=== PATIENT | female | born 1995 | race Caucasian/White ===

== ENCOUNTER 2018-08-30 23:08 | Inpatient (IN) ==
[2018-08-30] MEDS ORDERED: OXYTOCIN 30 UNITS/500 ML BAG IV PRN (23:38)
[2018-08-31 00:01] LABS: Hematocrit (blood only) 35.1 % (37-47); Hemoglobin 12.1 g/dL (12.0-16.0); Mean Corpuscular Volume 85.2 fL (80-100); Mean Platelet Volume 11.4 fL (7.4-10.4); Platelet Count 181 K/uL (130-400); RDW Coefficient of Variation 14.3 % (11.5-14.5); RDW Standard Deviation 44.5 fL (36.4-46.3); Red Blood Count 4.12 M/uL (4.2-5.4); White Blood Count 11.51 K/uL (4.8-10.8)
[2018-08-31 00:02] LABS: Mean Corpuscular Hgb Conc 34.5 g/dL (32-36)
[2018-08-31] MEDS ORDERED: fentaNYL 2MCG/ML ROPIV 1.25MG/ML 100 ML BAG EPI ONE (00:12)
[2018-08-31] MEDS ORDERED: BUPIVACAINE 0.25% 30 ML VIAL ONE (00:12)
[2018-08-31] MEDS ORDERED: fentaNYL citrate 100 MCG/2 ML VIAL ONE (00:12)
[2018-08-31] MEDS ORDERED: ePHEDrine sulfate 50 MG/ML AMP ONE (00:12)
[2018-08-31 00:17] LABS: Alanine Aminotransferase 18 U/L (12-78); Albumin Level 2.8 gm/dl (3.4-5.0); Aspartate Aminotransferase 16 U/L (15-37); BUN Creatinine Ratio 10.9 (10-20); Blood Urea Nitrogen 6 mg/dl (7-18); Calcium 9.7 mg/dl (8.5-10.1); Carbon Dioxide 23 mmol/L (21-32); Chloride 107 mmol/L (98-107); Est GFR (African American) > 150.0; Est GFR (Non-African American) 132.1; Glucose 90 mg/dl (70-99); Potassium 3.7 mmol/L (3.5-5.1); Sodium 138 mmol/L (136-145)
[2018-08-31 00:20] LABS: Albumin Globulin Ratio 0.7 (0.9-2); Alkaline Phosphatase 99 U/L (45-117); Bilirubin,Total 0.2 mg/dl (0.2-1); Globulin 4.2 gm/dl (2.5-4.0)
--- NOTE | 2018-08-31 00:32 | History & Physical Report ---
Date of Service August 31, 2018 Assessment & Plan (1) Uterine contractions at greater than 20 weeks of gestation: Patient is a 22 yo at 40.5 wks presenting in labor with regular ctxs and cervical change FHR reassuring, GBS negative Desires epidural for pain Plan admit, monitor, labs, epidural for acevedo, anticipate All questions were answered History of Present Illness Chief Complaint: Contractions Primary Care Provider: Erica Perez Patient is a 22 yo at 40.5 wks who started to feel ctxs yesterday got closer and stronger after 4 pm No LOF/VB +FM No DISLA/ Change in vision/ N&V/ Epigastric nor RUQ pain/ CP/ SOB/ fever/ chills Her has been uncomplicated GBS negative h/o FT in 2013 Allergies Allergy/AdvReac Type Severity Reaction Status Date / Time No Known Allergies Allergy Unverified 11/06/13 15:33 Home Medications Home Medications Medication Instructions Recorded Confirmed Type FERROUS SULFATE (IRON) #0 11/03/13 History Multivit/Min/Iron/Fol Ac/Pren 1 tab PO DAILY #0 tab 11/03/13 History ( Vitamin) Ferrous Sulfate 325 mg PO DAILY #30 tab 11/07/13 Rx Ibuprofen 600 mg PO Q4H PRN #30 tab 11/07/13 Rx Patient History Medical History No known health problems Surgical History No history of previous surgery Social History Preferred Language: Wallisian Communication Ability: Effective Associate 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: No Beliefs That Will Affect Care: None marital status: Current Living Situation: Family Other Information That Helps Us Care for You: No Feels Safe at Home: Yes Safety Concerns: Feels Safe At This Time Smoking Status: Never smoker Hx Alcohol Use: No Hx Substance Use: No OB History FT in 2013, 8 lb 6 oz [employer] History Denies any h/o STD's, no GC/ Chlamydia/ HSV Review of Systems All systems reviewed & are unremarkable except as noted in HPI & below Physical Exam Constitutional: WD/WN, vitals as above well developed and well nourished Uncomfortable with ctxs Genitourinary: Checked by her nurse / %/ -2, vertex Was 2 cm in office yesterday Results & Data Vital Signs (Past 12 Hours) Vital Signs Pulse BP 08/30/18 23:34 96 H 141/84 H Monitoring External Monitor Category I Tocodynamometer Ctxs q 2-3 min
[2018-08-31] MEDS ORDERED: fentaNYL 2MCG/ML ROPIV 1.25MG/ML 100 ML BAG EPI PRN (01:10)
[2018-08-31] MEDS ORDERED: PROMETHAZINE HCL 6.25 MG in SODIUM CHLORIDE 0.9% 50 ML IV PRN (01:10)
[2018-08-31] MEDS ORDERED: ePHEDrine sulfate 50 MG/ML AMP IV PRN (01:10)
[2018-08-31] MEDS ORDERED: DiphenhydrAMINE HCL 50 MG/ML VIAL IV PRN (01:10)
[2018-08-31] MEDS ORDERED: NALBUPHINE HCL INJ 10 MG/ML AMP IV PRN (01:10)
[2018-08-31] MEDS ORDERED: ONDANSETRON INJ 2 MG/ML 2 ML VIAL IV PRN (01:10)
[2018-08-31] MEDS ORDERED: NALOXONE HCL 0.4 MG/1 ML VIAL/CARP IV PRN (01:10)
[2018-08-31] MEDS ORDERED: NALOXONE HCL 1 MG in SODIUM CHLORIDE 0.9% 1000ML 1,000 ML IV PRN (01:10)
--- NOTE | 2018-08-31 01:10 | Anesthesiology Consultation ---
Date of Service August 31, 2018 Assessment & Plan (1) Encounter for pre-operative examination: Chart Review Chart Review: Patient NOT seen in Pre Admission Testing and Acceptable Risk for Labor Epidural Consults Requested none ASA ASA2 Proposed Anesthesia Anesthesia Type: Labor Epidural Risk / Benefits Reviewed With: PT / POA / Parent / Guardian, Accepts Plan and Informed Consent Obtained History Height/Weight Height: 5 ft 4 in Weight: 87.2 kg Allergies Allergy/AdvReac Type Severity Reaction Status Date / Time No Known Allergies Allergy Unverified 11/06/13 15:33 Medications Home Medications Medication Instructions Recorded Confirmed Last Taken FERROUS SULFATE (IRON) #0 11/03/13 Unknown Multivit/Min/Iron/Fol Ac/Pren 1 tab PO DAILY #0 tab 11/03/13 Unknown ( Vitamin) Ferrous Sulfate 325 mg PO DAILY #30 tab 11/07/13 Unknown Ibuprofen 600 mg PO Q4H PRN #30 tab 11/07/13 Unknown Active Medications Generic Name Dose Route Start Last Admin Trade Name Freq PRN Reason Stop Dose Admin Lactated Ringer's 1,000 mls @ 150 mls/hr 08/30/18 23:38 08/31/18 00:00 Lr IV 09/01/18 23:37 999 mls/hr .[id number] PRN Administration L&D Protocol Protocol NPO Date Last Intake of Fluids: 08/30/18 Time Last Intake of Fluids: 22:00 Date Last Intake of Solids: 08/30/18 Time Last Intake of Solids: 18:00 Past Medical History Medical History No known health problems Exercise / Class Metabolic Activity II 4-5 Yardwork/Stairs/Walk up hill Past Surgical History Surgical History No history of previous surgery Past Anesthesia History No Hx of Anesthesia Complications and No Family Hx of Anesthesia Complications History of PONV No Hx of PONV and No Hx of Motion Sickness Social History Smoking Status: Never smoker Hx Alcohol Use: No Hx Substance Use: No Physical Exam Vital Signs Last Vital Signs Temp 36.9 C 08/30/18 23:34 Pulse 96 H 08/31/18 01:06 Resp 18 08/31/18 00:16 BP 132/63 08/31/18 01:05 Pulse Ox 99 08/31/18 01:06 ENMT Mouth: no dentition abnormality Thyromental Distance: > or= 3.5 Finger Breadths Mallampati Class: II Neck normal visual inspection Respiratory normal respiratory effort Auscultation: lungs clear to auscultation bilaterally Cardiovascular Rate/Rhythm: regular rate and regular rhythm Psychiatric Orientation: alert
[2018-08-31] MEDS: LACTATED RINGER'S 1,000 ML IV PRN ×2 (01:13)
--- NOTE | 2018-08-31 05:53 | Obstetrical Progress Note ---
Date of Service August 31, 2018 Subjective Patient is reevaluated She received epidural for pain, had been comfortable, started to feel pressure with ctxs VE; 10/ 100%/ 0, OP, anterior fontanelle at 11 o'clock Leaking clear fluid FHR categ I Trial of push , no descent Plan peanut ball to help for internal roation and continue to monitor Results & Data Vital Signs (Past 12 Hours) Vital Signs Temp Pulse Resp BP Pulse Ox 08/31/18 05:47 112 H 132/56 L 08/31/18 05:46 104 H 96 08/31/18 05:45 98 H 93 08/31/18 05:41 109 H 95 08/31/18 05:37 93 H 94 08/31/18 05:36 106 H 95 08/31/18 05:32 105 H 93 08/31/18 05:31 99 H 95 08/31/18 05:30 98 H 131/73 08/31/18 05:26 102 H 95 08/31/18 05:25 106 H 94 08/31/18 05:21 98 H 95 08/31/18 05:20 108 H 94 08/31/18 05:16 104 H 95 08/31/18 05:11 100 H 95 08/31/18 05:06 98 H 95 08/31/18 05:01 106 H 128/73 96 08/31/18 04:56 97 H 96 08/31/18 04:51 102 H 96 08/31/18 04:46 104 H 95 08/31/18 04:45 103 H 171/75 H 08/31/18 04:41 102 H 96 08/31/18 04:36 105 H 95 08/31/18 04:31 105 H 96 08/31/18 04:26 103 H 96 08/31/18 04:21 101 H 96 08/31/18 04:16 103 H 96 08/31/18 04:15 104 H 146/71 H 08/31/18 04:11 102 H 96 08/31/18 04:06 99 H 95 08/31/18 04:05 37.2 C 08/31/18 04:01 104 H 96 08/31/18 04:00 105 H 126/71 08/31/18 03:56 101 H 96 08/31/18 03:51 93 H 95 08/31/18 03:46 91 H 95 08/31/18 03:44 90 125/59 L 08/31/18 03:41 92 H 96 08/31/18 03:36 102 H 96 08/31/18 03:31 92 H 95 08/31/18 03:30 86 128/59 L 08/31/18 03:26 92 H 95 08/31/18 03:21 93 H 95 08/31/18 03:16 90 96 08/31/18 03:14 90 131/69 08/31/18 03:11 92 H 95 08/31/18 03:06 94 H 96 08/31/18 03:01 90 130/67 96 08/31/18 02:56 92 H 96 08/31/18 02:51 98 H 96 08/31/18 02:46 93 H 130/64 95 08/31/18 02:41 93 H 96 08/31/18 02:36 100 H 96 08/31/18 02:31 98 H 96 08/31/18 02:29 97 H 136/76 08/31/18 02:26 97 H 96 08/31/18 02:21 94 H 97 08/31/18 02:16 94 H 129/75 96 08/31/18 02:11 93 H 97 08/31/18 02:06 100 H 96 08/31/18 02:01 97 H 96 08/31/18 02:00 36.9 C 08/31/18 01:59 105 H 140/70 08/31/18 01:56 98 H 96 08/31/18 01:51 96 H 96 08/31/18 01:46 94 H 96 08/31/18 01:45 91 H 131/71 08/31/18 01:41 96 H 96 08/31/18 01:36 89 97 08/31/18 01:31 90 97 08/31/18 01:29 87 127/70 08/31/18 01:26 90 98 08/31/18 01:21 95 H 98 08/31/18 01:16 95 H 98 08/31/18 01:14 90 129/70 08/31/18 01:11 94 H 133/67 99 08/31/18 01:08 92 H 133/65 08/31/18 01:06 96 H 99 08/31/18 01:05 93 H 132/63 05/19 01:02 93 H 133/65 08/31/18 01:01 99 H 100 08/31/18 00:57 102 H 134/60 08/31/18 00:56 108 H 100 08/31/18 00:51 101 H 100 08/31/18 00:16 18 08/30/18 23:34 36.9 C 96 H 141/84 H
[2018-08-31] MEDS ORDERED: DIPHTHERIA/TETANUS/PERTUSSIS 0.5 ML SYR/VIAL IM ONE (07:17)
[2018-08-31] MEDS ORDERED: ACETAMINOPHEN 325 MG TAB PO PRN (07:17)
[2018-08-31] MEDS ORDERED: OXYTOCIN 30 UNITS/500 ML BAG IV PRN (07:17)
[2018-08-31] MEDS ORDERED: SUPERCREAM 0.870% 15 GM JAR EXT PRN (07:17)
[2018-08-31] MEDS ORDERED: BENZOCAINE 20% AER SPR 82.5 GM CAN EXT PRN (07:17)
[2018-08-31] MEDS ORDERED: OXYCODONE/ACETAMINOPHEN 5mg/325mg TAB PO PRN (07:17)
[2018-08-31] MEDS ORDERED: HYDROCORTISONE ACETATE 25 MG SUPP PR PRN (07:17)
[2018-08-31] MEDS ORDERED: CEFAZOLIN 2000MG 2,000 MG/15 ML SYR IV ONE (07:45)
--- NOTE | 2018-08-31 07:53 | Delivery Summary ---
DATE OF OPERATION: 08/31/2018 TIME OF DELIVERY OF BABY: 06:53 a.m. TIME OF DELIVERY OF PLACENTA: 07:02 a.m. DETAILS OF DELIVERY: The patient was found to be fully dilated and desired to push. She pushed for about 35 minutes and delivered the head and turtle sign was noted and then anterior which was left shoulder was found to be stuck behind the pubic bone. Nursing team was noted of shoulder dystocia. They lowered the bed down and applied the suprapubic pressure and Akbar maneuver. I was unable to deliver the anterior shoulder. I then reached the posterior shoulder and delivered with minimal traction and the posterior arm and then anterior shoulder without difficulty within less than a minute. Baby was handed off to the mother where mouth and nose were suctioned. Cord was clamped x2 and cut and it was handed to the waiting pediatric team and Dr. Hearn. Cord blood was obtained. Perineum and vagina were checked for lacerations. There was a second-degree vaginal laceration in the lower third of vagina close to the hymen. It was repaired with 2-0 Vicryl in a running fashion. Excellent hemostasis was achieved. There was a first-degree periclitoral laceration which was repaired with 3-0 Vicryl and SH needle with [id number] stitches x2. Excellent hemostasis was achieved. Rest of the vagina and perineum were intact. The placenta was found to be in the vagina, delivered spontaneous as intact and complete. Uterus was explored, found to be empty. Lower segment was cleared of all clots and debris. EBL was 300ml. Fundus was firm. Mom and baby tolerated the procedure well. Sponge, lap, needle, instrument count was correct x2. Baby was a viable female infant, Apgars 8/9, weight is 4472 gr. No complications happened and I was present during whole procedure. I attest to the content of the Intraoperative Record and any orders documented therein. Any exceptions are noted below. MTDD
--- NOTE | 2018-08-31 08:55 | Anesthesia Procedure Note ---
Date of Service August 31, 2018 Anesthesia Post Epidural Note Vital Signs Vital Signs: Temp Pulse Resp BP Pulse Ox 08/31/18 08:29 108 H 113/66 08/31/18 08:15 103 H 107/82 08/31/18 08:00 97 H 107/54 L 08/31/18 07:44 104 H 126/63 08/31/18 07:29 102 H 123/71 08/31/18 07:15 85 120/63 08/31/18 07:13 115 H 125/55 L 08/31/18 07:01 117 H 93 08/31/18 07:00 120 H 134/61 08/31/18 06:56 124 H 96 08/31/18 06:51 153 H 97 08/31/18 06:46 162 H 96 08/31/18 06:41 149 H 96 08/31/18 06:36 145 H 97 08/31/18 06:31 119 H 95 08/31/18 06:30 104 H 123/69 08/31/18 06:26 102 H 98 08/31/18 06:24 102 H 94 08/31/18 06:21 98 H 95 08/31/18 06:19 102 H 94 08/31/18 06:16 99 H 92 08/31/18 06:15 96 H 132/71 08/31/18 06:13 100 H 94 08/31/18 06:11 36.9 C 105 H 96 08/31/18 06:06 113 H 96 08/31/18 06:04 90 93 08/31/18 06:01 100 H 96 08/31/18 06:00 95 H 131/73 08/31/18 05:57 94 H 94 08/31/18 05:56 91 H 95 08/31/18 05:52 93 H 94 08/31/18 05:51 101 H 96 08/31/18 05:47 112 H 132/56 L 08/31/18 05:46 104 H 96 08/31/18 05:45 98 H 93 08/31/18 05:41 109 H 95 08/31/18 05:37 93 H 94 08/31/18 05:36 106 H 95 08/31/18 05:32 105 H 93 08/31/18 05:31 99 H 95 08/31/18 05:30 98 H 131/73 08/31/18 05:26 102 H 95 08/31/18 05:25 106 H 94 08/31/18 05:21 98 H 95 08/31/18 05:20 108 H 94 08/31/18 05:16 104 H 95 08/31/18 05:11 100 H 95 08/31/18 05:06 98 H 95 08/31/18 05:01 106 H 128/73 96 08/31/18 04:56 97 H 96 08/31/18 04:51 102 H 96 08/31/18 04:46 104 H 95 08/31/18 04:45 103 H 171/75 H 08/31/18 04:41 102 H 96 08/31/18 04:36 105 H 95 08/31/18 04:31 105 H 96 08/31/18 04:26 103 H 96 08/31/18 04:21 101 H 96 08/31/18 04:16 103 H 96 08/31/18 04:15 104 H 146/71 H 08/31/18 04:11 102 H 96 08/31/18 04:06 99 H 95 08/31/18 04:05 37.2 C 08/31/18 04:01 104 H 96 08/31/18 04:00 105 H 126/71 08/31/18 03:56 101 H 96 08/31/18 03:51 93 H 95 08/31/18 03:46 91 H 95 08/31/18 03:44 90 125/59 L 08/31/18 03:41 92 H 96 08/31/18 03:36 102 H 96 08/31/18 03:31 92 H 95 08/31/18 03:30 86 128/59 L 08/31/18 03:26 92 H 95 08/31/18 03:21 93 H 95 08/31/18 03:16 90 96 08/31/18 03:14 90 131/69 08/31/18 03:11 92 H 95 08/31/18 03:06 94 H 96 08/31/18 03:01 90 130/67 96 08/31/18 02:56 92 H 96 08/31/18 02:51 98 H 96 08/31/18 02:46 93 H 130/64 95 08/31/18 02:41 93 H 96 08/31/18 02:36 100 H 96 08/31/18 02:31 98 H 96 08/31/18 02:29 97 H 136/76 08/31/18 02:26 97 H 96 08/31/18 02:21 94 H 97 08/31/18 02:16 94 H 129/75 96 08/31/18 02:11 93 H 97 08/31/18 02:06 100 H 96 08/31/18 02:01 97 H 96 08/31/18 02:00 36.9 C 08/31/18 01:59 105 H 140/70 08/31/18 01:56 98 H 96 08/31/18 01:51 96 H 96 08/31/18 01:46 94 H 96 08/31/18 01:45 91 H 131/71 08/31/18 01:41 96 H 96 08/31/18 01:36 89 97 08/31/18 01:31 90 97 08/31/18 01:29 87 127/70 08/31/18 01:26 90 98 08/31/18 01:21 95 H 98 08/31/18 01:16 95 H 98 08/31/18 01:14 90 129/70 08/31/18 01:11 94 H 133/67 99 08/31/18 01:08 92 H 133/65 08/31/18 01:06 96 H 99 08/31/18 01:05 93 H 132/63 08/31/18 01:02 93 H 133/65 08/31/18 01:01 99 H 100 08/31/18 00:57 102 H 134/60 08/31/18 00:56 108 H 100 08/31/18 00:51 101 H 100 08/31/18 00:16 18 08/30/18 23:34 36.9 C 96 H 141/84 H Pain Intensity Abdomen: Pain Intensity: 1 Notes Mental Status: alert / awake / arousable and participated in evaluation Nausea / Vomiting: adequately controlled Pain: adequately controlled Airway Patency, RR, SpO2: stable & adequate BP & HR: stable & adequate Hydration State: stable & adequate Neuraxial Anesthesia: was administered and sensory block is resolving Anesthetic Complications: no major complications apparent and Pt Satisfied with anesthetic care Epidural: Removed without complications and With tip intact
[2018-08-31] MEDS: DOCUSATE SODIUM 100 MG CAP PO SCH ×2 (11:16→20:28)
[2018-08-31] MEDS: IBUPROFEN 600 MG TAB PO PRN ×3 (11:16→20:28)
[2018-08-31] MEDS: PRENATAL VITAMIN 1 TAB PO SCH (11:16)
[2018-08-31] MEDS: FERROUS SULFATE 325 MG TAB PO SCH (11:16)
[2018-09-01 07:15] LABS: Hematocrit (blood only) 29.4 % (37-47); Hemoglobin 10.3 g/dL (12.0-16.0); Mean Corpuscular Volume 85.5 fL (80-100); Mean Platelet Volume 11.1 fL (7.4-10.4); Platelet Count 144 K/uL (130-400); RDW Coefficient of Variation 14.6 % (11.5-14.5); RDW Standard Deviation 45.8 fL (36.4-46.3); Red Blood Count 3.44 M/uL (4.2-5.4); White Blood Count 10.65 K/uL (4.8-10.8)
[2018-09-01] MEDS: PRENATAL VITAMIN 1 TAB PO SCH (07:53)
[2018-09-01] MEDS: IBUPROFEN 600 MG TAB PO PRN (07:53)
[2018-09-01] MEDS: FERROUS SULFATE 325 MG TAB PO SCH (07:53)
[2018-09-01] MEDS: DOCUSATE SODIUM 100 MG CAP PO SCH (07:53)
--- NOTE | 2018-09-01 09:23 | Obstetrical Progress Note ---
Date of Service September 01, 2018 Assessment & Plan (1) normal course: PPD #1 pt doing well pt wishes to go home today Subjective Ambulation: ambulating normally Voiding: no voiding problems Passing Gas:: Yes Diet Tolerance:: regular diet Lochia:: Small Feeding Type:: breast feeding Review of Systems All systems reviewed & are unremarkable except as noted in HPI & below Physical Exam Vital Signs (Past 24 Hours) Last Vital Signs Temp 37.0 C 09/01/18 07:38 Pulse 85 09/01/18 07:38 Resp 16 09/01/18 07:38 BP 116/61 09/01/18 07:38 Pulse Ox 99 08/31/18 23:40 Constitutional WD/WN, vitals as above well developed and well nourished Eyes PERRL, conjunctivae normal, anicteric sclerae Neck trachea midline, no thyromegaly Respiratory normal respiratory effort, lungs clear to auscultation Auscultation: no crackles, no rales and no wheezes Cardiovascular RRR, no murmur, no edema Gastrointestinal (Abdomen) normal bowel sounds, soft, nontender, no hepatosplenomegaly Uterus is below umbilicus Musculoskeletal no cyanosis or clubbing, extremities motor strength 5/5 Skin no rashes, warm and dry Neurologic patellar DTR's 2+ bilat, sensation intact Psychiatric A+Ox3, euthymic affect Genitourinary normal external appearance
[2018-09-01] MEDS ORDERED: BISACODYL 5 MG TABEC PO SCH (20:00)
[2018-09-02] MEDS ORDERED: BISACODYL 10 MG SUPP PR PRN (07:00)
== END 2018-09-01 12:40 | disposition home or self-care (01) | DRG 807 ==
LOC: OPB 23:08 → 4S1 23:09 → 4S2 08-31 08:45

== ENCOUNTER 2020-04-21 05:35 | Inpatient (IN) ==
[2020-04-21] MEDS ORDERED: ceFAZolin 2000MG 2,000 MG/15 ML SYR IV SCH (06:00)
[2020-04-21] MEDS ORDERED: LACTATED RINGER'S 1,000 ML IV SCH ×3 (06:00→09:41)
[2020-04-21] MEDS ORDERED: CITRIC ACID/SODIUM CITRATE 15 ML UDC PO SCH (06:00)
[2020-04-21 06:10] LABS: Basophils # (auto) 0.01 K/uL (0-0.2); Basophils % (auto) 0.1 %; Eosinophils # (auto) 0.07 K/uL (0-0.5); Eosinophils % (auto) 0.5 %; Hematocrit (blood only) 33.8 % (37-47); Hemoglobin 11.1 g/dL (12.0-16.0); Immature Granulocytes # (auto) 0.18 K/uL (0.00-0.02); Immature Granulocytes % (auto) 1.4 %; Lymphocytes # (auto) 2.31 K/uL (1.2-3.4); Lymphocytes % (auto) 17.5 %; Mean Corpuscular Hemoglobin 28.5 pg (25-34); Mean Corpuscular Hgb Conc 32.8 g/dL (32-36); Mean Corpuscular Volume 86.9 fL (80-100); Mean Platelet Volume 11.2 fL (7.4-10.4); Monocytes # (auto) 0.92 K/uL (0.11-0.59); Neutrophils # (auto) 9.72 K/uL (1.4-6.5); Neutrophils % (auto) 73.5 %; Platelet Count 203 K/uL (130-400); RDW Coefficient of Variation 14.2 % (11.5-14.5); RDW Standard Deviation 44.5 fL (36.4-46.3); Red Blood Count 3.89 M/uL (4.2-5.4); White Blood Count 13.21 K/uL (4.8-10.8)
[2020-04-21] MEDS ORDERED: fentaNYL citrate 100 MCG/2 ML VIAL ONE (07:11)
[2020-04-21] MEDS ORDERED: MoRPHine SULFATE PF 1 MG/ML 10 ML AMP/VIAL ONE (07:11)
--- NOTE | 2020-04-21 07:12 | Anesthesiology Consultation ---
Date of Service April 21, 2020 Assessment & Plan (1) Encounter for pre-operative examination: Chart Review Chart Review: Acceptable Risk for Surgery Consults Requested none ASA ASA2 Proposed Anesthesia Anesthesia Type: Spinal Risk / Benefits Reviewed With: PT / POA / Parent / Guardian, Accepts Plan and Informed Consent Obtained History Surgery Operation Date: 04/21/20 07:30 Proposed Procedures p Section in - Martha Burton MD Height/Weight Height: 5 ft 4 in Weight: 90.718 kg Allergies Allergy/AdvReac Type Severity Reaction Status Date / Time No Known Allergies Allergy Verified 04/17/20 11:29 Medications Home Medications Medication Instructions Recorded Confirmed Last Taken insulin NPH isoph U-100 human 38 - 60 unit SUBCUT BID 04/17/20 04/17/20 Unknown [Humulin N Pen] prenat.vits,lauri,[id number]-[id number] 1 tab PO QAM 04/17/20 04/17/20 Unknown [ #2] Past Medical History Medical History Gestational diabetes No known health problems Exercise / Class Metabolic Activity II 4-5 Yardwork/Stairs/Walk up hill Past Surgical History Surgical History No history of previous surgery Past Anesthesia History No Hx of Anesthesia Complications and No Family Hx of Anesthesia Complications History of PONV No Hx of PONV and No Hx of Motion Sickness Social History Smoking Status: Never smoker Do You Dip or Chew Tobacco: No Hx Alcohol Use: Yes Alcohol type: beer alcohol intake frequency: a few times a month Alcohol Intake Frequency Comment: WHEN NOT Hx Substance Use: No Physical Exam Vital Signs Last Vital Signs Temp 98.8 F 04/21/20 05:52 Pulse 109 H 04/21/20 05:52 Resp 18 04/21/20 07:00 BP 131/69 04/21/20 05:52 ENMT Mouth: no dentition abnormality Thyromental Distance: > or= 3.5 Finger Breadths Mallampati Class: II Neck normal visual inspection Respiratory normal respiratory effort Auscultation: lungs clear to auscultation bilaterally Cardiovascular Rate/Rhythm: regular rate and regular rhythm Testing Laboratory Results 04/21/20 05:59 Blood Type A Positive 01/12/21 05:59 Antibody Screen NEGATIVE 04/21/20 05:59
--- NOTE | 2020-04-21 07:22 | History & Physical Bridge Note ---
Date of Service April 21, 2020 History & Physical Bridge Note I have examined the patient, reviewed the History & Physical and in the interval since the performance of the History & Physical I have noted the following changes of clinical significance: no changes noted She understands the risks and benefits and she signed an informed consent for primary Low transverse Section.
[2020-04-21] MEDS ORDERED: ONDANSETRON INJ 2 MG/ML 2 ML VIAL IV PRN ×2 (07:39→09:21)
[2020-04-21] MEDS ORDERED: NALOXONE HCL 0.4 MG/1 ML VIAL/CARP IV PRN (07:39)
[2020-04-21] MEDS ORDERED: KETOROLAC 30 MG/ML VIAL IV PRN ×2 (07:39→09:21)
[2020-04-21] MEDS ORDERED: MEPERIDINE HCL 25 MG/ML CARP/VIAL IV PRN (07:39)
[2020-04-21] MEDS ORDERED: diphenhydrAMINE 50 MG/ML VIAL IV PRN ×2 (07:39→09:21)
[2020-04-21] MEDS ORDERED: LACTATED RINGER'S 500 ML IV PRN (07:39)
[2020-04-21] MEDS ORDERED: NALOXONE HCL 0.08 MG in SYRINGE 1.8 ML IV PRN (07:39)
[2020-04-21] MEDS ORDERED: ePHEDrine sulfate 50 MG/ML AMP IV PRN (07:39)
[2020-04-21] MEDS ORDERED: NALOXONE HCL 1 MG in SODIUM CHLORIDE 0.9% 1000ML 1,000 ML IV PRN (07:39)
[2020-04-21] MEDS ORDERED: MoRPHine SULFATE PF 1 MG/ML 10 ML AMP/VIAL INT SPINAL ONE (07:39)
[2020-04-21] MEDS ORDERED: SODIUM CHLORIDE 0.9% 1000ML 1,000 ML IV SCH (07:45)
[2020-04-21] MEDS ORDERED: NO NARCOTICS OR SEDATIVES SCH (07:45)
[2020-04-21] MEDS ORDERED: ONDANSETRON INJ 2 MG/ML 2 ML VIAL ONE (08:03)
[2020-04-21] MEDS ORDERED: OXYTOCIN 10 UNITS/ML VIAL ONE (08:03)
--- NOTE | 2020-04-21 08:57 | Post Operative Brief Note ---
Immediate Post Op Note v1 Date of Surgery April 21, 2020 Pre & Post Diagnosis Operation Date: 04/21/20 07:30 Pre-Op Diagnosis: Primary Section; Gestational Diabetic Type Ii; History of Previous Shoulder Dystocia Post-Op Diagnosis: Same as Preop I identified the patient and participated in the time-out.: Yes Procedure Operation Date: 04/21/20 07:30 Actual Procedures p Section in LD; Live Male Infant at 0755(Bilateral) - Martha Mcduffie MD Surgeon Martha Burton MD Superintendent [employer] JONATHAN Alvarado, JONATHAN Beck Estimated Blood Loss 600 Findings Consistent with Post-Op Diagnosis Drains Soto Catheter Anesthesia Type General/Epidural Complications none Disposition Accompanied Patient To Recovery: Yes Disposition: L&D
[2020-04-21] MEDS ORDERED: MEPERIDINE HCL 50 MG/ML CARP IV PRN (09:21)
[2020-04-21] MEDS ORDERED: HYDROCORTISONE ACETATE 25 MG SUPP PR PRN (09:21)
[2020-04-21] MEDS ORDERED: SENNA 8.6 MG TAB PO PRN (09:21)
[2020-04-21] MEDS ORDERED: diphenhydrAMINE Capsule 25 MG CAP PO PRN (09:21)
[2020-04-21] MEDS ORDERED: MAGNESIUM HYDROXIDE SUSP 30 ML UDC PO PRN (09:21)
[2020-04-21] MEDS ORDERED: PROMETHAZINE HCL 25 MG in SODIUM CHLORIDE 0.9% 50 ML IV PRN (09:21)
[2020-04-21] MEDS ORDERED: SUPERCREAM 0.870% 15 GM JAR EXT PRN (09:21)
[2020-04-21] MEDS ORDERED: DIPHTHERIA/TETANUS/PERTUSSIS 0.5 ML SYR/VIAL IM ONE (09:21)
[2020-04-21] MEDS ORDERED: BENZOCAINE 20% AER SPR 82.5 GM CAN EXT PRN (09:21)
--- NOTE | 2020-04-21 09:24 | Operative Report (OR) ---
DATE OF OPERATION: 04/21/2020 PREOPERATIVE DIAGNOSES: The patient is a 24-year-old G3, P2-0-0-2 at 39 weeks and 2 days of gestation with GDMA2 ( insulin controlled gestational diabetes), history of shoulder dystocia and desires delivery. POSTOPERATIVE DIAGNOSES: The patient is a 24-year-old G3, P2-0-0-2 at 39 weeks and 2 days of gestation with GDMA2 ( insulin controlled gestational diabetes), history of shoulder dystocia and desires delivery. PROCEDURE: Primary low transverse with Pfannenstiel skin incision. SURGEON: Martha Burton MD. SALES REPRESENTATIVE BUSINESS COURSES: JONATHAN Alvarado and JONATHAN Martinez. ESTIMATED BLOOD LOSS: 600 mL. FLUIDS: 1800 mL of lactated Ringer. DRAINS: Soto catheter drained 100 mL of clear urine. ANESTHESIA: Spinal, Dr. Plascencia. COMPLICATIONS: None. FINDINGS: Baby was a viable male infant delivered at 7:55 a.m. Apgars were 8/9. He was in cephalic presentation and weight was 3915 grams. MATERNAL FINDINGS: Normal uterus, fallopian tubes and ovaries. DESCRIPTION OF PROCEDURE: The patient was taken to the operating room where spinal anesthesia was given without difficulty. She was placed in dorsal supine position with a leftward tilt. She was prepared and draped in usual sterile fashion. Pfannenstiel skin incision was made and carried through to the underlying layer of fascia with the Bovie. Fascia was incised in the midline and incision was extended laterally with the help of Williamson scissors. Upper aspect of the fascial incision was then grasped with 2 Helen clamps, elevated, underlying rectus muscles were dissected off sharply with Williamson scissors. Lower aspect of the fascial incision was grasped with 2 Helen clamps, elevated, underlying rectus muscles were dissected off sharply with Williamson scissors. Rectus muscles were in the midline. Peritoneum was identified, entered bluntly with fingers. Peritoneal incision was extended superiorly and inferiorly with good visualization of the bladder. An abdominal wall retractor ( Arnol) was used to retract the abdominal wall Bladder blade was inserted. Vesicouterine peritoneum was identified, grasped with smooth pickups, entered sharply with Metzenbaum scissors. Bladder flap was created digitally and bladder blade was reinserted. Then lower uterine segment was incised in transverse fashion, incision was extended laterally with the bandage scissors and membranes were ruptured. Clear fluid was obtained. Head was brought to the incision. The patient's abdominal wall was tense with strong muscles, unable to deliver the head and decision was made to open up the edge of the fascia as well as the right side of the rectus muscles. After that the head was delivered without difficulty. Shoulders were delivered with minimal traction. Mouth and nose were suctioned. Cord was clamped x2 and cut and baby was handed to the waiting pediatric team with Dr. Hearn. The placenta was delivered manually. Uterus was exteriorized, cleared of all clots and debris. Uterine incision was repaired with 0 Vicryl in a running locked fashion, second imbricating layer was placed with 0 Vicryl in a running locked fashion. Excellent hemostasis was achieved. Posterior cul-de-sac was irrigated with warm normal saline and suctioned. Uterus was returned to the abdomen. The pelvis was irrigated with warm normal saline and suctioned. Uterine incision was checked to be hemostatic. Parietal peritoneum was reapproximated with 3-0 Vicryl in a running fashion and then the incised rectus muscle was repaired on the right side first with U-type sutures. Muscle edges were brought together and then the rest of the rectus muscles were reapproximated with 2-0 Vicryl in a running fashion. The surface of the the muscles and under the fascial area was hemostatic. Then the rectus fascia was reapproximated with #1 Vicryl in a running fashion. Subcuticular fat tissue was brought together with 3-0 Vicryl in a running fashion. Skin was closed with 4-0 Monocryl in a subcuticular fashion. The patient tolerated the procedure well. Sponge, lap, needle count was correct x3. Mom and baby stable. No complications happened. I was and my PA's were present during whole procedure. She was given 2 grams of cefazolin before surgery. She was taken to recovery room in stable condition. I attest to the content of the Intraoperative Record and any orders documented therein. Any exceptions are noted below. KIRSTIE
--- NOTE | 2020-04-21 10:28 | Anesthesiology Progress Note ---
Date of Service April 21, 2020 Anesthesia Post Procedure Vital Signs Vital Signs: Temp Pulse Resp BP Pulse Ox 04/21/20 10:22 84 100 04/21/20 10:18 81 128/64 04/21/20 10:17 80 100 04/21/20 10:12 87 100 04/21/20 10:08 84 127/71 04/21/20 10:07 83 100 04/21/20 10:02 91 H 100 04/21/20 10:00 18 04/21/20 09:58 83 123/69 04/21/20 09:57 84 100 04/21/20 09:52 83 100 04/21/20 09:50 18 04/21/20 09:49 90 122/68 04/21/20 09:47 84 100 04/21/20 09:42 92 H 100 04/21/20 09:40 18 04/21/20 09:38 91 H 120/68 04/21/20 09:37 91 H 100 04/21/20 09:32 95 H 100 04/21/20 09:30 18 04/21/20 09:28 88 120/68 04/21/20 09:27 91 H 99 04/21/20 09:22 94 H 98 04/21/20 09:20 18 04/21/20 09:18 96 H 115/77 04/21/20 09:17 88 99 04/21/20 09:12 91 H 99 04/21/20 09:10 97 H 18 90 04/21/20 09:07 91 H 99 04/21/20 09:02 87 100 04/21/20 09:01 82 120/58 L 04/21/20 09:00 97.3 F L 18 04/21/20 07:00 18 04/21/20 06:30 18 04/21/20 05:52 98.8 F 109 H 18 131/69 04/21/20 05:44 98.8 F 18 Transfer of Care Handoff Completed per policy Notes Mental Status: alert / awake / arousable and participated in evaluation Nausea / Vomiting: adequately controlled Pain: adequately controlled Airway Patency, RR, SpO2: stable & adequate BP & HR: stable & adequate Hydration State: stable & adequate Neuraxial Anesthesia: was administered and sensory block is resolving Anesthetic Complications: no major complications apparent and Pt Satisfied with anesthetic care
[2020-04-21] MEDS: OXYTOCIN 20 UNITS in LACTATED RINGER'S 1,000 ML IV SCH ×2 (11:00→18:29)
[2020-04-21] MEDS: SIMETHICONE 80 MG CHEW PO SCH ×3 (13:03→23:00)
[2020-04-21] MEDS: DOCUSATE SODIUM 100 MG CAP PO SCH (23:00)
[2020-04-22] MEDS ORDERED: DC INTRASPINAL MORPHINE SCH (01:39)
[2020-04-22 06:19] LABS: Basophils # (auto) 0.02 K/uL (0-0.2); Basophils % (auto) 0.2 %; Eosinophils # (auto) 0.11 K/uL (0-0.5); Eosinophils % (auto) 0.9 %; Hematocrit (blood only) 28.8 % (37-47); Hemoglobin 9.4 g/dL (12.0-16.0); Immature Granulocytes # (auto) 0.06 K/uL (0.00-0.02); Immature Granulocytes % (auto) 0.5 %; Lymphocytes # (auto) 1.64 K/uL (1.2-3.4); Mean Corpuscular Hemoglobin 28.5 pg (25-34); Mean Corpuscular Hgb Conc 32.6 g/dL (32-36); Mean Corpuscular Volume 87.3 fL (80-100); Mean Platelet Volume 11.6 fL (7.4-10.4); Monocytes # (auto) 0.72 K/uL (0.11-0.59); Monocytes % (auto) 6.1 %; Neutrophils # (auto) 9.18 K/uL (1.4-6.5); Neutrophils % (auto) 78.3 %; Platelet Count 170 K/uL (130-400); RDW Coefficient of Variation 14.2 % (11.5-14.5); RDW Standard Deviation 44.6 fL (36.4-46.3); White Blood Count 11.73 K/uL (4.8-10.8)
[2020-04-22] MEDS ORDERED: FERROUS SULFATE 325 MG TAB PO SCH (08:00)
[2020-04-22] MEDS: PRENATAL VITAMIN 1 TAB PO SCH (08:34)
[2020-04-22] MEDS: FERROUS SULFATE 325 MG TAB PO SCH ×2 (08:35→20:24)
[2020-04-22] MEDS: DOCUSATE SODIUM 100 MG CAP PO SCH ×2 (08:35→20:23)
[2020-04-22] MEDS: IBUPROFEN 600 MG TAB PO PRN ×3 (08:35→20:23)
[2020-04-22] MEDS: SIMETHICONE 80 MG CHEW PO SCH ×4 (08:43→20:22)
--- NOTE | 2020-04-22 09:52 | Surgery Progress Note ---
Date of Service April 22, 2020 Assessment & Plan Admission and Anticipated Discharge Date Admission Date: April 21, 2020 Subjective POD#1 doing well passing gas tolerating diet out of bed Physical Exam Constitutional: WD/WN, vitals as above comfortable incision c/d/i abdomen soft and non-tender no edema neg Fede's Results & Data ([facility]) Vital Signs (Past 12 Hours) Vital Signs Temp Pulse Resp BP Pulse Ox 04/22/20 04:00 36.8 C 114 H 18 107/64 97 04/22/20 02:00 18 98 04/22/20 01:03 18 98 04/22/20 00:00 18 98 04/21/20 23:30 36.5 C 100 H 18 138/83 98 04/21/20 23:00 18 98 04/21/20 22:00 18 99 Laboratory Results all 04/21/20 04/21/20 04/22/20 05:59 05:59 05:55 WBC 13.21 H 11.73 H RBC 3.89 L 3.30 L Hgb 11.1 L 9.4 L Hct 33.8 L 28.8 L MCV 86.9 87.3 MCH 28.5 28.5 MCHC 32.8 32.6 RDW Std Deviation 44.5 44.6 RDW Coeff of Annette 14.2 14.2 Plt Count 203 170 MPV 11.2 H 11.6 H Immature Gran % (Auto) 1.4 0.5 Neut % (Auto) 73.5 78.3 Lymph % (Auto) 17.5 14.0 [place] % (Auto) 7.0 6.1 Eos % (Auto) 0.5 0.9 Baso % (Auto) 0.1 0.2 Neut # (Auto) 9.72 H 9.18 H Lymph # (Auto) 2.31 1.64 [place] # (Auto) 0.92 H 0.72 H Eos # (Auto) 0.07 0.11 Baso # (Auto) 0.01 0.02 Immature Gran # (Auto) 0.18 H 0.06 H Blood Type A Positive Antibody Screen NEGATIVE
[2020-04-22] MEDS: oxyCODONE/ACETAMINOPHEN 5mg/325mg TAB PO PRN ×3 (10:44→20:23)
[2020-04-22] MEDS ORDERED: bisacodyL 5 MG TABEC PO SCH (20:00)
[2020-04-23 06:35] LABS: Hematocrit (blood only) 25.1 % (37-47); Hemoglobin 8.3 g/dL (12.0-16.0)
[2020-04-23] MEDS: IBUPROFEN 600 MG TAB PO PRN ×2 (06:51→10:35)
[2020-04-23] MEDS: oxyCODONE/ACETAMINOPHEN 5mg/325mg TAB PO PRN ×2 (06:52→10:35)
--- NOTE | 2020-04-23 07:52 | Obstetrical Progress Note ---
Date of Service April 23, 2020 Assessment & Plan Admission and Anticipated Discharge Date Admission Date: April 21, 2020 Subjective Patient is seen and examined. She feels well, no complaints. Pain is under control with oral meds. Ambulating without dizziness Voiding without difficulty Tolerating regular diet with out N&V Flatus BM none Bleeding is minimal No fever/ chills/ CP/ SOB/ N&V/ Leg pain Breast feeding without problems Lab Results 04/21/20 04/21/20 04/22/20 Range/Units 05:59 05:59 05:55 WBC 13.21 H 11.73 H (4.8-10.8) K/uL RBC 3.89 L 3.30 L (4.2-5.4) M/uL Hgb 11.1 L 9.4 L (12.0-16.0) g/dL Hct 33.8 L 28.8 L (37-47) % MCV 86.9 87.3 (80-100) fL MCH 28.5 28.5 (25-34) pg MCHC 32.8 32.6 (32-36) g/dL RDW Std Deviation 44.5 44.6 (36.4-46.3) fL RDW Coeff of Annette 14.2 14.2 (11.5-14.5) % Plt Count 203 170 (130-400) K/uL MPV 11.2 H 11.6 H (7.4-10.4) fL Immature Gran % (Auto) 1.4 0.5 % Neut % (Auto) 73.5 78.3 % Lymph % (Auto) 17.5 14.0 % [place] % (Auto) 7.0 6.1 % Eos % (Auto) 0.5 0.9 % Baso % (Auto) 0.1 0.2 % Neut # (Auto) 9.72 H 9.18 H (1.4-6.5) K/uL Lymph # (Auto) 2.31 1.64 (1.2-3.4) K/uL [place] # (Auto) 0.92 H 0.72 H (0.11-0.59) K/uL Eos # (Auto) 0.07 0.11 (0-0.5) K/uL Baso # (Auto) 0.01 0.02 (0-0.2) K/uL Immature Gran # (Auto) 0.18 H 0.06 H (0.00-0.02) K/uL Blood Type A Positive Antibody Screen NEGATIVE 04/23/20 Range/Units 05:54 WBC (4.8-10.8) K/uL RBC (4.2-5.4) M/uL Hgb 8.3 L (12.0-16.0) g/dL Hct 25.1 L (37-47) % MCV (80-100) fL MCH (25-34) pg MCHC (32-36) g/dL RDW Std Deviation (36.4-46.3) fL RDW Coeff of Annette (11.5-14.5) % Plt Count (130-400) K/uL MPV (7.4-10.4) fL Immature Gran % (Auto) % Neut % (Auto) % Lymph % (Auto) % [place] % (Auto) % Eos % (Auto) % Baso % (Auto) % Neut # (Auto) (1.4-6.5) K/uL Lymph # (Auto) (1.2-3.4) K/uL [place] # (Auto) (0.11-0.59) K/uL Eos # (Auto) (0-0.5) K/uL Baso # (Auto) (0-0.2) K/uL Immature Gran # (Auto) (0.00-0.02) K/uL Blood Type Antibody Screen Vital Signs Temp Pulse Resp BP Pulse Ox 04/22/20 23:00 36.8 C 112 H 16 126/74 97 04/22/20 19:25 36.6 C 110 H 16 129/77 98 04/22/20 15:50 36.6 C 105 H 18 119/74 98 04/22/20 08:45 37 C 109 H 18 119/75 98 PE: General: Alert, orientedx3, NAD CVS: S1S2 RRR Lungs; CTAB Abd: soft, NT, ND, BS+, fundus firm, below Umbilicus Incision: Clean, dry, intact Perineum intact, Lochia rubra minimal Ext; NT, no edema AP: 24 yo s/p C Section, pod# 2 VSS Afebrile doing well Anemic: asymptomatic, on federico Continue routine postop care Desires d/c today Encourage ambulation, PO intake All questions were answered Discussed how to take iron, and iron rich food D/C home , f/u in office Results & Data ([facility]) Vital Signs (Past 12 Hours) Vital Signs Temp Pulse Resp BP Pulse Ox 04/22/20 23:00 36.8 C 112 H 16 126/74 97
[2020-04-23] MEDS: DOCUSATE SODIUM 100 MG CAP PO SCH (08:19)
[2020-04-23] MEDS: FERROUS SULFATE 325 MG TAB PO SCH (08:19)
[2020-04-23] MEDS: SIMETHICONE 80 MG CHEW PO SCH (08:19)
[2020-04-23] MEDS: PRENATAL VITAMIN 1 TAB PO SCH (08:19)
[2020-04-23] MEDS ORDERED: bisacodyL 10 MG SUPP PR PRN (09:09)
--- NOTE | 2020-04-29 08:44 | Discharge Summary (DS) ---
DETAILS OF ADMISSION: The patient is a 24-year-old G3, P2-0-0-2 at 39 weeks and 2 days of gestation with gestational diabetes controlled with insulin and history of shoulder dystocia with prior and she desired and scheduled primary elective to avoid shoulder dystocia. She was admitted on 04/21/2020 and she delivered a viable male infant at 7:55 a.m. Apgars were 8/9, and the baby weighed 3915 grams. Her surgery was uncomplicated. See dictated op note for details. On postop period, the patient was doing well. Vital signs stable, afebrile. Urine output was adequate. On postop day #1, the patient was doing well. Vital signs stable, afebrile. H and H was 9.4/28.8. Physical exam was unremarkable. Homans sign negative. Incision was clean, dry and intact. She was tolerating regular diet, passing gas. She was advanced to ambulation and regular diet. Postop day #2, the patient was doing well. Vital signs stable, afebrile. She was ambulating without dizziness, tolerating regular diet, passing gas. She was without any problems. She desired to be discharged on postop day #2. Her repeat H and H was stable at 8.4/25.1. Discharge instructions were given when to call, prescriptions were written for pain. She is to be seen in office in a week. All questions were answered.
== END 2020-04-23 10:58 | disposition home or self-care (01) | DRG 788 ==
LOC: 4S1 05:35 → EDSTATUS 07:30 → 4S2 11:15

== ENCOUNTER 2023-09-13 05:39 | Inpatient (IN) ==
--- NOTE | 2023-08-28 09:13 | Anesthesiology Consultation ---
Date of Service August 28, 2023 Assessment & Plan (1) Encounter for pre-operative examination: Infectious disease screening: Per assessment on 08/28/23: No known infectious disease contacts or current infectious disease symptoms. No noted recent Covid positive test result. 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 Surgery Operation Date: 09/13/23 07:30 Proposed Procedures p Repeat Section, - Martha Burton MD s With Bilateral Salpingectomy - Martha Burton MD Height/Weight Height: 5 ft 5 in Weight: 90.718 kg Allergies Allergy/AdvReac Type Severity Reaction Status Date / Time No Known Allergies Allergy Verified 08/28/23 08:18 Medications Home Medications Medication Instructions Recorded Confirmed Last Taken prenat.vits,lauri,[id number] 1 tab PO QAM 04/17/20 08/28/23 Unknown ferrous sulfate 325 mg (65 mg 325 mg PO BIDM #60 tabs 04/23/20 08/28/23 Unknown iron) tablet,delayed release Past Medical History Medical History Anemia Taking iron Gestational diabetes diet controlled Past Surgical History Surgical History History of postoperative nausea and vomiting with last , resolved with med Hx of section (04/21/20) Social History Smoking Status: Never smoker Do You Dip or Chew Tobacco: No Hx Alcohol Use: No Alcohol type: beer alcohol intake frequency: a few times a month Hx Substance Use: No substance use type: does not use
[2023-09-13] MEDS: LACTATED RINGER'S 1,000 ML IV SCH (06:00)
[2023-09-13 06:11] LABS: Basophils # (auto) 0.05 K/uL (0.00-0.20); Basophils % (auto) 0.4 %; Eosinophils # (auto) 0.07 K/uL (0.00-0.50); Eosinophils % (auto) 0.6 %; Hematocrit (blood only) 35.3 % (37.0-47.0); Hemoglobin 11.9 g/dl (12.0-16.0); Immature Granulocytes # (auto) 0.16 K/uL (0.01-0.20); Immature Granulocytes % (auto) 1.4 %; Lymphocytes # (auto) 2.08 K/uL (1.20-3.40); Lymphocytes % (auto) 18.6 %; Mean Corpuscular Hemoglobin 29.2 pg (25.0-34.0); Mean Corpuscular Hgb Conc 33.7 g/dL (32.0-36.0); Mean Corpuscular Volume 86.5 fL (80.0-100.0); Mean Platelet Volume 11.3 fL (9.4-12.4); Monocytes # (auto) 0.73 K/uL (0.11-0.59); Monocytes % (auto) 6.5 %; Neutrophils # (auto) 8.07 K/uL (1.40-6.50); Neutrophils % (auto) 72.5 %; Platelet Count 185 K/uL (130-400); RDW Coefficient of Variation 13.9 % (11.5-14.5); Red Blood Count 4.08 M/uL (4.20-5.40); White Blood Count 11.16 K/ul (4.8-10.8)
[2023-09-13] MEDS ORDERED: fentaNYL citrate PF 100 MCG/2 ML VIAL ONE (06:52)
[2023-09-13] MEDS ORDERED: PHENYLEPHRINE HCL 25 MG/250 ML NSS IV ONE (06:52)
[2023-09-13] MEDS ORDERED: OXYTOCIN 10 UNITS/ML VIAL ONE (06:52)
[2023-09-13] MEDS ORDERED: MoRPHine SULFATE PF 1 MG/ML 10 ML AMP/VIAL ONE (06:52)
[2023-09-13] MEDS ORDERED: NALOXONE HCL 1 MG in SODIUM CHLORIDE 0.9% 1,000 ML IV PRN (07:16)
[2023-09-13] MEDS ORDERED: MoRPHine SULFATE 2 MG/ML CARP IV PRN (07:16)
[2023-09-13] MEDS ORDERED: diphenhydrAMINE 50 MG/ML VIAL IV PRN (07:16)
[2023-09-13] MEDS ORDERED: NALOXONE HCL 0.08 MG in SYRINGE 1.8 ML IV PRN (07:16)
[2023-09-13] MEDS ORDERED: NALOXONE HCL 0.4 MG/1 ML VIAL/CARP IV PRN (07:16)
[2023-09-13] MEDS ORDERED: ePHEDrine sulfate 50 MG/ML AMP IV PRN (07:16)
[2023-09-13] MEDS ORDERED: NALBUPHINE HCL 5 MG in SYRINGE 0 ML IV PRN (07:16)
[2023-09-13] MEDS ORDERED: LACTATED RINGER'S 500 ML IV PRN (07:16)
[2023-09-13] MEDS ORDERED: HYDROmorphone INJ 0.5 MG/0.5 ML SYR IV PRN (07:16)
[2023-09-13] MEDS ORDERED: NO NARCOTICS OR SEDATIVES SCH (07:30)
[2023-09-13] MEDS ORDERED: DC INTRASPINAL MORPHINE SCH (07:30)
--- NOTE | 2023-09-13 07:42 | History & Physical Report ---
Date of Service September 13, 2023 Assessment & Plan (1) History of section complicating : Plan: 27 yo at 39.3 wks, here for scheduled R CS and tubal sterilization VSS Afebrile FHR reassuring She understands the risks and benefits and signed and informed consent All questions were answered. Admission and Anticipated Discharge Date Admission Date: September 13, 2023 History of Present Illness Primary Care Provider: Unknown Unknown Patient is a 27 yo at 39.3 wks who was scheduled for RCS+BTL No complaints No ctxs/ LOF/VB +FM's Her has been complicated by 1) GDMA1, Diet controlled 2) h/o prior shoulder dystocia 3) h/o Csection Understands tubal sterilization is permanent, surgical We discussed non surgical reversible contraceptive options but she declined she still wants tubal sterilization, agrees with salpingectomy if able or coagulation per findings Allergies Allergy/AdvReac Type Severity Reaction Status Date / Time No Known Allergies Allergy Verified 09/13/23 05:50 Home Medications Medication Instructions Recorded Confirmed Type prenat.vits,lauri,[id number] 1 tab PO QAM 04/17/20 09/13/23 History ferrous sulfate 325 mg (65 mg 325 mg PO BIDM #60 tabs 04/23/20 09/13/23 Rx iron) tablet,delayed release Patient History Medical History Anemia Taking iron Gestational diabetes diet controlled Surgical History History of postoperative nausea and vomiting with last , resolved with med Hx of section (04/21/20) Social History Smoking Status: Never smoker Second Hand Exposure: No; Do You Dip or Chew Tobacco: No; Tobacco Cessation Education Requested by Patient: No Hx Alcohol Use: No Hx Substance Use: No Preferred Language: Guyanese Communication Ability: Effective 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 Required: No Beliefs That Will Affect Care: None marital status: Current Living Situation: Spouse and Family Other Information That Helps Us Care for You: No Feels Safe at Home: Yes Safety Concerns: Feels Safe At This Time Assistive Devices: None Review of Systems as per Subjective / HPI Physical Exam Constitutional: WD/WN, vitals as above well developed, well nourished and comfortable Genitourinary: OB Exam Monitor Tracing: + external uterine monitor used and + category I Results & Data Vital Signs (Past 12 Hours) Vital Signs Temp Pulse Resp BP 09/13/23 06:00 37.3 C 91 H 18 124/71 09/13/23 05:52 37.3 C 91 H 18 124/71 Laboratory Results Lab Results 09/13/23 09/13/23 Range/Units 05:49 06:23 WBC 11.16 H (4.8-10.8) K/ul RBC 4.08 L (4.20-5.40) M/uL Hgb 11.9 L (12.0-16.0) g/dl Hct 35.3 L (37.0-47.0) % MCV 86.5 (80.0-100.0) fL MCH 29.2 (25.0-34.0) pg MCHC 33.7 (32.0-36.0) g/dL RDW Std Deviation 43.0 (36.4-46.3) fL RDW Coeff of Annette 13.9 (11.5-14.5) % Plt Count 185 (130-400) K/uL MPV 11.3 (9.4-12.4) fL Immature Gran % (Auto) 1.4 % Neut % (Auto) 72.5 % Lymph % (Auto) 18.6 % [place] % (Auto) 6.5 % Eos % (Auto) 0.6 % Baso % (Auto) 0.4 % Neut # (Auto) 8.07 H (1.40-6.50) K/uL Lymph # (Auto) 2.08 (1.20-3.40) K/uL [place] # (Auto) 0.73 H (0.11-0.59) K/uL Eos # (Auto) 0.07 (0.00-0.50) K/uL Baso # (Auto) 0.05 (0.00-0.20) K/uL Immature Gran # (Auto) 0.16 (0.01-0.20) K/uL POC Glucose 93 (70-99) mg/dl Blood Type A Positive Antibody Screen NEGATIVE
[2023-09-13] MEDS: CITRIC ACID/SODIUM CITRATE 15 ML UDC PO SCH (07:44)
[2023-09-13] MEDS: ceFAZolin 2000MG 2,000 MG/15 ML SYR IV SCH (07:44)
[2023-09-13] MEDS: ARISTA ABSORBABLE HEMOSTAT 3GM TOP ONE (08:51)
[2023-09-13] MEDS ORDERED: ePHEDrine sulfate 50 MG/5 ML SYR ONE (09:14)
[2023-09-13] MEDS ORDERED: HYDROCORTISONE ACETATE 25 MG SUPP PR PRN (09:18)
[2023-09-13] MEDS ORDERED: BENZOCAINE 20% SPRY 85 APPLN/85 GM CAN EXT PRN (09:18)
[2023-09-13] MEDS ORDERED: MAGNESIUM HYDROXIDE SUSP 30 ML UDC PO PRN (09:18)
[2023-09-13] MEDS ORDERED: ONDANSETRON INJ 2 MG/ML 2 ML VIAL IV PRN (09:18)
[2023-09-13] MEDS ORDERED: SENNA 8.6 MG TAB PO PRN (09:18)
[2023-09-13] MEDS ORDERED: ACETAMINOPHEN 325 MG TAB PO PRN (09:23)
--- NOTE | 2023-09-13 09:25 | Operative Report ---
Post Operative Report Pre & Post Diagnosis Operation Date: 09/13/23 07:30 Pre-Op Diagnosis: Repeat section with Bilateral tubal sterilization Post-Op Diagnosis: same I identified the patient and participated in the time-out.: Yes Procedure Operation Date: 09/13/23 07:30 Actual Procedures p Repeat Section for living female child at 0819(Bilateral) - Martha Burton MD s with Bilateral Salpingectomy - Martha Burton MD Surgeon Martha Burton MD Dialer JONATHAN Palomares Estimated Blood Loss 1,137 (QBL) Findings Consistent with Post-Op Diagnosis Baby was a viable female delivered in cephalic presentation Apgars 8, 9, weight is 3810 g Maternal findings: normal uterus fallopian tubes and ovaries. Specimens Placenta Drains Soto catheter: 100 ml of clear urine Anesthesia Type Spinal Complications none Indications Patient is a 27-year-old -0-0-3 at 39 weeks and 3 days of gestation with history of prior and desires permanent sterilization. Description of Procedure Patient was taken to operating room where a spinal anesthesia was given without difficulty. She was placed in dorsal supine position with a leftward tilt. She was prepared and draped in usual sterile fashion. A financial skin incision was made and carried through to the underlying layer of fascia with the Bovie. Fascia was incised in the midline and incision was extended laterally with the help of Williamson scissors. Then the upper aspect of the fascial incision was grasped with 2 Helen clamps elevated the underlying rectus muscles were dissected off sharply with Williamson scissors. Same thing was done on the lower incision. Then the muscles were in the midline, peritoneum was identified grasped with 2 pickups and entered sharply with Metzenbaum scissors. Peritoneal incision was extended superior and inferiorly with good visualization of the bladder. The bladder blade was inserted. Vesicouterine peritoneum was identified, grasped with pickups and entered sharply with Metzenbaum scissors, bladder flap was created digitally and bladder blade was reinserted. Uterus was incised in transverse fashion, incision was extended laterally with finger, membranes were ruptured and clear fluid was obtained. Baby's head was delivered, followed by shoulders with minimal traction. There was a nuchal cord around the neck x1, it was reduced. Mouth and nose were suctioned there was dried on the field. The cord was clamped timesx2 and cut. She was handed off to the pediatric team. Then the placenta was delivered manually as intact and complete. Uterus was externalized and cleared of all clots and debris's. Uterine incision was repaired with 0 Vicryl in a running locked fashion, second umbricating layer was placed with the same suture in running locked fashion. Excellent hemostasis achieved. Cul-de-sac and the pelvis was irrigated with warm normal saline and suctioned. Incision was checked of anesthetic again. Both fallopian tubes were identified held with [place] clamps. Both were Coagulated with hand held ligature for about 3-4 cm on avascular sites. They were hemostatic. Uterus was returned to the abdomen, parietal peritoneum was reapproximated with 3-0 Vicryl in a running fashion and the muscles were reapproximated with 2-0 Vicryl in a running fashion. All of the fascia and rectus muscles were hemostatic. Rectus fascia was reapproximated with 0 Vicryl starting from both columns meeting in the midline. Subcuticular fat tissue was brought together with 2-0 Vicryl in a running fashion, skin was closed with 4-0 Monocryl in a subcuticular cuticular fashion. The mom and baby tolerated procedure well. Sponge needle instrument count was correct x3. No complications happened, I was present during whole procedure. My assistant corporation counsel was needed for retraction, hemostasis and aid during delivery of I attest to the content of the Intraoperative Record and any orders documented therein. Any exceptions are noted below.
[2023-09-13] MEDS ORDERED: LACTATED RINGER'S 1,000 ML IV SCH (09:30)
--- NOTE | 2023-09-13 10:44 | Anesthesiology Progress Note ---
Date of Service September 13, 2023 Anesthesia Post Procedure Vital Signs Vital Signs: Temp Pulse Pulse Resp BP Pulse Ox 09/13/23 10:42 97 H 101/54 L 09/13/23 10:38 92 H 100 09/13/23 10:33 94 H 100 09/13/23 10:32 98 H 105/56 L 09/13/23 10:28 98 H 99 09/13/23 10:23 93 H 100 09/13/23 10:22 90 102/55 L 09/13/23 10:20 16 09/13/23 10:18 95 H 100 09/13/23 10:13 93 H 100 09/13/23 10:12 90 101/59 L 09/13/23 10:10 16 09/13/23 10:08 92 H 100 09/13/23 10:05 16 09/13/23 10:03 95 H 100 09/13/23 10:02 96 H 104/60 09/13/23 09:58 94 H 99 09/13/23 09:55 16 09/13/23 09:53 105 H 99 09/13/23 09:52 93 H 112/58 L 09/13/23 09:48 89 100 09/13/23 09:45 16 09/13/23 09:43 100 09/13/23 09:43 100 H 09/13/23 09:43 99 H 106/58 L 09/13/23 09:40 102 H 85 L 09/13/23 09:38 103 H 100 09/13/23 09:33 90 99 09/13/23 09:30 16 09/13/23 09:28 107 H 100 09/13/23 09:23 98 H 100 09/13/23 09:20 36.7 C 99 H 16 09/13/23 09:18 100 09/13/23 09:18 101 H 09/13/23 09:18 99 H 102/59 L 09/13/23 06:00 37.3 C 91 H 18 124/71 09/13/23 05:52 37.3 C 91 H 18 124/71 Transfer of Care Handoff Completed per policy Notes Mental Status: alert / awake / arousable and participated in evaluation Patient Amnestic to Procedure: Yes Nausea / Vomiting: adequately controlled Pain: adequately controlled Airway Patency, RR, SpO2: stable & adequate BP & HR: stable & adequate Hydration State: stable & adequate Neuraxial Anesthesia: was administered and sensory block is resolving Anesthetic Complications: no major complications apparent and Pt Satisfied with anesthetic care
[2023-09-13] MEDS: OXYTOCIN 20 UNITS/LR 1,002 ML IV SCH (11:12)
[2023-09-13] MEDS: KETOROLAC 30 MG/ML VIAL IV PRN (11:12)
[2023-09-13] MEDS: ACETAMINOPHEN 1,000 MG/100 ML VIAL IV STA (13:05)
--- OUTSIDE RECORDS SUMMARY | 2023-09-13 13:57 | External Medical Summary | Summary of Care ---
Author Name Unknown Organization [facility] Address [address] [place] [address] Phone [phone] Care Team Providers Care Certified Welding Inspector Name Role Phone Maury Boss DO Primary Care Provider Reason for Visit * Reason Comments and diabetes ADAPT follow-up Encounter Details Date Type Department Care Team ([facility] st Contact Info) Description 08/23/2023 8:30 AM EDT Telemedicine Vegetable Farming Supervisor Obstetric MFM [facility] [address] [place] [address] Jennifer Aviles, SANITATION SUPERINTENDENT [address] [place] [address] Diet controlled gestational diabetes mellitus (GDM) in third trimester*; Supervision of high-risk , third trimester Allergies No known active allergiesdocumented as of this encounter (statuses as of 08/23/2023) Medications Medication Sig Dispensed Refills Start Date End Date Status Vit-Fe Fumarate-FA ( FORMULA) 28-0.8 MG TABS Take by mouth. 0 Active Breast PumpIndications:B reast feeding status of mother KIM 09/16/23, Z39.1, double electric pump 1 Each 0 4 Active Additional Information Patient not taking.Reported on 07/05/2023 Kapture Verio Flex System w/Device Kit Use to test blood sugars 4 times daily (fasting, 1 hour after breakfast, lunch, and dinner) 3.21 Each 0 4 Active OneTouch Verio In Vitro Strip (Glucose Blood) Use to test blood sugars 4 times daily (fasting, 1 hour after breakfast, lunch, and dinner) 425 Each 6 4 Active Fingerstix Lancets Check blood sugar four times per day as instructed 642.86 Each 6 4 Active Iron-Vitamin C 65-125 MG Oral Tablet (Vitron C) Take 1 Tablet by mouth in the morning. 90 Tablet 2 4 Active Docusate Sodium 100 MG Oral Capsule (Colace) Take 1 Capsule by mouth 3 times a day as needed for Constipation. 60 Capsule 5 4 Active Additional Information Patient not taking.Reported on 07/05/2023 HumuLIN N KwikPen 100 UNIT/ML Subcutaneous Suspension Pen-injector (Insulin NPH (Human) (Isophane)) Inject under the skin 15 units with breakfast and 10 units at bedtime 15 mL 2 4 08/23/19 24 Discontinued BD Pen Needle Mini U/F 31G X 5 MM (Insulin Pen Needle) Use with insulin twice daily 100 Each 3 4 08/23/19 24 Discontinued documented as of this encounter (statuses as of 08/23/2023) Active Problems Problem Noted Date Diagnosed Date Diet controlled gestational diabetes mellitus (GDM) in third trimester 06/29/2023 Overview: Diagnosed at 28 weeks Patient deferred Nutrition referral at this time. OneTouch Verio meter Of note: history of GDMA2 (insulin) in previous Lab Results Component Value Date/Time 50-G GESTATIONAL GLUCOSE, 1 HOUR - [facility] 149 (H) 03/09/2023 10:11 AM 100-G GESTATIONAL GLUCOSE, 1 HOUR - [facility] 212 (H) 06/29/2023 08:14 AM 100-G GESTATIONAL GLUCOSE, 2 HOUR - [facility] 194 (H) 06/29/2023 09:19 AM 100-G GESTATIONAL GLUCOSE, 3 HOUR - [facility] 102 06/29/2023 10:14 AM 100-G GESTATIONAL GLUCOSE, FASTING - [facility] 93 06/29/2023 07:12 AM 07/05/23: MFM ADAPT consult complete. Enrolled in Current Health. Instructions provided to report blood sugars each week for MFM review 07/11/23: RPM elevated fasting; recommended dietary changes and not fasting longer than 8-10 hours at night; will recommend FU ADAPT if fasting blood sugars don't improve 07/18/23: RPM reviewed; fastings improved; missing several values; Stable; diet controlled 07/26/23: RPM reviewed; missing several values; Stable; diet controlled 08/01/23: RPM reviewed; missing values and elevated FBS; recommend F/U ADAPT visit (MFM PARS notified to assist patient with scheduling) 08/08/23: RPM reviewed; missing values and elevated after-breakfast values; will again recommend F/U ADAPT visit and will provide patient with phone # to schedule as well 08/15/23: RPM reviewed; elevated dinner values; FU ADAPT scheduled on 08/18/23 08/18/2023 Follow up ADAPT compete; elevated fasting and PP values; ordered Humulin N 15 units with breakfast and 10 units at bedtime; needs [facility] growth scan in 1-2 weeks. Message sent to [facility] scheduling. 08/21/23: RPM message received; patient declines starting insulin at this time; will recommend follow-up ADAPT visit this week to discuss further 08/23/23: ADAPT follow-up complete. Blood sugars have improved since last week; virtually all fasting and postprandial values WNL with dietary changes. Continue diet control for now. Last Assessment & Plan: She presents for an assessment of growth and anatomy secondary to a recent diagnosis of GDM. She has a history of macrosomia and a shoulder dystocia in her 2nd and delivered via in her 3rd . Per review of SANITATION SUPERINTENDENT documentation, her blood glucose values have overall been stable with diet control. She states that she is planning a repeat . We reviewed the results of today's ultrasound. The estimated weight is appropriate for gestational age in the 79th percentile. The visualized anatomy is unremarkable in appearance. Some structures are suboptimally imaged secondary to position/gestational age. The amniotic fluid amount appears normal. We discussed that ultrasound is not able to identify all anomalies, but it is reassuring that no anomalies were seen today. History of shoulder dystocia in prior , currently 03/09/2023 Overview: 2nd baby H/O section 02/09/2023 Overview: Desires repeat History of gestational diabe rickey in prior , currently 02/09/2023 Overview: Early glucola- failed. Passed 3hr GTT at 13w Supervision of high-risk , third trimes ter 12/11/2019 Overview: A+, rubella immune Planning to breast feed Boy Supervision of normal 01/08/2018 Chronic tension-type headache, not intractable 1 ADVANCE DIRECTIVE INFORMATION 04/22/2013 Overview: No, Advance Directive brochure offered, patient declined. Estimated Date of Delivery Comme nts Yes 09/16/2023 Based on last me nstrual period of 2022 (Exact Date) documented as of this encounter (statuses as of 08/23/2023) Resolved Problems Problem Noted Date Diagnosed Date Resolved Date presentation, breech 03/30/2020 0 04/15/2020 Overview: For C/S 04/21 Vertex on 04/15/20 Insulin controlled gestation al diabetes mellitus (GDM) in third trimester 01/28/20202020 Overview: As of 03/30/20: NPH 51 units with breakfast meal and 28 units at bedtime with snack. Managed by MFM Growth q4 weeks NSTs 2x/week Deliver by KIM/after 39wks Last Assessment & Plan: DISCUSSION: 1. Reviewed etiology and risks associated with Gestational Diabetes Mellitus, including risks to , fetus, and maternal progression to Type 2 DM. RECOMMENDATIONS: 1. Recommend monitoring blood sugars with daily fasting blood sugar (maintained at ? 95) and 1 hour post prandial measurements (maintained at ? 140). Medications should be adjusted to maintain these target values. Report levels to MFM weekly. 2. Has been provided with glucometer and supplies and instructed on proper use. 3. Recommend ergonomics engineer consult. Lifestyle changes are also indicated including weight management and increased physical activity if not otherwise contraindicated in . 4. Advised patient that insulin is the preferred medication that is prescribed for the control of blood sugar levels. Metformin may also be used in some circumstances. Reviewed the risks and benefits of each. 5. Recommend Maternal- Medicine ultrasound for growth in next 2 weeks. If medication is required to control blood sugars, then should have Maternal Medicine ultrasounds for growth every 4 weeks. 6. Recommend surveillance and delivery as follows: - If blood sugars are well-controlled by diet alone, delivery should be accomplished by 41w 0d with twice weekly surveillance after 40w 0d. - If patient requires medications to control blood sugars or if signs of macrosomia/IUGR exist, then recommend twice weekly surveillance starting at 32 weeks and delivery after 39w 0d and accomplished by EDC. - If poor blood sugar control, please refer to [facility] for consideration of earlier delivery. 7. Recommend intrapartum monitoring of blood sugars every 1-2 hours and treatment with insulin (either SC or IV) as indicated. 8. Recommend 2 hour glucose tolerance testing with 75-gram glucose load 6-8 weeks to ensure that her diabetes resolves after delivery. 9. Patient was advised that life-long screening for diabetes and pre-diabetes is recommended every 3 years in women with a history of GDM. COVID-19 affecting , antepartum 12/11/2019 06/17/2020 Overview: + early November, asymptomatic History of delivery of macrosomal 12/11/2019 06/17/2020 Overview: 2nd baby 9#13, shoulder dystocia [facility] guidelines: early GDM screen, growth u/s at 36-37 weeks History of shoulder dystocia in prior 12/11/2019 06/17/2020 Overview: Pt WANTS c/sec Short interval between pregn ancies complicating , antepartum 12/11/201906/17 Overview: Last baby delivered 08/2018 Chronic tension-type headach e, not intractable 05/18/2016 12/11/2019 GBS (group B Streptococcus c adriel), +RV culture, currently 10/28/2013 11/12/2013 Overview: No medication allergies. , normal first 03/21/2013 08/0 08/2013 Overview: FTS done. Offer MSAFP after 15 weeks-negative documented as of this encounter (statuses as of 08/23/2023) Immunizations Name Administration Dates Next Due Seasonal Influenza, PF, 6 M & above, IM , (FluLaval or Fluzone) 03/09/2023,01/08/2018 Seasonal Influenza, Quadriva lent, No Preserve, IM 01/10/2020 TDAP (age 10 and older)(Boostrix) 06/29/2023,,06/07/2018 documented as of this encounter Social History Tobacco Use Types Packs/Day Years Used Date Smoking Tobacco: Never Smokeless Tobacco: Never Alcohol Use Standard Drinks/Week Comments No 0 (1 standard drink = 0.6 oz pur e alcohol) PHQ-2 Answer Date Recorded PHQ-2 Score 0 10/17/2018 Hunger Vital Sign Answer Date Recorded Within the past 12 months, y ou worried that your food would run out before you got the money to buy more. Never true 02/10/20 23 Within the past 12 months, t he food you bought just didn't last and you didn't have money to get more. Never true 02/09/2023 [place] Depression Scale Answer Date Recorded [place] Depression Scale Total 6 06/29/2023 The thought of harming myself has occurred to me . Never 06/29/2023 Estimated Date of Delivery Comme nts Yes 09/16/2023 Based on last me nstrual period of 2022 (Exact Date) Sex and Gender Information Value Date Recorded Sex Assigned at Female 02/09/2023 9:21 AM EDT Gender Identity Female 02/09/2023 9:21 AM EDT Sexual Orientation Straight 02/09/2023 9: 21 AM EDT Job Start Date Occupation Industry Not on file Not on file Not on file documented as of this encounter Progress Notes * Jennifer Aviles CRNP - 08/23/2023 8:29 AM EDT MATERNAL MEDICINE VISIT Patient location: HOME. I was in a hospital or clinic location. After connecting through [employer],patient was verified with two unique identifiers. Patient (or authorized legal phone representative) was then informed that this was a Telemedicine visit and being conducted confidentially over secure lines. Methods to assure confidentiality were taken. Patient acknowledged consent and understanding of pr ivacy and security of the Telemedicine visit. The patient agreed to participate. William Lopez is a 27 year old year old with intrauterine at 36w4d who presents to [facility] for management of diabetes in . CC/HPI: Here for f/u visit. Current issues include: previously elevated fasting Current management: Has not started insulin as ordered (Humulin 15 units with breakfast and 10 units at bedtime). Reports making changes to her diet instead; has seen dramatic improvement in blood sugars. 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 Hypoglycemia episodes:N/A Recent growth scan: [facility] US: 07/23 at 32w2d URMILA: 8.8 cm EFW: 2228 g (79 % Hadlock) Glucose review: She reports her home blood glucose as following: REVIEW OF SYSTEMS: headaches: no nausea/vomiting: denies reports movement: yes abdominal pain/tenderness/cramping/contractions: no vaginal bleeding: no vaginal leaking of fluid: no all other systems negative PHYSICAL EXAM: LMP 2022 (Exact Date) Constitutional: pleasant, well-developed, well nourished General: pleasant, alert and oriented Neuro: mood and affect normal, alert and oriented, no acute distress DISCUSSION: We discussed continuing to test blood sugars 4 times a day (fasting, one hour after breakfast, lunch, and dinner) 2. Briefly reviewed GDM diet recommendations including, avoiding processed suagars, sweetened drinks, white flour. Recommend Counting carbohydrates - Breakfast: 45 grams carbohydrate, Snack: 15-20 grams carbohydrate, Lunch: 45 grams carbohydrate, Afternoon Snack: 15-20 grams carbohydrate, Dinner: 45 grams carbohydrate, bedtime snack 20-30 grams carbohydrate. Advised to have protein with every meal and snack, 70 grams total daily. Advised compliance with Roll Cutting Operator consult. 3. We discussed the sign and symptoms of hypoglycemia (low blood sugar which is <70) and how to respond. If this should happen, we recommend the Rule of 15: 1) Test blood sugar. 2) Eat 15 grams of carbohydrate (choose one) --3 glucose tablets --4-6 oz of juice --8 oz of skim or low-fat milk --6 saltines 3) Wait 15 minutes. 4) Retest blood glucose. 5) If blood glucose less than 80 mg/dl, repeat above steps. 4. We discussed eating a snack to help with sugar control in the fasting timeframe. 5. Encouraged 20-30 minutes a day of exercise (walking, light upper body strength training, yoga, stationary cycling, or swimming) 6. We discussed the predisposing factors for gestational diabetes including ethnic background, family history, maternal body mass index, and use of some medications. We discussed that placental hormones often cause a woman who is not diabetic but has predisposing factors before to exhibitinsulin resistance and gestational diabetes during 7. We discussed the goal of euglycemia in order to create a stable environment for the fetus. She is aware that with diabetes are at increased risk for multiple complications to both mother and fetus 8. I encouraged the patient to reach out to [facility] in the event that she has any questions regarding diabetes management. RECOMMENDATIONS: Management: Continue diet control. Scheduled on 08/[address] Chau for growth scan. Okay to complete growth US with radiology in [place] if preferred as patient would be considered GDMA1 at this time. Follow up for glucose management in 1 week via [facility]. Follow up as needed via telemedicine for ADAPT (Advanced Diabetes And Team). Thank you for allowing us to participate in the care of this patient. Please call with any questions. NEGRITA Early 08/23/2023 8:49 AM documented in this encounter Plan of Treatment Upcoming Encounters Date Type Department Care Team (Late st Contact Info) Description 08/25/2023 8:15 AM EDT Office Visit Gynecology/Obstetrics Kwadwo Mondragon [address] [address] Trinh Abernathy CRNP [address] [id number] Kimberley Mondragon Stress Tests Keisha [address] [address] 08/29/2023 11:15 AM EDT Office Visit Gynecology/Obstetrics [facility] Mondragon [address] [place] [address] Mondragon, Non Stress Tests Keisha [address] [place] [address] 08/29/2023 11:45 AM EDT Office Visit Gynecology/Obstetrics Kwadwo Tollivers [address] [place] [address] Bethel Moeller MD [address] [place] [address] 08/29/2023 3:00 PM EDT Office Visit Vegetable Farming Supervisor OB Maternal Medicine [facility] Stefanie Olson [address] [place] [address] Dr [address] [place] [address] Jairo Chau MD [address] [place] [id number] 08/29/2023 3:00 PM EDT Imaging Maternal Medicine [facility] Stefanie Olson [address] [place] [address] Dr [address] [place] [address] 09/01/2023 10:30 AM EDT Office Visit Gynecology/Obstetrics Kwadwo Mondragon [address] [place] [address] Cheryl Sampson MD [address] [place] [address] [place] [address] Mondragon, Non Stress Tests Keisha [address] [place] [address] 09/05/2023 9:15 AM EDT Office Visit Gynecology/Obstetrics Kwadwo Mondragon [address] [place] [address] Trinh Abernathy CRNP [address] [place] [address] Mondragon, Non Stress Tests Keisha [address] [place] [address] 09/08/2023 10:30 AM EDT Office Visit Gynecology/Obstetrics Kwadwo Mondragon [address] [place] [address] Marielle Mae PA-C [address] [place] [address] Giancarlo, Non Stress Tests Keisha [address] [place] [address] 09/20/2023 1:30 PM EDT Office Visit Gynecology/Obstetrics Kwadwo Mondragon [address] [place] [address] Marielle Mae PA-C [address] [place] [address] Health Maintenance Due Date Last Done Comments Hepatitis B (3 of 3 - 3-dose series) 08/30/1994 07/05/1994, 02/11/1994 Depression Screening 10/18/2019 10/17/2018 COVID-19 Vaccine ( season) 2022 Pap Smear 06/18/2023 06/17/2020, 05/12, 03/23/2016, Additional history exists DTaP,Tdap,and Td Vaccines (4 - Td or Tdap) 06/28/2033 06/29/2023, 02/07/2020, 06/07/2018 GARDASIL-HPV IMMUNIZATION SERIES Completed 08/24/2007, 04/20/2007, 02/28/2007 MENINGOCOCCAL (MENACTRA/MENVEO) Aged Out 05/27/2015 No longer eligible based on patient's age to complete this topic Influenza Vaccine (FLU shot) Completed , 01/10/2020, 01/28/2019, Additional history exists Pneumococcal Vaccine: Pediatrics (0 to 5 Years) and At-Risk Patients (6 to 64 Years) Aged Out No longer eligible based on patient's age to complete this topic documented as of this encounter Medical Devices Not on filedocumented as of this encounter Visit Diagnoses Diagnosis Diet controlled gestational diabetes mellitus (GDM) in third trimester- Primary Supervision of high-risk , third trimester documented in this encounter Care Teams Certified Welding Inspector Relationship Specialty Start Date End Date Maury Boss DO [address] [address] PCP - General Family Medicine 03/21/13 documented as of this encounter
--- OUTSIDE RECORDS SUMMARY | 2023-09-13 13:57 | External Medical Summary | Summary of Care ---
Author Name Unknown Organization [facility] Address [address] [facility] [place] [address] Phone [phone] Care Team Providers Care Refining Still Operator Name Role Phone Maury Boss Primary Care Provider Encounter Details Date Type Department Care Team (Late st Contact Info) Description 08/21/2023 Telephone Gynecology/Obstetrics, [place] [address] [place] [id number] Sidra lCeary CRNP [address] [place] [address] Allergies No known active allergiesdocumented as of this encounter (statuses as of 08/21/2023) Medications Medication Sig Dispensed Refills Start Date End Date Status Vit-Fe Fumarate-FA ( FORMULA) 28-0.8 MG TABS Take by mouth. 0 Active Breast PumpIndications:Carla ast feeding status of mother KIM 09/16/23, Z39.1, double electric pump 1 Each 0 06/29/2023 Active Additional Information Patient not taking.Reported on 07/05/2023 OneTouch Verio Flex System w/Device Kit Use to test blood sugars 4 times daily (fasting, 1 hour after breakfast, lunch, and dinner) 3.21 Each 0 06/29/2023 Active AtritechTouch Verio In Vitro Strip (Glucose Blood) Use to test blood sugars 4 times daily (fasting, 1 hour after breakfast, lunch, and dinner) 425 Each 6 06/29/2023 Active Fingerstix Lancets Check blood sugar four times per day as instructed 642.86 Each 06/29/2023 Active Iron-Vitamin C 65-125 MG Oral Tablet (Vitron C) Take 1 Tablet by mouth in the morning. 90 Tablet 2 07/03/2023 Active Docusate Sodium 100 MG Oral Capsule (Colace) Take 1 Capsule by mouth 3 times a day as needed for Constipation. 60 Capsule 5 07/03/2023 Active Additional Information Patient not taking.Reported on 07/05/2023 HumuLIN N KwikPen 100 UNIT/ML Subcutaneous Suspension Pen-injector (Insulin NPH (Human) (Isophane)) Inject under the skin 15 units with breakfast and 10 units at bedtime 15 mL 2 08/18/2023 Active BD Pen Needle Mini U/F 31G X 5 MM (Insulin Pen Needle) Use with insulin twice daily 100 Each 3 08/18/2023 Active documented as of this encounter (statuses as of 08/21/2023) Active Problems Problem Noted Date Diagnosed Date Insulin controlled gestation al diabetes mellitus (GDM) in third trimester 06/29/2023 [...] and elevated FBS; recommend F/U ADAPT visit ([facility] PARS notified to assist patient with scheduling) [...] breakfast and 10 units at bedtime; needs [facility] growth scan in 1-2 weeks. Message sent to [facility] scheduling. Last Assessment & Plan: She presents for an assessment of growth and anatomy secondary to a recent diagnosis of GDM. She has a history of macrosomia and a shoulder dystocia in her 2nd and delivered via in her 3rd . Per review of [employer] documentation, her blood glucose values have overall [...] Passed 3hr GTT at 13w Supervision of normal 01/08/2018 Chronic tension-type headache, not intractable 1 ADVANCE DIRECTIVE INFORMATION 04/22/2013 Overview: No, Advance Directive brochure offered, patient declined. Estimated Date of Delivery Comme nts Yes 09/16/2023 Based on last me nstrual period of 2022 (Exact Date) documented as of this encounter (statuses as of 08/21/2023) Resolved Problems Problem Noted Date Diagnosed Date [...] and instructed on proper use. 3. Recommend outbound telemarketer consult. Lifestyle changes are also indicated including [...] poor blood sugar control, please refer to [facility] for consideration of earlier delivery. 7. Recommend [...] in women with a history of GDM. High-risk 12/11/2019 06/18/19 21 Overview: A+, rubella immune Planning to breast feed Boy COVID-19 affecting , antepartum 12/11/2019 06/17/2020 Overview: + early November, asymptomatic History of delivery of macrosomal 12/11/2019 06/17/2020 Overview: 2nd baby 9#13, shoulder dystocia [facility] guidelines: early GDM screen, growth u/s at 36-37 weeks History of shoulder dystocia in prior 12/11/2019 06/17/2020 Overview: Pt WANTS c/sec Short interval between pregn ancies complicating , antepartum 12/11/201906/17 Overview: Last baby delivered 08/2018 Chronic tension-type headach e, not intractable 05/18/2016 12/11/2019 GBS (group B Streptococcus c adriel), +RV culture, currently 10/28/2013 11/12/2013 Overview: No medication allergies. , normal first 03/21/2013 08/08/2013 Overview: FTS done. Offer MSAFP after 15 weeks-negative documented as of this encounter (statuses as of 08/21/2023) Immunizations Name Administration Dates Next Due Seasonal [...] money to get more. Never true 02/09/2023 [place] Depression Scale Answer Date Recorded [place] Depression Scale Total 6 06/29/2023 The thought [...] on file documented as of this encounter Miscellaneous Notes * Telephone Encounter - Codi Cadena RN - 08/21/2023 9:59 AM EDT Called patient. Made her aware that she needs to call MFM and discuss her concerns with her insulinsince they manage this , so she can get their advice and recommendations. Advised I would follow upwith our office tomorrow with Madeline as scheduled to discuss if any additional growths need orderedor if she should just do the growths with MFM. Patient states she prefers to stay local and do growth US with us. Advised she needs to ask MFM if that is okay. She will call them and discuss. Just sending as FYI, advise further if needed. * Telephone Encounter - Denise Simpson LPN - 08/21/2023 8:12 AM EDT Pt is calling in stating she had a visit on this past Monday with MFM and was prescribed insulin. States she has not gotten the insulin yet and was really watching what she was eating over the weekend and monitoring her levels and states they were all under 140. Pt is stating she would like to continue to do what she is doing and manage the levels with diet changes as she states she only has 4 weeks to go and would like to hold off on starting insulin as long as she is able too. Pt is also wanting to know if she is too keep the appointment on this coming Monday on 08/23/2023 for a growth but states MFM has her scheduled for 08/29/2023 for a growth US. She would like to keep the appointment locally rather than traveling to [place] if able. Please review and advise. Pt call back [phone] Denise Simpson LPN documented in this encounter Plan of Treatment Upcoming Encounters Date Type Department Care Team (Late st Contact Info) Description 08/22/2023 2:45 PM EDT Office Visit Gynecology/Obstetrics [facility]ad[facility] Mondr[facility] [address] [place] [address] Madeline Nielson PA-C [address] [place] [address] [place] [address] Kimberley Mondragon Stress Tests Kiesha [address] [place] [address] 08/25/2023 8:15 AM EDT Office Visit Gynecology/Obstetrics Kwadwo Mondr[facility] [address] [place] [address] Trinh Abernathy CRNP [address] [place] [address] [place], Non Stress Tests Keisha [address] [place] [address] 08/29/2023 11:15 AM EDT Office Visit Gynecology/Obstetrics [facility] [address] [place] [address] Mondragon, Non Stress Tests Keisha [address] [place] [address] 08/29/2023 11:45 AM EDT Office Visit Gynecology/Obstetrics Kwad[facility] Mondragon [address] [place] [address] Bethel Moeller MD [address] [place] [address] 08/29/2023 3:00 PM EDT Office Visit Job Forwarder OB Maternal Medicine [facility] Stefanie Olson [address] [place] [address] Dr [address] [place] [address] [facility] [address] [place] [address] 08/29/2023 3:00 PM EDT Imaging Maternal Medicine [facility] Stefanie Olson [address] [place] [address] [address] [place] [address] 09/01/2023 10:30 AM EDT Office Visit Gynecology/Obstetrics Kwadwo Mondragon [address] [place] [address] Cheryl Sampson MD [address] [place] [address] [place] [address] Mondragon, Non Stress Tests Keisha [address] [place] [address] 09/05/2023 9:15 AM EDT Office Visit Gynecology/Obstetrics Kwad[facility] Mondragon [address] [place] [address] Trinh Abernathy CRNP [address] [place] [address] Kimberley Mondragon Stress Tests Keisha [address] [place] [address] 09/08/2023 10:30 AM EDT Office Visit Gynecology/Obstetrics [facility] Tollivers [address] [place] [address] Marielle Mae PA-C [address] [place] [address] Kimberley Mondragon Stress Tests Keisha [address] [place] [address] 09/20/2023 1:30 PM EDT Office Visit Gynecology/Obstetrics [facility] Mondragon [address] [place] [address] Marielle Mae PA-C [address] [place] [address] Health Maintenance Due Date Last Done Comments [...] Not on filedocumented as of this encounter Care Teams Refining Still Operator Relationship Specialty Start Date End Date Maury Boss DO [address] [facility] [place] [address] PCP - General Family Medicine 03/21/13 documented as of this encounter
--- OUTSIDE RECORDS SUMMARY | 2023-09-13 13:57 | External Medical Summary | Summary of Care ---
Author Name Unknown Organization [facility] Address [address] [facility] [place] [address] Phone [phone] Care Team Providers Care Survey Superintendent Name Role Phone Maury Boss Primary Care Provider Reason for Visit * Reason Onset Date Comments Appointment 08/18/2023 Encounter Details Date Type Department Care Team (Late st Contact Info) Description 08/18/2023 Telephone Gynecology/Obstetrics [facility] [address] [place] [address] BackerTrinh CRNP [address] [place] [address] Appointment Allergies No known active allergiesdocumented as of this encounter (statuses as of 08/22/2023) Medications Medication Sig Dispensed Refills Start Date [...] and dinner) 3.21 Each 0 06/29/2023 Active OneTouch Verio In Vitro Strip (Glucose [...] as of this encounter (statuses as of 08/22/2023) Active Problems Problem Noted Date Diagnosed Date [...] and elevated FBS; recommend F/U ADAPT visit ([facility] PARS notified to assist patient with scheduling) [...] breakfast and 10 units at bedtime; needs [facility] growth scan in 1-2 weeks. Message sent to [facility] scheduling. 08/21/23: RPM message received; patient declines starting insulin at this time; will recommend follow-up ADAPT visit this week to discuss further Last Assessment & Plan: She presents for an assessment of growth and anatomy secondary to a recent diagnosis of GDM. She has a history of macrosomia and a shoulder dystocia in her 2nd and delivered via in her 3rd . Per review of [employer] documentation, her blood glucose values have overall [...] as of this encounter (statuses as of 08/22/2023) Resolved Problems Problem Noted Date Diagnosed Date Resolved Date presentation, breech 03/30/2020 0 04/15/2020 Overview: For C/S 04/21 Vertex on 04/15/20 Insulin controlled gestation al diabetes mellitus (GDM) in third trimester 01/28/20202020 Overview: As of 03/30/20: NPH 51 units with breakfast meal and 28 units at bedtime with snack. Managed by [facility] Growth q4 weeks NSTs 2x/week Deliver by [...] maintain these target values. Report levels to [facility] weekly. 2. Has been provided with glucometer and supplies and instructed on proper use. 3. Recommend cattle tester consult. Lifestyle changes are also indicated including [...] poor blood sugar control, please refer to M for consideration of earlier delivery. 7. Recommend [...] 06/17/2020 Overview: 2nd baby 9#13, shoulder dystocia [facility] guidelines: early GDM screen, growth u/s [...] as of this encounter (statuses as of 08/22/2023) Immunizations Name Administration Dates Next Due Seasonal [...] money to get more. Never true 02/09/2023 [place] Depression Scale Answer Date Recorded [place] Depression Scale Total 6 06/29/2023 The thought [...] encounter Miscellaneous Notes * Telephone Encounter - Evelyne Guardado OSA - 08/18/2023 3:34 PM EDT Made appts for patient and she called. She will review and call back about which ones work for her. * Telephone Encounter - JonelerTrinh CRNP - 08/18/2023 1:34 PM EDT Pt recently started on insulin for GDM - needs to start twice weekly NSTs starting the week of 08/20. Please assist in scheduling these, thanks! NEGRITA Quintero documented in this encounter Plan of Treatment Upcoming Encounters Date Type Department Care Team ([facility] st Contact Info) Description 08/22/2023 2:45 PM EDT Office Visit Gynecology/Obstetrics Kwadwo Tollivers [address] [place] [address] Madeline Nielson PA-C [address] [facility] [place] [id number] Mondragon, Non Stress Tests Keisha [address] [place] [address] 08/23/2023 8:30 AM EDT Telemedicine Director Perioperative Obstetric [facility] [address] [place] [address] Jennifer Aviles CRNP [address] [place] [address] 08/25/2023 8:15 AM EDT Office Visit Gynecology/Obstetrics Kwadwo Tollivers [address] [place] [address] Trinh Abernathy CRNP [address] [place] [address] Mondragon, Non Stress Tests Keisha [address] [place] [address] 08/29/2023 11:15 AM EDT Office Visit Gynecology/Obstetrics [facility] [address] [place] [address] Mondragon, Non Stress Tests Keisha [address] [place] [address] 08/29/2023 11:45 AM EDT Office Visit Gynecology/Obstetrics [facility] [address] [place] [address] Bethel Moeller MD [address] [place] [address] 08/29/2023 3:00 PM EDT Office Visit Director Perioperative OB Maternal Medicine [facility] Stefanie Olson [address] [place] [address] Dr [address] [place] [address] Jairo Chau MD [facility] [place] [address] 08/29/2023 3:00 PM EDT Imaging Maternal Medicine [facility] Stefanie Olson [address] [place] [address] Dr [address] [place] [address] 09/01/2023 10:30 AM EDT Office Visit Gynecology/Obstetrics Kwadwo Mondragon [address] [place] [address] Cheryl Sampson MD [address] [place] [address] [place] [address] Kimberley Mondragon Stress Tests Keisha [address] [place] [address] 09/05/2023 9:15 AM EDT Office Visit Gynecology/Obstetrics [facility] Tollivers [address] [place] [address] Trinh Abernathy CRNP [address] [place] [address] Giancarlo Non Stress Tests Keisha [address] [place] [address] 09/08/2023 10:30 AM EDT Office Visit Gynecology/Obstetrics Kwadwo Tollivers [address] [place] [address] Marielle Mae PA-C [address] [place] [address] Giancarlo Kimberley Stress Tests Keisha [address] [place] [address] 09/20/2023 1:30 PM EDT Office Visit Gynecology/Obstetrics Kwadwo Mondragon [address] [place] [address] Marielle Mae PA-C [address] [place] [address] Health Maintenance Due Date Last Done Comments [...] filedocumented as of this encounter Care Teams Survey Superintendent Relationship Specialty Start Date End Date Maury Boss DO [address] [facility] [place] [address] PCP - General Family Medicine 03/21/13 documented as of this encounter
--- OUTSIDE RECORDS SUMMARY | 2023-09-13 13:57 | External Medical Summary | Summary of Care ---
Author Name Unknown Organization [facility] Address [address] [facility] [place] [address] Phone [phone] Care Team Providers Care Removable Prosthodontist Name Role Phone Maury Boss Primary Care Provider Reason for Visit * Reason Comments Return Visit 37w4d Encounter Details Date Type Department Care Team (Late st Contact Info) Description 08/30/2023 3:00 PM EDT Office Visit Gynecology/Obstetric s Kwadwo Mondragon [address] [place] [address] Sidra Cleary CRNP [address] [place] [address] Encounter for supervision of other normal in third trimester*; H/O section; History of gestational diabetes in prior , currently ; History of shoulder dystocia in prior , currently ; Diet controlled gestational diabetes mellitus (GDM) in third trimester Allergies No known active allergiesdocumented as of this encounter (statuses as of 08/30/2023) Medications Medication Sig Dispensed Refills Start Date End Date Status Vit-Fe Fumarate-FA ( FORMULA) 28-0.8 MG TABS Take by mouth. Active Breast PumpIndications:Br east feeding status of mother KIM 09/16/23, Z39.1, double electric pump 1 Each 06/29/2023 Active Additional Information Patient not taking.Reported on 07/05/2023 OneTouch Verio Flex System w/Device Kit Use to test blood sugars 4 times daily (fasting, 1 hour after breakfast, lunch, and dinner) 3.21 Each 06/29/2023 Active OneTouch Verio In Vitro Strip (Glucose Blood) Use to test blood sugars 4 times daily (fasting, 1 hour after breakfast, lunch, and dinner) 425 Each 06/29/2023 Active Fingerstix Lancets Check blood sugar [...] Additional Information Patient not taking.Reported on 07/05/2023 documented as of this encounter (statuses as of 08/30/2023) Active Problems Problem Noted Date Diagnosed Date [...] and elevated FBS; recommend F/U ADAPT visit ([facility] PARS notified to assist patient with scheduling) [...] breakfast and 10 units at bedtime; needs [facility] growth scan in 1-2 weeks. Message sent to [facility] scheduling. 08/21/23: RPM message received; patient declines starting insulin at this time; will recommend follow-up ADAPT visit this week to discuss further 08/23/23: ADAPT follow-up complete. Blood sugars have improved since last week; virtually all fasting and postprandial values WNL with dietary changes. Continue diet control for now. 08/30/20234710-[id number] 3 days in the past week (values within normal limits). Messaged to test four times daily and report. Last Assessment & Plan: She presents for an assessment of growth and anatomy secondary to a recent diagnosis of GDM. She has a history of macrosomia and a shoulder dystocia in her 2nd and delivered via in her 3rd . Per review of [employer] documentation, her blood glucose values have overall [...] as of this encounter (statuses as of 08/30/2023) Resolved Problems Problem Noted Date Diagnosed Date [...] and instructed on proper use. 3. Recommend desizing machine offbearer consult. Lifestyle changes are also indicated including [...] poor blood sugar control, please refer to [facility] for consideration of earlier delivery. 7. Recommend [...] 06/17/2020 Overview: 2nd baby 9#13, shoulder dystocia [facility] guidelines: early GDM screen, growth u/s at 36-37 weeks History of shoulder dystocia in prior 12/11/2019 06/17/2020 Overview: Pt WANTS c/sec Short interval between pregn ancies complicating , antepartum 12/11/201906/17 Overview: Last baby delivered 08/2018 Chronic tension-type headach e, not intractable 05/18/2016 12/11/2019 GBS (group B Streptococcus c adriel), +RV culture, currently 10/28/2013 11/12/2013 Overview: No medication allergies. , normal first 03/21/201308/2013 Overview: FTS done. Offer MSAFP after 15 weeks-negative documented as of this encounter (statuses as of 08/30/2023) Immunizations Name Administration Dates Next Due Seasonal Influenza, PF, 6 M & above, IM , (FluLaval or Fluzone) 03/09/2023,01/08/2018 Seasonal Influenza, Quadriva lent, No Preserve, IM 01/10/2020 TDAP (age 10 and older)(Boostrix) 06/29/2023,,06/07/2018 documented as of this encounter Social History Tobacco Use Types Packs/Day Years Used Date Smoking Tobacco: Never Smokeless Tobacco: Never Tobacco Cessation:Counseling Given: Not Answered Alcohol Use Standard Drinks/Week Comments No 0 [...] money to get more. Never true 02/09/2023 [place] Depression Scale Answer Date Recorded [place] Depression Scale Total 6 06/29/2023 The thought [...] on file documented as of this encounter Last Filed Vital Signs Vital Sign Reading Time Taken Comments Blood Pressure 120/78 08/30/2023 2:29 PM EDT Pulse - - Temperature - - Respiratory Rate - - Oxygen Saturation - - Inhaled Oxygen Concentration - - Weight 91.8 kg (202 lb 6.4 oz) 08/30/2023 2:29 P M EDT Height 165.1 cm (5' 5") 08/30/2023 2:29 PM EDT Body Mass Index 33.68 08/30/2023 2:29 PM EDT documented in this encounter Progress Notes * Sidra Cleary CRNP - 08/30/2023 2:36 PM EDT 37w4d No concerns. Baby is active. No contractions, bleeding, LOF. GDM, not on insulin. She states that her blood sugar readings are good and is sending them to ADAPTteam as directed. Growth u/s today, 60th percentile, URMILA 18.4cm. NEGRITA Parson documented in this encounter Nursing Notes * Denise Simpson LPN - 08/30/2023 2:31 PM EDT Chief Complaint Patient presents with Return Visit 37w4d Pt is with no concerns. US done today. Denise Simpson LPN documented in this encounter Plan of Treatment Upcoming Encounters Date Type Department Care Team (Late st Contact Info) Description 09/06/2023 7:45 AM EDT [facility] [address] [place] [address] Marielle Mae PA-C [address] [place] [address] 09/20/2023 1:30 PM EDT Office [facility] [address] [place] [address] Marielle Mae PA-C [address] [place] [address] Health Maintenance Due Date Last Done Comments Hepatitis B (3 of 3 - 3-dose series) 08/30/1994 07/05/1994, 02/11/1994 Depression Screening 10/18/2019 10/17/2018 COVID-19 Vaccine (1 - 2023-24 season) 2022 Pap Smear 06/18/2023 06/17/2020, 05/12, [...] as of this encounter Visit Diagnoses Diagnosis Encounter for supervision of other normal in third trimester- Primary H/O section Other postprocedural status History of gestational diabetes in prior , currently with other poor obstetric history History of shoulder dystocia in prior , currently with other poor obstetric history Diet controlled gestational diabetes mellitus (GDM) in third trimester documented in this encounter Care Teams Removable Prosthodontist Relationship Specialty Start Date End Date Maury Boss DO [address] [facility] [place] [address] PCP - General Family Medicine 03/21/13 documented as of this encounter
--- OUTSIDE RECORDS SUMMARY | 2023-09-13 13:57 | External Medical Summary | Summary of Care ---
Author Name Unknown Organization [facility] Address [address] [facility] [place] [address] Phone [phone] Care Team Providers Care Aerial Photographer Name Role Phone EliudMaury hill Primary Care Provider Reason for Visit * Reason Comments Return Visit Encounter Details Date Type Department Care Team (Late st Contact Info) Description 09/06/2023 7:45 AM EDT Office Visit Gynecology/Obstetric s [facility] [address] [place] [address] Marielle Mae PA-C [address] [place] [address] Encounter for supervision of other normal in third trimester*; H/O section; History of gestational diabetes in prior , currently ; History of shoulder dystocia in prior , currently ; Diet controlled gestational diabetes mellitus (GDM) in third trimester Allergies No known active allergiesdocumented as of this encounter (statuses as of 09/06/2023) Medications Medication Sig Dispensed Refills Start Date [...] as of this encounter (statuses as of 09/06/2023) Active Problems Problem Noted Date Diagnosed Date [...] elevated FBS; recommend F/U ADAPT visit ([facility] PARS notified to assist patient with scheduling) [...] and 10 units at bedtime; needs [facility] growth scan in 1-2 weeks. Message sent to [facility] scheduling. 08/21/23: RPM message received; patient declines starting insulin at this time; will recommend follow-up ADAPT visit this week to discuss further 08/23/23: ADAPT follow-up complete. Blood sugars have improved since last week; virtually all fasting and postprandial values WNL with dietary changes. Continue diet control for now. 08/30/20234812-[id number] 3 days in the past week (values within normal limits). Messaged to test four times daily and report. 09/05/23: RPM reviewed; Some missed readings but the ones reported are within target. Last Assessment & Plan: She presents for an assessment of growth and anatomy secondary to a recent diagnosis of GDM. She has a history of macrosomia and a shoulder dystocia in her 2nd and delivered via in her 3rd . Per review of STEREOTYPER APPRENTICE documentation, her blood glucose values have overall [...] as of this encounter (statuses as of 09/06/2023) Resolved Problems Problem Noted Date Diagnosed Date [...] and instructed on proper use. 3. Recommend hand tufter consult. Lifestyle changes are also indicated including [...] poor blood sugar control, please refer to [facility] for consideration of earlier delivery. 7. Recommend [...] Overview: 2nd baby 9#13, shoulder dystocia [facility] guidelines: early GDM screen, growth u/s at 36-37 weeks History of shoulder dystocia in prior 12/11/2019 06/17/2020 Overview: Pt WANTS c/sec Short interval between pregn ancies complicating , antepartum 12/11/201906/17 Overview: Last baby delivered 08/2018 Chronic tension-type headach e, not intractable 05/18/2016 12/11/2019 GBS (group B Streptococcus c adriel), +RV culture, currently 10/28/2013 11/12/2013 Overview: No medication allergies. , normal first 03/21/20130 08/2013 Overview: FTS done. Offer MSAFP after 15 weeks-negative documented as of this encounter (statuses as of 09/06/2023) Immunizations Name Administration Dates Next Due Seasonal [...] money to get more. Never true 02/09/2023 [place] Depression Scale Answer Date Recorded [place] Depression Scale Total 6 06/29/2023 The thought [...] Sign Reading Time Taken Comments Blood Pressure 118/64 09/06/2023 7:47 AM EDT Pulse - - Temperature - - Respiratory Rate - - Oxygen Saturation - - Inhaled Oxygen Concentration - - Weight 91.8 kg (202 lb 4.8 oz) 09/06/2023 7:47 A M EDT Height 165.1 cm (5' 5") 09/06/2023 7:47 AM EDT Body Mass Index 33.66 09/06/2023 7:47 AM EDT documented in this encounter Progress Notes * Marielle Mae PA-C - 09/06/2023 7:55 AM EDT 38w4d No concerns. Denies LOF, VB, contractions. Pos fm. Repeat c/s with bilateral tubal scheduled 09/13/2023. GDM continues to be diet controlled, doing well. Labor precautions. Marielle Mae PA-C documented in this encounter Nursing Notes * Codi Cadena RN - 09/06/2023 7:48 AM EDT Patient here for DIANA visit 38w4d No concerns +FM Codi Cadena RN documented in this encounter Plan of Treatment Upcoming Encounters Date Type Department Care Team (Late st Contact Info) Description 09/20/2023 1:30 PM EDT Office Visit Gynecology/Obstetrics [facility] [address] [place] [address] Marielle Mae PA-C [address] [place] [address] Health Maintenance Due Date Last Done Comments [...] trimester documented in this encounter Care Teams Aerial Photographer Relationship Specialty Start Date End Date Maury Boss DO [address] [place] [address] PCP - General Family Medicine 03/21/13 documented as of this encounter
--- OUTSIDE RECORDS SUMMARY | 2023-09-13 13:57 | External Medical Summary | Summary of Care ---
Author Name Unknown Organization [facility] Address [address] [facility] [place] [address] Phone [phone] Care Team Providers Care Core Maker Helper Name Role Phone Mauyr Boss Primary Care Provider Reason for Visit * Reason Comments Non Stress Test Encounter Details Date Type Department Care Team (Late st Contact Info) Description 08/22/2023 2:45 PM EDT Office Visit Gynecology/Obstetric s [facility] [address] [place] [address] Madeline Nielson PA-C [address] [facility] [place] [address] [place]carlo Non Stress Tests Keisha [address] [place] [address] Encounter for supervision of other normal in third trimester*; Insulin controlled gestational diabetes mellitus (GDM) in third trimester; History of shoulder dystocia in prior , currently ; H/O section Allergies No known active allergiesdocumented as of [...] breakfast and 10 units at bedtime; needs [facility]FM growth scan in 1-2 weeks. Message sent to [facility] scheduling. 08/21/23: RPM message received; patient [...] in her 3rd . Per review of WOOD TILE INSTALLER documentation, her blood glucose values have overall [...] and instructed on proper use. 3. Recommend sport intern consult. Lifestyle changes are also indicated including [...] poor blood sugar control, please refer to [facility] for consideration of earlier delivery. 7. [...] 06/17/2020 Overview: 2nd baby 9#13, shoulder dystocia [facility] guidelines: early GDM screen, growth u/s [...] money to get more. Never true 02/09/2023 [place] Depression Scale Answer Date Recorded [place] Depression Scale Total 6 06/29/2023 The thought [...] Sign Reading Time Taken Comments Blood Pressure - - Pulse - - Temperature - - Respiratory Rate - - Oxygen Saturation - - Inhaled Oxygen Concentration - - Weight - - Height 165.1 cm (5' 5") 08/22/2023 2:52 PM EDT Body Mass Index - - documented in this encounter Progress Notes * Madeline Nielson PA-C - 08/22/2023 3:10 PM EDT William Lopez is a 27 year old female here for her routine OB appointment at 36w3d Her Estimated Date of Delivery: 09/16/23 She has no concerns at this time. Reports feeling really great. She does have questions regarding MFM's recent recommendation for Insulin management of her GDM. She states she has not yet started theInsulin. She was monitoring her diet, and checking sugars over the weekend, and reports they were all WNL. She is questioning why she needs to see MFM and take Insulin this late in her . Shereports the frequent appointments and the commute to [place] are a lot, especially as she is stillworking and planning to until delivery. She does have another appointment scheduled with MFM tomorrow, and plans to discuss this with them then. Otherwise, no concerns. She has her ERCS scheduled 09/12. REVIEW OF SYSTEMS She affirms movement. Denies vaginal bleeding, LOF, contractions, N/V, headaches, vision changes, chest pain, deep calf pain/swelling, RUQ pain. PHYSICAL EXAM Filed Vitals: 08/22/23 1452 Height: 1.651 m (5' 5") Fundal Height: 37 cm ASSESSMENT assessment with Non-stress Test completed on 08/22/2023 at 36w3d weeks gestation for indication of insulin controlled gestational diabetes mellitus heart baseline: 120 bpm Variability: Moderate Decelerations: absent Accelerations: present Contractions: None NST start time: 1454 NST stop time: 1523 NST strip reviewed, interpreted, and approved by OB provider, Madeline Nielson PA-C. NST strip stored in clinic storage file GBS swab collected. Amr Physician Documentation Patient offered manager athletics and accepted. Name of manager athletics: Nicole Reyes LPN. ASSESSMENT/PLAN Encounter for supervision of other normal in third trimester (Primary) - GROUP B STREP CULTURE/PCR Insulin controlled gestational diabetes mellitus (GDM) in third trimester - Discussed MFM recommendation for Insulin management for her GDM. Discussed risks of uncontrolled blood sugar levels in . Encouraged patient to express concerns at her MFM appointment tomorrow, and reach out with their recommendations. - Patient aware of recommendation for 2x weekly NSTs, if she is an insulin controlled GDM patient. She is agreeable. - Discussed recommendation for growth scans with MFM versus with OBGYN radiology department, as MFMis an elevated service and imaging is preferred through them for high risk pregnancies. History of shoulder dystocia in prior , currently H/O section - ERCS scheduled 6/ Supervision of - GBS swab collected today - labor precautions and kick counts reviewed RTO for scheduled DIANA/NST/ MFM appointments as scheduled. Madeline Nielson PA-C 08/22/2023 documented in this encounter Nursing Notes * Nicole Brice LPN - 08/22/2023 2:53 PM EDT 36w3d NST documented in this encounter Plan of Treatment Upcoming Encounters Date Type Department Care Team (Late st Contact Info) Description 08/23/2023 8:30 AM EDT Telemedicine Hot Strip Finisher Obstetric M [facility] [address] [place] [address] Jennifer Aviles CRNP [address] [place] [address] 08/25/2023 8:15 AM EDT Office Visit Gynecology/Obstetrics [facility] [address] [facility] [place] [address] Trinh Abernathy CRNP [address] [place] [address] Kimberley Mondragon Stress Tests Keisha [address] [place] [address] 08/29/2023 11:15 AM EDT Office Visit Gynecology/Obstetrics [facility] [address] [place] [address] Mondr[place], Non Stress Tests Keisha [address] [place] [address] 08/29/2023 11:45 AM EDT Office Visit Gynecology/Obstetrics [facility] [address] [place] [address] Bethel Moeller MD [address] [place] [address] 08/29/2023 3:00 PM EDT Office Visit Hot Strip Finisher OB Maternal Medicine [facility] Stefanie Olson [address] [place] [address] Dr [address] [place] [address] Jairo Chau MD [address] [place] [address] 08/29/2023 3:00 PM EDT Imaging Maternal Medicine [facility] Stefanie Olson [address] [place] [address] Dr [address] [place] [address] 09/01/2023 10:30 AM EDT Office Visit Gynecology/Obstetrics [facility] [address] [place] [address] Cheryl Sampson MD [address] [place] [address] [place] [address] Giancarlo, Non Stress Tests Keisha [address] [place] [address] 09/05/2023 9:15 AM EDT Office Visit Gynecology/Obstetrics [facility] [address] [place] [address] Trinh Abernathy CRNP [address] [place] [address] Giancarlo, Non Stress Tests Keisha [address] [place] [address] 09/08/2023 10:30 AM EDT Office Visit Gynecology/Obstetrics [facility] [address] [place] [address] Marielle Mae PA-C [address] [place] [address] Mondragon, Non Stress Tests Keisha [address] [place] [address] 09/20/2023 1:30 PM EDT Office Visit Gynecology/Obstetrics [facility] [address] [place] [address] Marielle Mae PA-C [address] [place] [address] Pending Results Name Type Priority Associated Diagnoses Date /Time GROUP B STREP CULTURE/PCR Lab Routine Encounter for supervision of other normal in third trimester 08/22/2023 4:15 PM EDT Health Maintenance Due Date Last Done Comments [...] of other normal in third trimester- Primary Insulin controlled gestational diabetes mellitus (GDM) in third trimester History of shoulder dystocia in prior , currently with other poor obstetric history H/O section Other postprocedural status documented in this encounter Care Teams Core Maker Helper Relationship Specialty Start Date End Date Maury Boss DO [address] [place] [address] PCP - General Family Medicine 03/21/13 documented as of this encounter
--- OUTSIDE RECORDS SUMMARY | 2023-09-13 13:57 | External Medical Summary | Summary of Care ---
Author Name Unknown Organization [facility] Address [address] [place] [address] Phone [phone] Care Team Providers Care Mail Clerks Supervisor Name Role Phone Maury Boss Primary Care Provider Reason for Visit * Reason Comments Follow Up Gestational diabetes management Encounter Details Date Type Department Care Team (Late st Contact Info) Description 08/18/2023 1:00 PM EDT Telemedicine Him Assistant Obstetrics Maternal Medicine, [place] [address] [facility] [address] [place] [address] Yue Padron, PAN DEVULCANIZER HELPER [address] [facility] [address] [place] [address] Insulin controlled gestational diabetes mellitus (GDM) in third trimester*; Supervision of high risk , antepartum, third trimester; 35 weeks gestation of Allergies No known active allergiesdocumented as of this encounter (statuses as of 08/18/2023) Medications Medication Sig Dispensed Refills Start Date End Date Status Vit-Fe Fumarate-FA ( FORMULA) 28-0.8 MG TABS Take by mouth. 0 Active Breast PumpIndications:Carla ast feeding status of mother KIM 09/16/23, Z39.1, double electric pump 1 Each 0 06/29/2023 Active Additional Information Patient not taking.Reported on 07/05/2023 [employer] Flex System w/Device Kit Use to test [...] per day as instructed 642.86 Each 6 06/29/2023 Active Iron-Vitamin C 65-125 MG Oral [...] as of this encounter (statuses as of 08/18/2023) Active Problems Problem Noted Date Diagnosed Date [...] scan in 1-2 weeks. Message sent to [facility] scheduling. Last Assessment & Plan: She presents for an assessment of growth and anatomy secondary to a recent diagnosis of GDM. She has a history of macrosomia and a shoulder dystocia in her 2nd and delivered via in her 3rd . Per review of PAN DEVULCANIZER HELPER documentation, her blood glucose values have overall [...] as of this encounter (statuses as of 08/18/2023) Resolved Problems Problem Noted Date Diagnosed Date Resolved Date presentation, breech 03/30/2020 0 04/15/2020 Overview: For C/S 04/21 Vertex on 04/15/20 Insulin controlled gestation al diabetes mellitus (GDM) in third trimester 01/28/20202020 Overview: As of 03/30/20: NPH 51 units with breakfast meal and 28 units at bedtime with snack. Managed by [facility] Growth q4 weeks NSTs 2x/week Deliver [...] maintain these target values. Report levels to [facility] weekly. 2. Has been provided with glucometer and supplies and instructed on proper use. 3. Recommend integrity manager consult. Lifestyle changes are also indicated including [...] 06/17/2020 Overview: 2nd baby 9#13, shoulder dystocia [facility] guidelines: early GDM screen, growth u/s [...] as of this encounter (statuses as of 08/18/2023) Immunizations Name Administration Dates Next Due Seasonal [...] money to get more. Never true 02/09/2023 [place] Depression Scale Answer Date Recorded [place] Depression Scale Total 6 06/29/2023 The thought [...] as of this encounter Progress Notes * Yue Padron CRNP - 08/18/2023 12:56 PM EDT Images from the original note were not included. MATERNAL MEDICINE VISIT Patient location: HOME. I was in a hospital or clinic location. After connecting through televideo,patient was verified with two unique identifiers. Patient (or authorized legal wine sales representative) was then informed that this was a Telemedicine visit and being conducted confidentially over secure lines. Methods to assure confidentiality were taken. Patient acknowledged consent and understanding of pr ivacy and security of the Telemedicine visit. The patient agreed to participate. William Tucker is a 27 year old year old with intrauterine at 35w6d who presents to [facility] for management of diabetes in . CC/HPI: Here for f/u visit. Current issues include: some elevated fasting and PP value Current management: diet controlled Diet: gestational diabetes diet Exercise: walking at work Hypoglycemia episodes:N/A Recent growth scan: [facility] US: 07/24/23 at 32w2d URMILA: 8.8 cm EFW: 2228 [...] alert and oriented, no acute distress DISCUSSION: -We discussed continuing to test blood sugars 4 times a day (fasting, one hour after breakfast, lunch, and dinner) -Briefly reviewed GDM diet recommendations including, avoiding processed suagars, sweetened drinks,white flour. Advised compliance with Rejoiner consult. -We discussed the sign and symptoms of hypoglycemia [...] less than 80 mg/dl, repeat above steps. -We discussed eating a snack to help with sugar control in the fasting timeframe. -Encouraged 20-30 minutes a day of exercise (walking, light upper body strength training, yoga, stationary cycling, or swimming) -We discussed the goal of euglycemia in order to create a stable environment for the fetus. She is aware that with diabetes are at increased risk for multiple complications to both mother and fetus -I encouraged the patient to reach out to [facility] in the event that she has any questions regarding diabetes management. -Reviewed insulin administration instruction. I advised her on appropriate technique for administration and she verbalized understanding. RECOMMENDATIONS: Management: ordered Humulin N 15 units with breakfast and 10 units at bedtime Recommend MFM growth scan in 1-2 weeks. Message sent to MFM scheduling team. Recommend twice weekly NSTs for A2GDM Recommend delivery during the 39th week of by EDC for A2GDM. scheduled for 09/13/23 Follow up for glucose management in 1 week via [email or web address] Thank you for allowing us to participate in the care of this patient. Please call with any questions. NEGRITA Burger 08/18/2023 1:25 PM documented in this encounter Plan of Treatment Upcoming Encounters Date Type Department Care Team (Late st Contact Info) Description 08/23/2023 3:00 PM EDT Imaging Radiology [facility] [address] [facility] [place] [address] 08/23/2023 4:00 PM EDT Office Visit Gynecology/Obstetrics [facility] [address] [facility] [place] [address] Ashlee Sewell CNM [address] [place] [address] 08/30/2023 4:15 PM EDT Office Visit Gynecology/Obstetrics [facility] [address] [facility] [place] [address] Bethel Moeller MD [address] [place] [address] 09/07/2023 2:30 PM EDT Office Visit [facility]necology[facility]s [facility] [place] [address] Madeline Nielson PA-C [address] [place] [address] 09/20/2023 1:30 PM EDT Office Visit Gynecology/Obstetrics [facility] [address] [place] [address] Marielle Mae PA-C [address] [place] [address] Health Maintenance Due Date Last Done Comments [...] as of this encounter Visit Diagnoses Diagnosis Insulin controlled gestational diabetes mellitus (GDM) in third trimester- Primary Supervision of high risk , antepartum, third trimester 35 weeks gestation of state, incidental documented in this encounter Care Teams Mail Clerks Supervisor Relationship Specialty Start Date End Date Maury Boss DO [address] [facility] [place] [address] PCP - General Family Medicine 03/21/13 documented as of this encounter
--- OUTSIDE RECORDS SUMMARY | 2023-09-13 13:57 | External Medical Summary ---
Author Name Unknown Address Unknown Organization K01:[facility] - [facility] [address] [facility] [address] Laboratory Report Ordering Provider Test Date Status JULIOISAAC 08/22/2023 16:15:15 Final Observation Date Value Abnormality Reference (Units ) Status Streptococcus agalactiae DNA [Presence] in Specimen by ANASTACIO with probe detection 08/22/2023 16:15:15 Negative Negative Final No Group B Streptococcus det ected by culture-enhanced PCR (amplified probe).
The collection of vaginal/rectal swab specimen combinations (FDA approved specimen type) is optimal for the detection of Group B Streptococcus. Single source collection (vaginal only or rectal only) or alternate specimen sources may lead to false negative results. Performing Location LABORATORY [facility] - [address] [facility] [place]. [facility] [address]
--- OUTSIDE RECORDS SUMMARY | 2023-09-13 13:58 | External Medical Summary | Summary of Care ---
Author Name Unknown Organization [facility] Address [address] [facility] [place] [address] Phone [phone] Care Team Providers Care Manager Of Care Name Role Phone Maury Boss Primary Care Provider Reason for Visit * Reason Comments Return Visit Encounter Details Date Type Department Care Team (Late st Contact Info) Description 08/11/2023 2:30 PM EDT Office Visit Gynecology/Obstetric s [facility]nere[facility] Mondragon [address] [place] [address] Sidra Cleary CRNP [address] [place] [address] Encounter for supervision of other normal in third trimester*; H/O section; History of gestational diabetes in prior , currently ; History of shoulder dystocia in prior , currently ; Diet controlled gestational diabetes mellitus (GDM) in third trimester; Uterine size date discrepancy ; Other specified related conditions, third trimester Allergies No known active allergiesdocumented as of this encounter (statuses as of 08/11/2023) Medications Medication Sig Dispensed Refills Start Date End Date Status Vit-Fe Fumarate-FA ( FORMULA) 28-0.8 MG TABS Take by mouth. 0 Active Breast PumpIndications:Br east feeding status of [...] the morning. 90 Tablet 2 07/03/2023 Active Additional Information Patient not taking.Reported on 07/10/2023 Docusate Sodium 100 MG Oral Capsule (Colace) Take 1 Capsule by mouth 3 times a day as needed for Constipation. 60 Capsule 5 07/03/2023 Active Additional Information Patient not taking.Reported on 07/05/2023 documented as of this encounter (statuses as of 08/11/2023) Active Problems Problem Noted Date Diagnosed Date GDM (gestational diabetes mellitus) 06/29/2023 Overview: Diagnosed at 28 weeks Patient [...] and elevated FBS; recommend F/U ADAPT visit (M PARS notified to assist patient with scheduling) 08/08/23: RPM reviewed; missing values and elevated after-breakfast values; will again recommend F/U ADAPT visit and will provide patient with phone # to schedule as well Last Assessment & Plan: She presents for an assessment of growth and anatomy secondary to a recent diagnosis of GDM. She has a history of macrosomia and a shoulder dystocia in her 2nd and delivered via in her 3rd . Per review of SOFTWARE PUBLISHER documentation, her blood glucose values have overall [...] as of this encounter (statuses as of 08/11/2023) Resolved Problems Problem Noted Date Diagnosed Date Resolved Date presentation, breech 03/30/2020 0 04/15/2020 Overview: For C/S / Vertex on 04/15/20 Insulin controlled gestation al diabetes mellitus (GDM) in third trimester 01/28/20202020 Overview: As of 03/30/20: NPH 51 units with breakfast meal and 28 units at bedtime with snack. Managed by [facility] Growth q4 weeks NSTs 2x/week Deliver [...] maintain these target values. Report levels to [facility] weekly. 2. Has been provided with glucometer and supplies and instructed on proper use. 3. Recommend fuel technician consult. Lifestyle changes are also indicated including [...] poor blood sugar control, please refer to [facility] for consideration of earlier delivery. 7. [...] November, asymptomatic History of delivery of macrosomal infant 12/11/2019 06/17/2020 Overview: 2nd baby 9#13, shoulder dystocia [facility] guidelines: early GDM screen, growth u/s at 36-37 weeks History of shoulder dystocia in prior 12/11/2019 06/17/2020 Overview: Pt WANTS c/sec Short interval between pregn ancies complicating , antepartum 12/11/201906/17 Overview: Last baby delivered 08/2018 Chronic tension-type headach e, not intractable 05/18/2016 12/11/2019 GBS (group B Streptococcus c arrier), +RV culture, currently 10/28/2013 11/12/2013 Overview: No medication allergies. , normal first 03/21/2013 08/0 08/2013 Overview: FTS done. Offer MSAFP after 15 weeks-negative documented as of this encounter (statuses as of 08/11/2023) Immunizations Name Administration Dates Next Due Seasonal [...] money to get more. Never true 02/09/2023 [place] Depression Scale Answer Date Recorded [place] Depression Scale Total 6 06/29/2023 The thought [...] Sign Reading Time Taken Comments Blood Pressure 108/62 08/11/2023 2:29 PM EDT Pulse - - Temperature - - Respiratory Rate - - Oxygen Saturation - - Inhaled Oxygen Concentration - - Weight 89.8 kg (198 lb) 08/11/2023 2:29 PM EDT Height 165.1 cm (5' 5") 08/11/2023 2:29 PM EDT Body Mass Index 32.95 08/11/2023 2:29 PM EDT documented in this encounter Progress Notes * Sidra Cleary CRNP - 08/11/2023 2:49 PM EDT 34w6d Following with ADAPT for GDM. States her fasting numbers are high, and she is surprised she has notbeen recommended yet to start on insulin. Advised to continue to follow with ADAPT, and send blood sugars as directed. Still needs c/s scheduled, message sent to flight crew scheduler. Baby is active. No contractions, bleeding, LOF. Size>dates. Growth u/s with next visit. NEGRITA Parson documented in this encounter Nursing Notes * Nicole Brice LPN - 08/11/2023 2:39 PM EDT 34w6d Denies concerns Given labor instructions Sent staff message to monroe to reach out next week about scheduling csection documented in this encounter Plan of Treatment Upcoming Encounters Date Type Department Care Team (Late st Contact Info) Description 08/23/2023 3:00 PM EDT Imaging Radiology [facility] [address] [place] [address] 08/23/2023 4:00 PM EDT Office Visit Gynecology/Obstetrics [facility] [address] [place] [address] Ashlee Sewell CNM [address] [place] [address] 08/30/2023 4:30 PM EDT Office Visit Gynecology/Obstetrics [facility] [address] [place] [address] Marielle Mae PA-C [address] [place] [address] 09/07/2023 2:30 PM EDT Office Visit Gynecology/Obstetrics [facility] [address] [place] [address] Madeline Nielson PA-C [address] [place] [address] 09/15/2023 4:30 PM EDT Office Visit Gynecology/Obstetrics [facility] [address] [place] [address] Marielle Mae PA-C [address] [place] [address] Scheduled Orders Name Type Priority Associated Diagnoses Orde r Schedule US PREG FOLLOW-UP EACH FETUS Medical Imaging Routine Diet controlled gestational diabetes mellitus (GDM) in third trimester Uterine size date discrepancy Other specified related conditions, third trimester Expected: 08/25/2023 (Approximate), Expires: 09/10/2024 Health Maintenance Due Date Last Done Comments [...] gestational diabetes mellitus (GDM) in third trimester Uterine size date discrepancy Uterine size date discrepancy, antepartum condition or complication Other specified related conditions, third trimester documented in this encounter Care Teams Manager Of Care Relationship Specialty Start Date End Date Maury Boss DO [address] [place] [address] PCP - General Family Medicine 03/21/13 documented as of this encounter
--- OUTSIDE RECORDS SUMMARY | 2023-09-13 13:58 | External Medical Summary | Summary of Care ---
Author Name Unknown Organization [facility] Address [address] [facility] [place] [address] Phone [phone] Care Team Providers Care Combatant Diver Qualified Name Role Phone Maury Boss Primary Care Provider Reason for Visit * Reason Comments Return Visit Encounter Details Date Type Department Care Team (Late st Contact Info) Description 07/24/2023 4:15 PM EDT Office Visit Gynecology/Obstetric s [facility] [address] [place] [address] Bethel Moeller MD [address] [place] [address] Encounter for supervision of other normal in third trimester*; H/O section; History of gestational diabetes in prior , currently ; History of shoulder dystocia in prior , currently ; Insulin controlled gestational diabetes mellitus (GDM) in third trimester Allergies No known active allergiesdocumented as of this encounter (statuses as of 07/24/2023) Medications Medication Sig Dispensed Refills Start Date [...] as of this encounter (statuses as of 07/24/2023) Active Problems Problem Noted Date Diagnosed Date [...] improved; missing several values; Stable; diet controlled Last Assessment & Plan: She presents for an assessment of growth and anatomy secondary to a recent diagnosis of GDM. She has a history of macrosomia and a shoulder dystocia in her 2nd and delivered via in her 3rd . Per review of SETTER COLD ROLLING MACHINE documentation, her blood glucose values have overall [...] as of this encounter (statuses as of 07/24/2023) Resolved Problems Problem Noted Date Diagnosed Date Resolved Date presentation, breech 03/30/2020 0 04/15/2020 Overview: For C/S 04/21 Vertex on 04/15/20 Insulin controlled gestation al diabetes mellitus (GDM) in third trimester 01/28/20202020 Overview: As of 03/30/20: NPH 51 units with breakfast meal and 28 units at bedtime with snack. Managed by [facility] Growth q4 weeks NSTs 2x/week Deliver by [...] maintain these target values. Report levels to [facility] weekly. 2. Has been provided with glucometer and supplies and instructed on proper use. 3. Recommend weapons designer consult. Lifestyle changes are also indicated including [...] poor blood sugar control, please refer to [facility] for consideration of earlier delivery. 7. [...] 06/17/2020 Overview: 2nd baby 9#13, shoulder dystocia [facility] guidelines: early GDM screen, growth u/s [...] as of this encounter (statuses as of 07/24/2023) Immunizations Name Administration Dates Next Due Seasonal [...] money to get more. Never true 02/09/2023 [place] Depression Scale Answer Date Recorded [place] Depression Scale Total 6 06/29/2023 The thought [...] Reading Time Taken Comments Blood Pressure 108/62 07/24/2023 4:15 PM EDT Pulse - - Temperature - - Respiratory Rate - - Oxygen Saturation - - Inhaled Oxygen Concentration - - Weight 89.2 kg (196 lb 9.6 oz) 07/24/2023 4:15 P M EDT Height 165.1 cm (5' 5") 07/24/2023 4:15 PM EDT Body Mass Index 32.72 07/24/2023 4:15 PM EDT documented in this encounter Progress Notes * Bethel Moeller MD - 07/24/2023 4:28 PM EDT Pt doing well No complaint Prior c/sec RTC 2 weeks * Yvette Floyd MED ASSIST - 07/24/2023 4:15 PM EDT 32w2d No concerns. Pt state sciatic nerve pain occasionally documented in this encounter Plan of Treatment Upcoming Encounters Date Type Department Care Team (Late st Contact Info) Description 08/11/2023 2:30 PM EDT Office Visit Gynecology/Obstetrics [facility]ragon [address] [place] [address] Sidra Cleary CRNP [address] [place] [address] 08/23/2023 4:00 PM EDT Office Visit Gynecology/Obstetrics [facility] [address] [place] [address] Ashlee Sewell, CN [address] [place] [address] Health Maintenance Due Date Last Done Comments [...] , currently with other poor obstetric history Insulin controlled gestational diabetes mellitus (GDM) in third trimester documented in this encounter Care Teams Combatant Diver Qualified Relationship Specialty Start Date End Date Maury Boss DO [address] [facility] [place] [address] PCP - General Family Medicine 03/21/13 documented as of this encounter
--- OUTSIDE RECORDS SUMMARY | 2023-09-13 13:58 | External Medical Summary | Summary of Care ---
Author Name Unknown Organization [facility] Address [address] [facility] [place] [address] Phone [phone] Care Team Providers Care Cumulative Effects Analyst Name Role Phone Maury Boss Primary Care Provider Reason for Visit * Reason Onset Date Comments Surgery 08/15/2023 Encounter Details Date Type Department Care Team (Late st Contact Info) Description 08/15/2023 Telephone Gynecology/Obstetrics [facility] [address] [place] [address] Bethel Moeller MD [address] [place] [address] Surgery Allergies No known active allergiesdocumented as of this encounter (statuses as of 08/15/2023) Medications Medication Sig Dispensed Refills Start Date End Date Status Vit-Fe Fumarate-FA ( FORMULA) 28-0.8 MG TABS Take by mouth. 0 Active Breast PumpIndications:Br east feeding status of mother KIM 09/16/23, Z39.1, double electric pump 1 Each 0 06/29/2023 Active Additional Information Patient not taking.Reported on 07/05/2023 [employer]ogi[employer] Verio Flex System w/Device Kit Use to test blood sugars 4 times daily (fasting, 1 hour after breakfast, lunch, and dinner) 3.21 Each 0 06/29/2023 Active [employer] Verio In Vitro Strip (Glucose Blood) Use [...] as of this encounter (statuses as of 08/15/2023) Active Problems Problem Noted Date Diagnosed Date [...] dinner values; FU ADAPT scheduled on 08/18/23 Last Assessment & Plan: She presents for an assessment of growth and anatomy secondary to a recent diagnosis of GDM. She has a history of macrosomia and a shoulder dystocia in her 2nd and delivered via in her 3rd . Per review of COMMUNICATIONS SCIENTIST documentation, her blood glucose values have overall [...] as of this encounter (statuses as of 08/15/2023) Resolved Problems Problem Noted Date Diagnosed Date [...] maintain these target values. Report levels to [facility] weekly. 2. Has been provided with glucometer and supplies and instructed on proper use. 3. Recommend rn labor and delivery consult. Lifestyle changes are also indicated including [...] poor blood sugar control, please refer to [facility] for consideration of earlier delivery. 7. [...] a history of GDM. High-risk 12/11/2019 06/18/19 Overview: A+, rubella immune Planning to breast feed Boy COVID-19 affecting , antepartum 12/11/2019 06/17/2020 Overview: + early November, asymptomatic History of delivery of macrosomal infant 12/11/2019 06/17/2020 Overview: 2nd baby 9#13, shoulder dystocia [facility] guidelines: early GDM screen, growth u/s [...] as of this encounter (statuses as of 08/15/2023) Immunizations Name Administration Dates Next Due Seasonal [...] money to get more. Never true 02/09/2023 [place] Depression Scale Answer Date Recorded [place] Depression Scale Total 6 06/29/2023 The thought [...] encounter Miscellaneous Notes * Telephone Encounter - Uma Isaac OSA - 08/15/2023 11:55 AM EDT Pt is scheduled for 09/12 * Telephone Encounter - Uma Isaac OSA - 08/15/2023 8:23 AM EDT LM on pt VM to call and schedule c/section. documented in this encounter Plan of Treatment Upcoming Encounters Date Type Department Care Team (Late st Contact Info) Description 08/18/2023 1:00 PM EDT Telemedicine Boat Worker Obstetrics Maternal Medicine, [place] [address] [facility] [address] [place] [address] Yue Padron CRNP [address] [facility] [address] [place] [address] 08/23/2023 3:00 PM EDT Imaging Radiology [facility] [address] [facility] [place] [address] 08/23/2023 4:00 PM EDT Office Visit Gynecology/Obstetrics [facility] [address] [place] [address] Ashlee Sewell CN [address] [place] [address] 08/30/2023 4:15 PM EDT Office Visit Gynecology/Obstetrics [facility] [address] [place] [address] Bethel Moeller MD [address] [place] [address] 09/07/2023 2:30 PM EDT Office Visit Gynecology/Obstetrics [facility] [address] [place] [address] Madeline Nielson PA-C [address] [place] [address] 09/20/2023 1:30 PM EDT Office Visit Gynecology/Obstetrics [facility] [address] [place] [address] Marielle Mae PA-C [address] [place] [address] Health Maintenance Due Date Last Done Comments [...] filedocumented as of this encounter Care Teams Cumulative Effects Analyst Relationship Specialty Start Date End Date Maury Boss DO [address] [place] [address] PCP - General Family Medicine 03/21/13 documented as of this encounter
--- OUTSIDE RECORDS SUMMARY | 2023-09-13 13:58 | External Medical Summary | Summary of Care ---
Author Name Unknown Organization [facility] Address [address] [place] [address] Phone [phone] Care Team Providers Care Heavy Equipment Operator Name Role Phone Maury Boss Primary Care Provider Encounter Details Date Type Department Care Team (Late st Contact Info) Description 08/02/[address] Obstetrics Maternal Medicine, [place] [address] [place], [place] [phone] [place], Nurse Court Attendant [facility] [address] [place], [place] [id number] Allergies No known active allergiesdocumented as of this encounter (statuses as of 08/03/2023) Medications Medication Sig Dispensed Refills Start Date [...] as of this encounter (statuses as of 08/03/2023) Active Problems Problem Noted Date Diagnosed Date [...] PARS notified to assist patient with scheduling) Last Assessment & Plan: She presents for an assessment of growth and anatomy secondary to a recent diagnosis of GDM. She has a history of macrosomia and a shoulder dystocia in her 2nd and delivered via in her 3rd . Per review of ECONOMIC ANALYSIS DIRECTOR documentation, her blood glucose values have overall [...] as of this encounter (statuses as of 08/03/2023) Resolved Problems Problem Noted Date Diagnosed Date [...] and instructed on proper use. 3. Recommend parts room associate consult. Lifestyle changes are also indicated including [...] 05/18/2016 12/11/2019 GBS (group B Streptococcus c arraddie), +RV culture, currently 10/28/2013 11/12/2013 Overview: No medication allergies. , normal first 03/21/201308/2013 Overview: FTS done. Offer MSAFP after 15 weeks-negative documented as of this encounter (statuses as of 08/03/2023) Immunizations Name Administration Dates Next Due Seasonal [...] money to get more. Never true 02/09/2023 [place] Depression Scale Answer Date Recorded [place] Depression Scale Total 6 06/29/2023 The thought [...] encounter Miscellaneous Notes * Telephone Encounter - Shanna Mackay OSA - 08/03/2023 11:24 AM EDT Phone call to patient. Left message on [employer] voice mail. Encouraged patient to return call to [facility] to assist with scheduling. Sent MyG * Telephone Encounter - Lisa Zamora OSA - 08/02/2023 7:42 AM EDT Phone call to patient. Left message on [employer] voice mail. Encouraged patient to return call to [facility] to assist with scheduling. * Telephone Encounter - Lisa Zamora OSA - 08/02/2023 7:42 AM EDT ----- Message from NEGRITA Disla sent at 08/01/2023 11:32 AM EDT ----- Regarding: please offer ADAPT Hi team, Please offer patient an ADAPT follow-up visit this week. Thanks! Madeline documented in this encounter Plan of Treatment Upcoming Encounters Date Type Department Care Team (Late st Contact Info) Description 08/11/2023 2:30 PM EDT Office Visit Gynecology/Obstetrics [address] [place] [address] Sidra Cleary CRNP [address] [place] [address] 08/23/2023 4:00 PM EDT Office Visit Gynecology/Obstetrics Kwadwo Mondragon [address] [place] [address] Ashlee Sewell CN [address] [place] [address] Health Maintenance Due Date Last Done Comments Hepatitis B (3 of 3 - 3-dose series) 08/30/1994 07/05/1994, 02/11/1994 Depression Screening 10/18/2019 10/17/2018 COVID-19 Vaccine (2022- season) 2022 Pap Smear 06/18/2023 06/17/2020, 05/12, [...] filedocumented as of this encounter Care Teams Heavy Equipment Operator Relationship Specialty Start Date End Date Maury Boss DO [address] [place] [address] PCP - General Family Medicine 03/21/13 documented as of this encounter
--- OUTSIDE RECORDS SUMMARY | 2023-09-13 13:58 | External Medical Summary | Summary of Care ---
Author Name Unknown Organization [facility] Address [address] [facility] [place] [address] Phone [phone] Care Team Providers Care Doctor Of Naprapathy Name Role Phone EliudMaury hill Primary Care Provider Encounter Details Date Type Department Care Team (Late st Contact Info) Description 07/03/2023 Telephone Gynecology/Obstetrics, [place] [address] [facility] [place] [address] Nallely Brady CNM [address] [place] [address] Allergies No known active allergiesdocumented as of this encounter (statuses as of 07/03/2023) Medications Medication Sig Dispensed Refills Start Date End Date Status Vit-Fe Fumarate-FA ( FORMULA) 28-0.8 MG TABS Take by mouth. 0 Active Breast PumpIndications:Br east feeding status of mother KIM 09/16/23, Z39.1, double electric pump 1 Each 0 06/29/2023 Active Aphriaio Flex System w/Device Kit Use to test blood sugars 4 times daily (fasting, 1 hour after breakfast, lunch, and dinner) 3.21 Each 0 06/29/2023 Active [employer] Verio In Vitro Strip (Glucose Blood) Use [...] for Constipation. 60 Capsule 5 07/03/2023 Active documented as of this encounter (statuses as of 07/03/2023) Active Problems Problem Noted Date Diagnosed Date GDM (gestational diabetes mellitus) 06/29/2023 History of shoulder dystocia in prior , [...] as of this encounter (statuses as of 07/03/2023) Resolved Problems Problem Noted Date Diagnosed Date [...] maintain these target values. Report levels to [facility] weekly. 2. Has been provided with glucometer and supplies and instructed on proper use. 3. Recommend medical operations supervisor consult. Lifestyle changes are also indicated including [...] poor blood sugar control, please refer to [facility] for consideration of earlier delivery. 7. [...] 06/17/2020 Overview: 2nd baby 9#13, shoulder dystocia [facility] guidelines: early GDM screen, growth u/s [...] as of this encounter (statuses as of 07/03/2023) Immunizations Name Administration Dates Next Due Seasonal [...] money to get more. Never true 02/09/2023 [place] Depression Scale Answer Date Recorded [place] Depression Scale Total 6 06/29/2023 The thought [...] encounter Miscellaneous Notes * Telephone Encounter - Jaky Cunha LPN - 07/03/2023 2:36 PM EDT Phone call from pt. Pt aware and verbalizes understanding Jaky Cunha LPN 07/03/2023 2:36 PM * Telephone Encounter - Dara Patino RN - 07/03/2023 2:21 PM EDT T/C to pt. No answer. VM left for pt to return call to office. * Telephone Encounter - Dara Patino RN - 07/03/2023 2:21 PM EDT ----- Message from Nallely Brady CNM sent at 07/03/2023 9:19 AM EDT ----- Please let William know that she is anemic. I sent a prescription for iron to her pharmacy and some colace in case it causes constipation. documented in this encounter Plan of Treatment Upcoming Encounters Date Type Department Care Team (Late st Contact Info) Description 07/05/2023 1:45 PM EDT Telemedicine Manager Editorial Obstetrics Maternal Medicine, [address] [address] Madeline Mack CRNP [address] [place] [address] 07/10/2023 4:30 PM EDT Office [facility] [address] [facility] [place] [address] Marielle Mae PA-C [address] [place] [address] 07/24/2023 12:45 PM EDT Office Visit Manager Editorial Obstetrics Maternal Medicine, [place] [address] [place] [address] Shin Carreon, [address] [place] [address] 07/24/2023 12:45 PM EDT Imaging Radiology [facility], [place] [address] [place], [place] [phone] Health Maintenance Due Date Last Done Comments [...] filedocumented as of this encounter Care Teams Doctor Of Naprapathy Relationship Specialty Start Date End Date GeraMaury DO [place] [address] [place] [address] PCP - General Family Medicine 03/21/13 documented as of this encounter
--- OUTSIDE RECORDS SUMMARY | 2023-09-13 13:58 | External Medical Summary | Summary of Care ---
Author Name Unknown Organization [facility] Address [address] [facility] [place] [address] Phone [phone] Care Team Providers Care Rough Planer Tender Name Role Phone [place] Primary Care Provider Reason for Visit * Reason Comments Return Visit Encounter Details Date Type Department Care Team (Late st Contact Info) Description 07/10/2023 4:30 PM EDT Office Visit Gynecology/Obstetric s [facility] [address] [place] [id number] Marielle Mae PA-C [address] [place] [phone] Encounter for supervision of other normal in third trimester*; H/O section; History of gestational diabetes in prior , currently ; History of shoulder dystocia in prior , currently ; Diet controlled gestational diabetes mellitus (GDM) in third trimester Allergies No known active allergiesdocumented as of this encounter (statuses as of 07/10/2023) Medications Medication Sig Dispensed Refills Start Date End Date Status Vit-Fe Fumarate-FA ( FORMULA) 28-0.8 MG TABS Take by mouth. 0 Active Breast PumpIndications:Br east feeding status of mother KIM 09/16/23, Z39.1, double electric pump 1 Each 0 06/29/2023 Active Additional Information Patient not taking.Reported on 07/05/2023 [employer] Verio Flex System w/Device Kit Use to [...] as of this encounter (statuses as of 07/10/2023) Active Problems Problem Noted Date Diagnosed Date [...] blood sugars each week for MFM review Last Assessment & Plan: CONSIDERATIONS: Reviewed etiology and risks associated with gestational diabetes mellitus (GDM), including risks to , fetus, and maternal progression to Type 2 DM. Instructed on proper use of glucometer; supplies ordered, if indicated. Advised that life-long screening for diabetes is recommended every 1-3 years. RECOMMENDATIONS: Recommend monitoring blood sugars with daily fasting blood sugar (maintained at less than or equal to 95) and 1 hour postprandial measurements (maintained at less than or equal to 140). Medications should be adjusted to maintain these target values. Report levels to MFM (Maternal- Medicine) weekly. Recommend nutrition consult with RDN (Registered Dietitian Engineering Operations Leader). Lifestyle changes are also indicated including optimizing gestational weight gain and physical activity of 30 minutes per day, if not otherwise contraindicated in . Insulin is preferred if medications are indicated to optimize euglycemia. Metformin (preferred over glyburide) may also be used in some circumstances. Reviewed the risks and benefits of each. Recommend ultrasound, surveillance and delivery as follows: A1GDM, delivery should be accomplished by 41w0d. A2GDM, recommend growth assessment with MFM every 4 weeks, initiate surveillance at 32 weeks and continue until delivery at 39 weeks. Recommend intrapartum monitoring every 1-2 hours (A2GDM) or every 4 hours (A1GDM) and treat with insulin if indicated. Recommend 2-hour glucose tolerance testing with 75-gram glucose load 6-8 weeks . History of shoulder dystocia in prior , [...] as of this encounter (statuses as of 07/10/2023) Resolved Problems Problem Noted Date Diagnosed Date Resolved Date presentation, breech 03/30/2020 0 04/15/2020 Overview: For C/S 04/21 Vertex on 04/15/20 Insulin controlled gestation al diabetes mellitus (GDM) in third trimester 01/28/20202020 Overview: As of 03/30/20: NPH 51 units with breakfast meal and 28 units at bedtime with snack. Managed by [facility] Growth q4 weeks NSTs 2x/week Deliver [...] maintain these target values. Report levels to [facility] weekly. 2. Has been provided with glucometer and supplies and instructed on proper use. 3. Recommend sulphate tester consult. Lifestyle changes are also indicated [...] poor blood sugar control, please refer to [facility] for consideration of earlier delivery. 7. [...] 06/17/2020 Overview: 2nd baby 9#13, shoulder dystocia [facility] guidelines: early GDM screen, growth u/s [...] as of this encounter (statuses as of 07/10/2023) Immunizations Name Administration Dates Next Due Seasonal [...] money to get more. Never true 02/09/2023 [place] Depression Scale Answer Date Recorded [place] Depression Scale Total 6 06/29/2023 The thought [...] Sign Reading Time Taken Comments Blood Pressure 116/64 07/10/2023 4:29 PM EDT Pulse - - Temperature - - Respiratory Rate - - Oxygen Saturation - - Inhaled Oxygen Concentration - - Weight 87.1 kg (192 lb) 07/10/2023 4:29 PM EDT Height 165.1 cm (5' 5") 07/10/2023 4:29 PM EDT Body Mass Index 31.95 07/10/2023 4:29 PM EDT documented in this encounter Progress Notes * Marielle Mae PA-C - 07/10/2023 4:46 PM EDT 30w2d No complaints. S/p Mfm consult for GDM, diet controlled currently. Pt reporting. Has follow up u/s with them scheduled 07/24/2023. Planning repeat c/s with tubal. Message sent to OR jewel setter to assist. Denies VB, LOF, contractions. Pos fm. RTC in 2 weeks Marielle Mae PA-C documented in this encounter Nursing Notes * Nicole Brice LPN - 07/10/2023 4:33 PM EDT 30w2d Denies concerns documented in this encounter Plan of Treatment Upcoming Encounters Date Type Department Care Team (Late st Contact Info) Description 07/24/2023 12:45 PM EDT Office Visit Newspaper Carriers Supervisor Obstetrics Maternal Medicine, [place] [address] [place] [address] [place] Carreon, [address] [place] [address] 07/24/2023 12:45 PM EDT [facility], [place] [address] [place] [address] 07/26/2023 3:15 PM EDT Office Visit Gynecology/Obstetrics [facility] [address] [place] [phone] Sidra Cleary CRNP [address] [place] [phone] Health Maintenance Due Date Last Done Comments Hepatitis B (3 of 3 - 3-dose series) 08/30/1994 07/05/1994, 02/11/1994 Depression Screening 10/18/2019 10/17/2018 COVID-19 Vaccine (2022-24 season) 2022 Pap Smear 06/18/2023 06/17/2020, 05/12, [...] trimester documented in this encounter Care Teams Rough Planer Tender Relationship Specialty Start Date End Date Maury Boss DO [address] [facility] [place] [id number] PCP - General Family Medicine 03/21/13 documented as of this encounter
--- OUTSIDE RECORDS SUMMARY | 2023-09-13 13:58 | External Medical Summary | Summary of Care ---
Author Name Unknown Organization [facility] Address [address] [place] [address] Phone [phone] Care Team Providers Care Field Identification Specialist Name Role Phone Maury Boss Primary Care Provider Reason for Referral * Evaluate & Treat - Unlimited Visits (Within 3 days (urgent)) - Pending Review Specialty Diagnoses / Procedures Referred By Aris mayen Referred To Contact [employer] Diagnoses Supervision of high risk in third trimester Diet controlled gestational diabetes mellitus (GDM) in third trimester Madeline Mack CRNP [address] [place] [address] Referral ID Status Reason Start Date Expiration Date Visits Requested Visits Authorized [id number] Pending Review Specialty Services Required 07/05/2023 1 1 Question Answer Referral Priority Within 3 days (urgent) Where should this appointment be scheduled? [facility] Program Type Chronic Disease Management Chronic Disease Management Diabetes in Alarm Settings Standard per protocol Comments OneTouch Verio meter Reason for Visit * Reason Comments Consultation Gestational diabetes * Evaluate & Treat - Unlimited Visits (Within 10 days (routine)) - Pending Review Specialty Diagnoses / Procedures Referred By Aris mayen Referred To Contact Obstetrics/Gynecology / Maternal Medicine Diagnoses Gestational diabetes mellitus (GDM) in third trimester, gestational diabetes method of control unspecified Nallely Brady CNM [address] [place] [address] Referral ID Status Reason Start Date Expiration Date Visits Requested Visits Authorized [id number] Pending Review Specialty Services Required 06/29/[phone] Encounter Details Date Type Department Care Team (Late st Contact Info) Description 07/05/2023 1:45 PM EDT Telemedicine Psychiatry Resident Obstetrics Maternal Medicine, [place] [address] [facility] [address] [place] [address] Madeline Mack CRNP [address] [place] [address] Supervision of high risk in third trimester*; 29 weeks gestation of ; Diet controlled gestational diabetes mellitus (GDM) in third trimester Allergies No known active allergiesdocumented as of this encounter (statuses as of 07/05/2023) Medications Medication Sig Dispensed Refills Start Date [...] as of this encounter (statuses as of 07/05/2023) Active Problems Problem Noted Date Diagnosed Date [...] Recommend nutrition consult with RDN (Registered Dietitian Agricultural Appraiser). Lifestyle changes are also indicated including optimizing [...] as of this encounter (statuses as of 07/05/2023) Resolved Problems Problem Noted Date Diagnosed Date [...] and instructed on proper use. 3. 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 Lifestyle changes are also indicated including [...] poor blood sugar control, please refer to [facility] for consideration of earlier delivery. 7. Recommend [...] 06/17/2020 Overview: 2nd baby 9#13, shoulder dystocia [facility] guidelines: early GDM screen, growth u/s at 36-37 weeks History of shoulder dystocia in prior 12/11/2019 06/17/2020 Overview: Pt WANTS c/sec Short interval between pregn ancies complicating , antepartum 12/11/201906/17 Overview: Last baby delivered 08/2018 Chronic tension-type headach e, not intractable 05/18/2016 12/11/2019 GBS (group B Streptococcus c arrier), +RV culture, currently 10/28/2013 11/12/2013 Overview: No medication allergies. , normal first 03/21/2013/08/2013 Overview: FTS done. Offer MSAFP after 15 weeks-negative documented as of this encounter (statuses as of 07/05/2023) Immunizations Name Administration Dates Next Due Seasonal [...] money to get more. Never true 02/09/2023 Wooster Depression Scale Answer Date Recorded Wooster Depression Scale Total 6 06/29/2023 The thought [...] as of this encounter Progress Notes * Madeline Mack CRNP - 07/05/2023 2:15 PM EDT MATERNAL MEDICINE CONSULT William Lopez 07/05/23 REFERRING PROVIDER: Nallely Brady CNM Patient location: HOME. I was in a hospital or clinic location. After connecting through [employer],patient was verified with two unique identifiers. 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 Methods to assure confidentiality were taken. Patient acknowledged consent and understanding of pr ivacy and security of the Telemedicine visit. The patient agreed to participate. William Lopez is a 27 year old with intrauterine at 29w4d (Estimated Date of Delivery: 09/16/23 by exact LMP) who presents today for an MFM consult due to gestational diabetes. HPI/CURRENT : pre- BMI= 28.96 (78.9 kg (174 lb); 5' 5"); FOB #1; complicated by above. Genetic testing: Opted out OB [facility] Problems (from 02/07/23 to present) Problem Noted Resolved GDM (gestational diabetes mellitus) Overview Addendum 07/05/2023 2:08 PM by Madeline Mack CRNP Diagnosed at 28 weeks Patient deferred Nutrition referral at this time. OneTouch Verio meter ordered Of note: history of GDMA2 (insulin) in [...] blood sugars each week for MFM review I have reviewed this patient's previous OB ultrasound reports, pertinent labwork and testing provided by her referring OB provider. Current Outpatient Medications Medication Sig Dispense Refill Breast Pump KIM 09/16/23, Z39.1, double electric pump (Patient not taking: Reported on 07/05/2023) 1 Each 0 Docusate Sodium 100 MG Oral Capsule (Colace) Take 1 Capsule by mouth 3 times a day as needed for Constipation. (Patient not taking: Reported on 07/05/2023) 60 Capsule 5 Fingerstix Lancets Check blood sugar four times per day as instructed 642.86 Each 6 Iron-Vitamin C 65-125 MG Oral Tablet (Vitron C) Take 1 Tablet by mouth in the morning. 90 Tablet 2 OneTouch Verio Flex System w/Device Kit Use to test blood sugars 4 times daily (fasting, 1 hour after breakfast, lunch, and dinner) 3.21 Each 0 OneTouch Verio In Vitro Strip (Glucose Blood) Use to test blood sugars 4 times daily (fasting, 1 hour after breakfast, lunch, and dinner) 425 Each 6 Vit-Fe Fumarate-FA ( FORMULA) 28-0.8 MG TABS Take by mouth. No current facility-administered medications for this visit. Review of patient's allergies indicates: No Known Allergies OB History Para Term AB Living 4 3 3 0 0 3 SAB IAB Ectopic Multiple Live Births 0 0 0 0 3 # Outcome Date GA Lbr Kenny/2nd Weight Sex Delivery Anes PTL Lv 4 Current 3 Term 04/21/20 39w2d 3.912 kg (8 lb 10 oz) M CS-LTranv N ARNOLD Comments: GDMA2 2 Term 08/31/18 40w4d 4.471 kg (9 lb 13.7 oz) F Vag-Spont EPI N ARNOLD Complications: Shoulder Dystocia, Second degree perineal laceration 1 Term 11/05/13 41w1d 12:48 3.799 kg (8 lb 6 oz) F Vag-Spont EPI N ARNOLD Obstetric Comments 2023 FOB#1 Michael 25YO healthy aside from hypertension, no children outside relationship Past Medical History: Diagnosis Date Chronic tension-type headache, not intractable 01/08/2018 Gestational diabetes 01/2020 Pap smear abnormality of cervix 01/2013 Past Surgical History: Procedure Laterality Date DELIVERY 04/21/2020 Family History Problem Relation Age of Onset No Known Problems Mother Hypertension Father No Known Problems Sister No Known Problems Brother Breast Cancer Grandmother (Maternal) Ovarian cancer Grandmother (Paternal) No Known Problems Daughter No Known Problems Daughter No Known Problems Son Social History Tobacco Use Smoking status: Never Smokeless tobacco: Never Vaping Use Vaping Use: Never used Substance Use Topics Alcohol use: No Drug use: No REVIEW OF SYSTEMS: headaches: no nausea/vomiting: denies reports movement: yes (+ kick counts) abdominal pain/tenderness/cramping/contractions: no vaginal bleeding: no vaginal leaking of fluid: no all other systems negative PHYSICAL EXAM: LMP 2022 (Exact Date) General: Well appearing and in no acute distress Psych: Alert to time, place, and person and Pleasant DISCUSSION/RECOMMENDATIONS: Problem List Items Addressed This Visit OB Keisha Mondragon Supervision of high risk in third trimester GDM (gestational diabetes mellitus) CONSIDERATIONS: Reviewed etiology and risks associated with gestational diabetes mellitus (GDM), including risks topregnancy, fetus, and maternal progression to Type 2 [...] Recommend nutrition consult with RDN (Registered Dietitian Agricultural Appraiser). Lifestyle changes are also indicated including optimizing gestational weight gain and physical activity of 30 minutes per day, if not otherwise contraindicated in . Insulin is preferred if medications are indicated to optimize euglycemia. Metformin (preferred overglyburide) may also be used in some circumstances. [...] with 75-gram glucose load 6-8 weeks . Relevant Orders REMOTE PATIENT MONITORING REFERRAL Follow up ultrasound with Maternal Medicine is scheduled on 07/24/[address] Carreon for anatomy scan. Patient is aware of upcoming MFM appointment. NEGRITA Mendoza 07/05/2023 2:27 PM documented in this encounter Miscellaneous Notes * Pt Handout (on AVS) - Madeline Mack CRNP - 07/05/2023 2:09 PM EDT Images from the original note were not included. [id number] If You Need Extra Insulin During During , your body may not be able to make enough insulin to control your blood sugar. If this happens, you may need extra insulin. This will help control your blood sugar. In some cases, anoral antidiabetic medicine may be used. An example of this is glyburide. But insulin is used most often. Insulin is a natural substance. It is not addictive. It does not harm your baby. It does not cross the placenta. That means it does not affect your baby the way taking a pill would. If you did not have diabetes before , you will likely stop taking insulin after your baby is born. Learning to use insulin Your healthcare provider will prescribe your insulin. They will teach you how to give yourself a shot. With practice, you?ll get comfortable doing it. You will need to inject it 1 or more times a day. Insulin is injected into fatty tissue. The best site for a shot of insulin is in your belly area. But you can also do the shot in your upper arm or thigh. Talk with your healthcare provider about where to give the shot. Here are some steps to follow: Choose an injection site. Clean it with alcohol if the skin is dirty. Pinch a fold of skin. Insert the needle at a steep angle. The best angle will depend on your body type, the length of the needle, and where you put the shot. Your healthcare provider will help youfind the best angle. Keeping the skin pinched, push the plunger down. This injects the insulin. Release the pinched skin. Remove the needle from your skin. If you see blood or insulin leaking from your skin, press firmly on the site for 5 to 8 seconds. Don?t rub your skin in the area. [place] and syringes should be used only 1 time. After using, throw them away in a puncture-proof container. This is known as a sharps container. Don?t throw needles in your household trash. Talk to your healthcare provider if you have any questions or concerns about taking insulin. The best site for injecting insulin is your abdomen. But you can also inject into an upper arm or thigh. Talk with your health care provider about where to give yourself a shot. Finding the right dose for you Your healthcare provider will work with you to find the right dose of insulin for you. It may take time. This is because you need to balance your insulin with your food and exercise. And your body needs more insulin as your baby grows. You must check your blood sugar several times a day. This is to be sure your insulin is working. Ifyour blood sugar is too high or too low, your healthcare provider will adjust your dose. Low blood sugar Taking insulin puts you at risk of low blood sugar. Symptoms of low blood sugar include: Shakiness Dizziness Weakness Confusion If you feel any of these symptoms, check your blood sugar right away. Always treat low blood sugar quickly. To do this, eat 15 grams of fast-acting sugar, such as: 3 glucose tablets 5 to 6 pieces of hard candy 1 to 2 tablespoons of honey or sugar cup fruit juice or regular, nondiet soda 1 cup fat-free milk Then check your blood sugar again in 15 minutes. If your blood sugar is still low, eat another 15 grams of sugar. If your blood sugar does not return to the target range in 30 minutes, call your healthcare provider. Last Reviewed Date: 03/10/202219997023-9243 [employer]. All rights reserved. This information is not intended as a substitute for professional medical care. Always follow your healthcare professional's instructions. * Pt Handout (on AVS) - Madeline Mack CRNP - 07/05/2023 2:09 PM EDT Images from the original note were not included. [id number] Understanding Carbohydrates Just like a car needs the right type of fuel to run, you need the right kind of food to function. To keep your energy level up, your body needs food that has carbohydrates (carbs). But carbs raise blood sugar levels higher and faster than other kinds of food. Your dietitian will work with you to figure out the amount of carbs you need. Carbs come in 3 types: starches, sugars, and fiber. Starches Starches are found in grains, some vegetables, and beans. Grain products include bread, pasta, cereal, and tortillas. Starchy vegetables include potatoes, peas, corn, prakash beans, yams, and squash. Kidney beans, ayers beans, black beans, garbanzo beans, and lentils also have starches. Sugars Sugars are found naturally in many foods. Or they can be added. Foods that contain natural sugar include fruits and fruit juices, dairy products, honey, and molasses. Added sugars are found in most desserts, processed foods, candy, regular soda, and fruit drinks. These are very helpful to treat lowblood sugar (hypoglycemia). They give you sugar quickly. Try to keep at least 15 to 20 grams of these simple sugars with you at all times. Eat or drink these if you start to have symptoms of low blood sugar. Fiber Fiber comes from plant foods. Your body can't digest most fiber. Instead of raising blood sugar levels like other carbs, fiber stops blood sugar from rising too quickly. Fiber is found in fruits, vegetables, whole grains, beans, peas, and many nuts. Understanding how to count your carbs Keep track of the amount of carbs you eat. This can help you keep the right balance of carbs, physical activity, and medicine. The amount of carbs you need will be different from what other people need. How much you need depends on many things. These include your health, the medicines you take, andhow active you are. Your healthcare team will help you figure out the right amount of carbs for you. You may start with 45 to 60 grams of carbs per meal, depending on your case. Carb counting is a system that helps you keep track of the carbohydrates you eat at each meal. Carbs come from many foods. These include grains, starchy vegetables, fruit, milk, beans, and snackfoods. You can either count carbohydrate grams or carbohydrate servings. When you count carbohydrate servings, 1 carbohydrate serving = 15 grams of carbohydrates. Here are some examples of foods that have about 15 grams of carbs (1 serving of carbohydrates): 1/2 cup of canned or frozen fruit A small piece of fresh fruit (4 ounces) 1 slice of bread 1/2 cup of oatmeal 1/3 cup of rice 4 to 6 crackers 1/2 Uzbek muffin 1/2 cup of black beans 1/4 of a large baked potato (3 ounces) 2/3 cup of plain fat-free yogurt 1 cup of soup 1/2 cup of casserole 6 chicken nuggets [id number]-uxwoep brownie or cake without frosting 2 small cookies 1/2 cup of ice cream or sherbet Carb counting is easier when food labels are available. Look at the label to see how many grams of total carbs per serving the food contains. Then you can figure out how much you should eat. If your food doesn't have a nutrition label, you should be able to get an idea of how many carbs there are per serving by using a book or website. Two very important lines to look at on the label are the serving size and the total carbohydrate amount per serving. Here are some tips for using food labels to count your carbs: Check the serving size. The information on the label is based on that serving size. If you eat more than the listed serving size, you may have to double or triple the other information on the label. Check the total grams of carbs. Total carbohydrate from the label includes sugar, starch, and fiber. Be sure to use the total carbohydrate number (minus the fiber) and not sugar alone. Know how many grams of carbs you can have. Be familiar with the matching portion sizes. Compare labels. Compare the labels of different products. Look at serving sizes and total carbs to find the products that work best for you. Don't forget protein and fat. With the focus on carb counting, it might be easy to forget protein and fat in your meals. Don't forget to include sources of protein and healthy fat to balance your meals. Also watch how much salt (sodium) you eat. This is especially true if you have high blood pressure. If you have diabetes, limit the amount of sodium to less than 2,300 mg a day. It?s also important to be consistent with the amount of carbs and time you eat when taking a fixed dose of diabetes medicine. Work with your healthcare provider or dietitian if you need more help. They can help you keep track of your carbs. They can also help you figure out how many grams of carbs you should have. Last Reviewed Date: 06/09/202319990835-2801 [employer]. All rights reserved. This information is not intended as a substitute for professional medical care. Always follow your healthcare professional's instructions. * Pt Handout (on AVS) - Madeline Mack CRNP - 07/05/2023 2:09 PM EDT Images from the original note were not included. [id number] What Is Gestational Diabetes? Diabetes is when your body doesn?t use blood sugar normally. Gestational diabetes happens only in . When food is digested, it turns into sugar (glucose) that goes into your bloodstream. Yourbody sends out insulin. This is a hormone that helps your cells use this blood sugar for energy. Changes in your body during may affect this process. This can cause your blood sugar to be too high. This can cause problems for both you and your baby. You can take steps to control your blood sugar. This will help reduce the risks for you and your baby. Managing gestational diabetes You need to control your blood sugar while you are . Your healthcare team will help you make a plan to do this. This plan will include: Eating the right foods. This is the main way to control your blood sugar. You need to eat a variety of healthy foods each day. To help you plan changes in your diet, you will likely work with a registered dietitian. This is an expert on food and nutrition. The dietitian may have you take part anthony nutrition program to help you reach your goals. Getting exercise. Your body uses more blood sugar when you exercise. Your healthcare team can help you pick the best kinds of exercise for you. Checking your blood sugar. You will likely need to check your blood sugar at home. You will do this 2 or more times a day. Your healthcare team will teach you how. They will talk with you about your blood sugar goals. Your blood sugar may also be tested every week or so at a clinic. If your blood sugar stays too high, you may need to have insulin shots during your . Risks to your baby If your blood sugar stays high, your baby is at risk for these problems: Your baby may grow too large. If your blood sugar stays too high, your baby may grow too large. This is called macrosomia. This means a baby is too big for a safe vaginal . A large baby may get their shoulder stuck behind the pubic bone during . This is called shoulder dystocia. The baby's arms and shoulders could be injured. This may cause permanent arm damage. The baby may also have low oxygen levels (hypoxia) while they are stuck. Hypoxia can lead to cerebral palsy. In rare cases, it can lead to . Your baby?s organs may not be fully grown at . If you have diabetes, your baby may need to be delivered early. This may be because of problems with the . Or it may be because of risks to you or your baby. If your baby is delivered early, their lungs may not work well. This is called respiratory distress syndrome. Your baby's liver also may not work normally. And your baby may have yellow color in their skin and eyes (jaundice) after . Your baby?s blood sugar may be low after . If your blood sugar is too high, your baby makesextra insulin. The baby will keep making extra insulin right after . Your baby may need to be treated for low blood sugar. Your baby could be stillborn. This is very rare. But your baby could before if your blood sugar stays high for too long. Risks to you If you don?t control your blood sugar, you are more likely to have: High blood pressure. High blood sugar makes you more likely to have high blood pressure during your . This is a danger to your health. It could lead to early delivery for your baby. Infections. High blood sugar makes you more likely to have bladder, kidney, and vaginal infections. Trouble breathing. You may feel short of breath. High blood sugar can cause too much fluid around the baby. This is called polyhydramnios. Your abdomen gets big and pushes up on your lungs. Difficult labor. Your delivery may be harder. And your recovery may take longer. If your blood sugar stays too high, your baby may grow too large. A large baby might cause injury to you during . Or the baby may have to be delivered by section (). This means making a cut (incision) in your abdomen and uterus. A is a common risk of gestational diabetes. Reduce your future risk for type 2 diabetes Women who have gestational diabetes are at higher risk of type 2 diabetes later. You are also at higher risk for gestational diabetes in your next . You can help reduce your risk in these ways: Lose excess weight. Be as active as you can. Eat more fruits and vegetables. Eat fewer processed foods. Get regular blood tests to check for diabetes. Who is at risk for gestational diabetes? You're more at risk if you: Are overweight Have a family history of diabetes Have had a baby who before Had gestational diabetes in the past Are , , , [place] or [place] , or How daily issues affect your health Many things in your daily life impact your health. This can include transportation, money problems,housing, access to food, and childcare. If you can?t get to medical appointments, you may not receive the care you need. When money is tight, it may be difficult to pay for medicines. And living far from a grocery store can make it hard to buy healthy food. If you have concerns in any of these or other areas, talk with your healthcare team. They may know of local resources to assist you. Or they may have a staff person who can help. Last Reviewed Date: 11/08/202219992570-3666 [employer]. All rights reserved. This information is not intended as a substitute for professional medical care. Always follow your healthcare professional's instructions. * Pt Handout (on AVS) - Madeline Mack CRNP - 07/05/2023 2:09 PM EDT Images from the original note were not included. [id number] Gestational Diabetes: After Your blood sugar will most likely return to normal after delivery. But gestational diabetes is a warning sign that you are at risk of getting diabetes later in life. You?re also more likely to have gestational diabetes with your next . But you can take steps to reduce these risks. Taking care of yourself Even if your blood sugar goes back to normal, you still need to take care of yourself. This will help prevent diabetes later in life. You'll need to: Keep your weight down. Eating food that is low in fat and sugar can help you control your weight. If you?re overweight, your risk of getting diabetes in 10 to 15 years more than doubles. Keeping your weight down also reduces your risk of gestational diabetes in your next . Get regular exercise. Exercise helps lower your blood sugar. It can also help you control your weight. Try to work up to at least 150 to 300 minutes of moderate exercise every week. This is at least 30 minutes each day. Have your blood sugar checked. Make an appointment to have your blood sugar checked 6 to 8 weeksafter delivery. If your blood sugar is still high, you may have type 2 diabetes. Your healthcare provider will tell you more about how to manage diabetes long-term. Have regular diabetes screenings. Have blood tests every year, or as often as your healthcare provider advises. Breastmilk is the best food for your baby. Giving only breastmilk is advised for at least your baby's first 6 months. may also help lower your blood sugar. Your healthcare provider can show you how to breastfeed. Be sure to eat healthy foods and drink extra water while you?re . You may find exercise easier right after . This is when your breasts may feel broadcast maintenance engineer. Planning a future Your blood sugar needs to be back to normal before you get again. Have your blood sugar checked before you plan your next . And remember that it?s possible to get again soon after you give . Talk with your healthcare provider about the best method of control for you and your partner. Last Reviewed Date: 05/11/202119994194-8520 [employer]. All rights reserved. This information is not intended as a substitute for professional medical care. Always follow your healthcare professional's instructions. * Pt Handout (on AVS) - rFederick MadelineNEGRITA Orantes - 07/05/2023 2:09 PM EDT Images from the original note were not included. [id number] Gestational Diabetes: Exercise Exercise can help you keep your blood sugar in a normal range. That?s because your body uses more blood sugar when you exercise. Diabetes in can often be managed with careful nutrition and exercise alone. Then you may not need medicine to control your blood sugar. Exercise regularly Your healthcare provider may want you to exercise each day. The best time depends on when your blood sugar is highest. Exercising may also help ease some common symptoms of . These include bloating, constipation, and backaches. Ask about exercise at your first care visit. Your provider will work with you to make an exercise plan that fits your needs. Here are some tips: Aim to exercise for 30 to 60 minutes a day. Do this at moderate intensity. This means you're moving enough to raise your heart rate and start sweating. But you can still talk normally. Try breaking up daily exercise into 2 or 3 sessions. For example, take a 15- minute walk after each meal. Exercise with a friend or your partner. This may help you stick to your exercise plan. Go at a comfortable pace. Don?t tire yourself out. Exercise safely Ask your provider about exercise safety for you and your baby. Walking, swimming, and low-impact orwater aerobics are often the safest things to do. Other safety tips include: Don't do activities where you jump, turn, twist, stop or start quickly. Don't lift heavy weights. Don't exercise on your back after the first trimester. This can put too much pressure on an important vein. It can limit blood flow to the baby. If you do yoga or Pilates, find a class designed for . Use a sports bra to support your breasts. You may also want to use a belly support belt later inpregnancy. Don't get overheated. Don't do hot yoga or hot Pilates. Don't raise your heart rate to a level that makes it hard to talk. Drink plenty of water. If you use insulin, carry a carbohydrate snack with you. If you walk or do low-impact aerobics, wear sturdy shoes. If you haven?t eaten in 2 or more hours, have a light snack before exercising. Don't do contact sports that put you at risk of being hit in the belly. These include boxing, ice hockey, soccer, and basketball. Don't go skydiving or scuba diving. Don't do things that may cause a serious fall. These include horseback riding, gymnastics, and off-road cycling. Use a stationary bike. It's a safer choice than a standard bike. It will stop you from getting off balance with your growing belly. When it's not safe to exercise It's not advised to exercise when if you have any of these health conditions: Some types of heart and lung diseases with twins or more, and at risk for labor labor of your water has broken (ruptured membranes) Placenta previa later than 26 weeks of Preeclampsia or high blood pressure due to Severe anemia Cervical insufficiency or cerclage When to call your healthcare provider Call your provider right away or go to the emergency room (ER) if you have any of these: Belly pain Shortness of breath before starting exercise Vaginal bleeding Dizziness or feeling faint Chest pain Headache Decreased movement contractions Muscle weakness Calf pain or swelling Fluid leaking from the vagina Last Reviewed Date: 05/11/202119994139-3122 [employer]. All rights reserved. This information is not intended as a substitute for professional medical care. Always follow your healthcare professional's instructions. * Pt Handout (on AVS) - Madeline Mack CRNP - 07/05/2023 2:09 PM EDT Images from the original note were not included. [id number] Healthy Meals for Diabetes Ask your healthcare team to help you make a meal plan that fits your needs. Your meal plan tells you when to eat your meals and snacks, what kinds of foods to eat, and how much of each food to eat. You don?t have to give up all the foods you like. But you do need to follow some guidelines. A healthcare provider will help you develop a meal plan that fits your needs. Choose healthy carbohydrates Starches, sugars, and fiber are all types of carbohydrates (carbs). Carbs can get a bad reputation,especially since they affect your blood sugar. But your body benefits from the right amount of healthy carbs. Fiber can help lower your cholesterol and triglycerides. Fiber is also healthy for your heart. You should have 20 to 35 grams of total fiber each day. Fiber comes from plants. Fiber-rich foods include: Whole-grain breads and cereals Nuts Brown rice and quinoa Whole-wheat pasta Fruits and vegetables Beans and peas Keep track of the amount of carbs you eat. This can help you keep the right balance of physical activity and medicine. The amount of carbs needed will vary for each person. It depends on many things such as your health, the medicines you take, and how active you are. Your healthcare team will help you figure out the right amount of carbs for you. You may start with around 45 to 60 grams of carbs per meal, depending on your situation. Here are some examples of foods containing about 15 grams of carbs (1 serving of carbs): 1/2 cup of canned or frozen fruit A small piece of fresh fruit (4 ounces) 1 slice of bread 1/2 cup of oatmeal 1/3 cup of rice 4 to 6 crackers 1/2 Uzbek muffin 1/2 cup of black beans 1/4 of a large baked potato (3 ounces) 2/3 cup of plain fat-free yogurt 1 cup of soup 1/2 cup of casserole 6 chicken nuggets 9-dfre-tchbmw brownie or cake without frosting 2 small cookies 1/2 cup of ice cream or sherbet Choose healthy protein foods Proteins plays a swift role in building healthy muscles, bones, skin, and many other parts of your body. Eating protein that's low in fat can help you control your weight. It also helps keep your hearthealthy. Low-fat protein foods include: Fish Plant proteins, such as lentils, beans, peas, nuts, and soy products like tofu and soymilk Lean meat with all visible fat removed Poultry with the skin removed Low-fat or nonfat milk, cheese, and yogurt Limit unhealthy fats and sugar Saturated and trans fats are unhealthy for your heart. They raise LDL ("bad") cholesterol. Fat is also high in calories, so it can make you gain weight. To cut down on unhealthy fats and sugar, limitthese foods: Butter or margarine Palm and palm kernel oils and coconut oil Cream Cheese Nugent Lunch meats Ice cream Sweet bakery goods such as pies, muffins, and donuts Jams and jellies Candy bars Regular sodas How much to eat The amount of food you eat affects your blood sugar. It also affects your weight. Your healthcare team will tell you how much of each type of food you should eat. Use measuring cups and spoons and a food scale to measure serving sizes. Learn what a correct serving size looks like on your plate. This will help when you're away fromhome and can?t measure your servings. For instance, a serving of meat is about the size of the palmof your hand. Eat only the number of servings given on your meal plan for each food. Don?t take seconds. Learn to read food labels. Be sure to look at serving size, total carbohydrates, fiber, calories, sugar, salt, and saturated and trans fats. Look for healthier options to foods that have added sugar or salt. Plan ahead for parties. Then you can still have a good time without going overboard with unhealthy food choices. Set a good example yourself by bringing a healthy dish to [employer]. Choose healthy snacks When it comes to snacks, we often think about foods with added sugar and fats. But there are many other options for healthier snack choices. Here are a few snack ideas to choose from: Snacks with less than 5 grams of carbohydrates 1 piece of string cheese 3 celery sticks plus 1 tablespoon of peanut butter 5 jimenez tomatoes plus 1 tablespoon of ranch dressing 1 hard-boiled egg 1/4 cup of fresh blueberries 5 baby carrots 1 cup of light popcorn 1/2 cup of sugar-free gelatin 15 almonds Snacks with about 10 to 20 grams of carbohydrates 1/3 cup of hummus plus 1 cup of fresh cut nonstarchy vegetables (carrots, green peppers, broccoli, celery, or a mix) 1/2 cup of fresh or canned fruit plus 1/4 cup of cottage cheese 1/2 cup of tuna salad with 4 crackers 2 rice cakes and a tablespoon of peanut butter 1 small apple or orange 3 cups light popcorn 1/2 of a turkey sandwich (1 slice of whole-wheat bread, 2 ounces of turkey, and mustard) Portion sizes are important to controlling your blood sugar and staying at a healthy weight. Stock up on healthy snack items so you always have them on hand. When to eat Your meal plan will likely include breakfast, lunch, dinner, and some snacks. Try to eat your meals and snacks at about the same times each day. Eat all your meals and snacks. Skipping a meal or snack can make your blood sugar drop too low. It can also cause you to eat too much at the next meal or snack. Then your blood sugar could get toohigh. Last Reviewed Date: 03/10/202119995010-6105 [employer]. All rights reserved. This information is not intended as a substitute for professional medical care. Always follow your healthcare professional's instructions. * Assessment & Plan Note - Madeline Mack CRNP - 07/04/2023 9:01 AM EDTAssociated Problem(s): GDM (gestational diabetes mellitus) CONSIDERATIONS: Reviewed etiology and risks associated with gestational diabetes mellitus (GDM), including risks topregnancy, fetus, and maternal progression to Type 2 [...] Recommend nutrition consult with RDN (Registered Dietitian Agricultural Appraiser). Lifestyle changes are also indicated including optimizing gestational weight gain and physical activity of 30 minutes per day, if not otherwise contraindicated in . Insulin is preferred if medications are indicated to optimize euglycemia. Metformin (preferred overglyburide) may also be used in some circumstances. [...] with 75-gram glucose load 6-8 weeks . documented in this encounter Plan of Treatment Upcoming Encounters Date Type Department Care Team (Late st Contact Info) Description 07/10/2023 4:30 PM EDT Office Visit Gynecology/Obstetrics [facility] [address] [facility] [place] [address] Marielle Mae PA-C [address] [place] [address] 07/24/2023 12:45 PM EDT Office Visit Psychiatry Resident Obstetrics Maternal Medicine, [place] [address] [place] [address] Shin Carreon, [address] [place] [address] 07/24/2023 12:45 PM EDT Imaging Radiology [facility] [address] [place], [place] [id number] Scheduled Referrals Name Type Priority Associated Diagnoses Orde r Schedule REMOTE PATIENT MONITORING REFERRAL Referral Within 3 days (urgent) Supervision of high risk in third trimester Diet controlled gestational diabetes mellitus (GDM) in third trimester Ordered: 07/05/2023 Health Maintenance Due Date Last Done Comments [...] as of this encounter Visit Diagnoses Diagnosis Supervision of high risk in third trimester- Primary Unspecified high-risk 29 weeks gestation of state, incidental Diet controlled gestational diabetes mellitus (GDM) in third trimester documented in this encounter Care Teams Field Identification Specialist Relationship Specialty Start Date End Date Maury Boss DO [address] [facility] [place] [address] PCP - General Family Medicine 03/21/13 documented as of this encounter
--- OUTSIDE RECORDS SUMMARY | 2023-09-13 13:58 | External Medical Summary | Summary of Care ---
Author Name Unknown Organization [facility] Address [address] [place] [address] Phone [phone] Care Team Providers Care Feather Duster Winder Name Role Phone Maury Boss Primary Care Provider Encounter Details Date Type Department Care Team (Late st Contact Info) Description 08/02/2023 Telephone Power House Engineer Obstetrics Maternal Medicine, [place] [address] [place], [place] [phone] [place], Nurse Power House Engineer [facility] [address] [place], [place] [phone] Allergies No known active allergiesdocumented as of this encounter (statuses as of 08/02/2023) Medications Medication Sig Dispensed Refills Start Date [...] as of this encounter (statuses as of 08/02/2023) Active Problems Problem Noted Date Diagnosed Date [...] in her 3rd . Per review of AUTO CLUB TRAVEL COUNSELOR documentation, her blood glucose values have overall [...] as of this encounter (statuses as of 08/02/2023) Resolved Problems Problem Noted Date Diagnosed Date [...] maintain these target values. Report levels to [facility] weekly. 2. Has been provided with glucometer and supplies and instructed on proper use. 3. Recommend clerk manager consult. Lifestyle changes are also indicated [...] poor blood sugar control, please refer to [facility] for consideration of earlier delivery. [...] 06/17/2020 Overview: 2nd baby 9#13, shoulder dystocia [facility] guidelines: early GDM screen, growth [...] as of this encounter (statuses as of 08/02/2023) Immunizations Name Administration Dates Next Due Seasonal [...] money to get more. Never true 02/09/2023 [place] Depression Scale Answer Date Recorded [place] Depression Scale Total 6 06/29/2023 The thought [...] encounter Miscellaneous Notes * Telephone Encounter - Lisa Zamora OSA - 08/02/2023 7:42 AM EDT Phone call to patient. Left message on William's voice mail. Encouraged patient to return call to [facility] to assist with scheduling. * Telephone Encounter [...] 08/11/2023 2:30 PM EDT [facility] [address] [place] [address] Sidra Cleary CRNP [address] [address] 08/23/2023 4:00 PM EDT Office Visit Gynecology/Obstetrics [facility] [address] [place] [address] Ashlee Sewell CNM [address] [place] [address] Health Maintenance Due Date Last Done Comments [...] filedocumented as of this encounter Care Teams Feather Duster Winder Relationship Specialty Start Date End Date Maury Boss DO [address] [facility] [place] [address] PCP - General Family Medicine 03/21/13 documented as of this encounter
--- OUTSIDE RECORDS SUMMARY | 2023-09-13 13:58 | External Medical Summary | Summary of Care ---
Author Name Unknown Organization [facility] Address [address] [facility] [place] [address] Phone [phone] Care Team Providers Care Messenger Copy Name Role Phone EliudMaury hill Primary Care Provider Reason for Visit * Reason Onset Date Comments Appointment 07/24/2023 Encounter Details Date Type Department Care Team (Late st Contact Info) Description 07/24/2023 Telephone Gynecology/Obstetrics [facility] [address] [place] [address] Sidra Cleary CRNP [address] [place] [address] Appointment Allergies No known active allergiesdocumented as of this encounter (statuses as of 07/24/2023) Medications Medication Sig Dispensed Refills Start Date End Date Status Vit-Fe Fumarate-FA ( FORMULA) 28-0.8 MG TABS Take by mouth. 0 Active Breast PumpIndications:Br east feeding status of mother KIM 09/16/23, Z39.1, double electric pump 1 Each 0 06/29/2023 Active Additional Information Patient not taking.Reported on 07/05/2023 BLAZER [employer] FLIP FLOPSTouch Verio Flex System w/Device Kit Use to test blood sugars 4 times daily (fasting, 1 hour after breakfast, lunch, and dinner) 3.21 Each 0 06/29/2023 Active BLAZER [employer] FLIP FLOPSTouch Verio In Vitro Strip (Glucose Blood) Use [...] Stable; diet controlled Last Assessment & Plan: CONSIDERATIONS: Reviewed etiology [...] Recommend nutrition consult with RDN (Registered Dietitian Dentist). Lifestyle changes are also indicated including optimizing [...] units at bedtime with snack. Managed by [facility] Growth q4 weeks NSTs 2x/week Deliver [...] maintain these target values. Report levels to [facility] weekly. 2. Has been provided with glucometer and supplies and instructed on proper use. 3. Recommend armature bander consult. Lifestyle changes are also indicated including [...] poor blood sugar control, please refer to [facility] for consideration of earlier delivery. 7. [...] 06/17/2020 Overview: 2nd baby 9#13, shoulder dystocia [facility] guidelines: early GDM screen, growth u/s [...] money to get more. Never true 02/09/2023 [place] Depression Scale Answer Date Recorded [place] Depression Scale Total 6 06/29/2023 The thought [...] encounter Miscellaneous Notes * Telephone Encounter - Yvette Floyd MED ASSIST - 07/24/2023 12:12 PM EDT Pt rescheduled appt for today 07/23 * Telephone Encounter - Izzy Pantoja OSA - 07/24/2023 11:51 AM EDT Patient is asking if she would be able to keep her appointment on 07/25 but come in at 4pm instead of 3:15pm. Due to her work schedule she is having issues getting out early from work. She can be contacted at [phone]. Thank you documented in this encounter Plan of Treatment Upcoming Encounters Date Type Department Care Team (Late Contact Info) Description 07/24/2023 12:45 PM EDT Office Visit Accordion Tuner Obstetrics Maternal Medicine, [address] [address] Shin Carreon DO [address] [facility] [place] [address] 07/24/2023 12:45 PM EDT Imaging Radiology [facility] [address] [facility] [place] [address] 07/24/2023 4:15 PM EDT Office Visit Gynecology/Obstetrics [facility] [address] [place] [address] Bethel Moeller MD [address] [place] [address] Health Maintenance Due Date Last Done Comments [...] filedocumented as of this encounter Care Teams Messenger Copy Relationship Specialty Start Date End Date Maury Boss DO [address] [facility] [place] [address] PCP - General Family Medicine 03/21/13 documented as of this encounter
--- OUTSIDE RECORDS SUMMARY | 2023-09-13 13:58 | External Medical Summary | Summary of Care ---
Author Name Unknown Organization [facility] Address [address] [place] [address] Phone [phone] Care Team Providers Care Reviewer Sales Name Role Phone Maury Boss Primary Care Provider Reason for Visit * Reason Comments Ultrasound Encounter Details Date Type Department Care Team (Late st Contact Info) Description 07/24/2023 12:45 PM EDT Office Visit Head Of Measurement & Insights Obstetrics Maternal Medicine, [place] [address] [place], [place] [phone] Shin Carreon, [address] [place], [place] [phone] Diet controlled gestational diabetes mellitus (GDM) in third trimester*; History of gestational diabetes in prior , currently ; History of shoulder dystocia in prior , currently ; H/O section; 32 weeks gestation of ; Other specified related conditions, unspecified trimester Allergies No known active allergiesdocumented as [...] in her 3rd . Per review of OYSTER PREPARER documentation, her blood glucose values have overall [...] units at bedtime with snack. Managed by [facility] Growth q4 weeks NSTs 2x/week Deliver [...] maintain these target values. Report levels to [facility] weekly. 2. Has been provided with glucometer and supplies and instructed on proper use. 3. Recommend hospice home health aide consult. Lifestyle changes are also indicated including [...] poor blood sugar control, please refer to [facility] for consideration of earlier delivery. 7. [...] 06/17/2020 Overview: 2nd baby 9#13, shoulder dystocia [facility] guidelines: early GDM screen, growth u/s [...] money to get more. Never true 02/09/2023 [place] Depression Scale Answer Date Recorded [place] Depression Scale Total 6 06/29/2023 The thought [...] as of this encounter Progress Notes * Shin Carreon, DO - 07/24/2023 1:51 PM EDT MATERNAL MEDICINE VISIT William Tucker is at 32w2d who presents to [facility] for an ultrasound and follow- up of her high risk . PHYSICAL EXAM: General: pleasant, alert and oriented, no acute distress She is being seen today by Maternal- Medicine for the following reasons: Problem List Items Addressed This Visit H/O section History of gestational diabetes in prior , currently History of shoulder dystocia in prior , currently GDM (gestational diabetes mellitus) - Primary She presents for an assessment of growth and anatomy secondary to a recent diagnosis of GDM. She has a history of macrosomia and a shoulder dystocia in her 2nd and delivered via in her 3rd . Per review of OYSTER PREPARER documentation, her blood glucose values have overall [...] identify all anomalies, but it is reassuring thatno anomalies were seen today. We reviewed today's ultrasound findings. (For full report, please refer to ultrasound report provided separately). Ms. Tucker's questions were answered to her satisfaction. RECOMMENDATIONS: GDM follow-up care. No follow-up with Maternal Medicine is otherwise necessary unless further questions or indications arise. Thank you for allowing us to participate in the care of this patient. Please call with any questions. Shin Carreon DO 07/24/2023 1:51 PM documented in this encounter Miscellaneous Notes * Assessment & Plan Note - Shin Carreon DO - 07/24/2023 1:36 PM EDT Associated Problem(s): GDM (gestational diabetes mellitus) She presents for an assessment of growth and anatomy secondary to a recent diagnosis of GDM. She has a history of macrosomia and a shoulder dystocia in her 2nd and delivered via in her 3rd . Per review of OYSTER PREPARER documentation, her blood glucose values have overall [...] identify all anomalies, but it is reassuring thatno anomalies were seen today. documented in this encounter Plan of Treatment Upcoming Encounters Date Type Department Care Team (Late st Contact Info) Description 07/24/2023 4:15 PM EDT Office Visit Gynecology/Obstetrics [facility] [address] [place] [address] Bethel Moeller MD [address] [place] [address] Scheduled Orders Name Type Priority Associated Diagnoses Orde r Schedule MFM US PREG FOLLOW UP EACH FETUS Medical Imaging Routine Diet controlled gestational diabetes mellitus (GDM) in third trimester Other specified related conditions, unspecified trimester 1 Occurrences starting 07/24/2023 until 09/16/2023 Health Maintenance Due Date Last Done Comments [...] diabetes mellitus (GDM) in third trimester- Primary History of gestational diabetes in prior , currently with other poor obstetric history History of shoulder dystocia in prior , currently with other poor obstetric history H/O section Other postprocedural status 32 weeks gestation of state, incidental Other specified related conditions, unspecified trimester documented in this encounter Care Teams Reviewer Sales Relationship Specialty Start Date End Date Maury Boss DO [address] [facility] [place] [address] PCP - General Family Medicine 03/21/13 documented as of this encounter
--- OUTSIDE RECORDS SUMMARY | 2023-09-13 13:58 | External Medical Summary | Summary of Care ---
Author Name Unknown Organization [facility] Address [address] [place] [address] Phone [phone] Care Team Providers Care Studio Coordinator Name Role Phone Maury Boss DO Primary Care Provider Reason for Visit * Reason Onset Date Comments Home Monitoring Orders Only 07/06/2023 Encounter Details Date Type Department Care Team ([facility] st Contact Info) Description 07/06/2023 Home Monitoring Care Coordination [address] [place] [address] Madeline Mack CRNP [address] [place] [address] GDM (gestational diabetes mellitus)* Allergies No known active allergiesdocumented as of this encounter (statuses as of 07/06/2023) Medications Medication Sig Dispensed Refills Start Date [...] as of this encounter (statuses as of 07/06/2023) Active Problems Problem Noted Date Diagnosed Date [...] Recommend nutrition consult with RDN (Registered Dietitian Senior Construction Project Manager). Lifestyle changes are also indicated including optimizing [...] as of this encounter (statuses as of 07/06/2023) Resolved Problems Problem Noted Date Diagnosed Date Resolved Date presentation, breech 03/30/2020 0 04/15/2020 Overview: For C/S 04/21 Vertex on 04/15/20 Insulin controlled gestation al diabetes mellitus (GDM) in third trimester 01/28/20202020 Overview: As of 03/30/20: NPH 51 units with breakfast meal and 28 units at bedtime with snack. Managed by [facility] Growth q4 weeks NSTs 2x/week Deliver by [...] maintain these target values. Report levels to [facility] weekly. 2. Has been provided with glucometer and supplies and instructed on proper use. 3. Recommend rehabilitation center manager consult. Lifestyle changes are also indicated [...] poor blood sugar control, please refer to [facility] for consideration of earlier delivery. 7. Recommend [...] 06/17/2020 Overview: 2nd baby 9#13, shoulder dystocia [facility] guidelines: early GDM screen, growth u/s at [...] as of this encounter (statuses as of 07/06/2023) Immunizations Name Administration Dates Next Due Seasonal [...] money to get more. Never true 02/09/2023 [place] Depression Scale Answer Date Recorded [place] Depression Scale Total 6 06/29/2023 The thought [...] as of this encounter Progress Notes * Aditya Mor[facility] Gear Hobber Operator - 07/06/2023 3:19 PM EDT Patient has been successfully enrolled to the [id number] Diabetes Management in program. Standard alarm settings have been set as follows: Singular glucose level > 200 Singular glucose level < 60 Patient has been advised to take blood sugar four times a day (fasting upon waking, and one hour after each meal). Patient has been oriented to remote patient monitoring, assisted with initial device set-up, and provided with instruction and education regarding the program. Patient understands that this monitoring should not be used as a replacement for emergency and/or urgent care. If patient experiences any urgent symptoms, they are aware to call office/monitor technician provider for additional instructions. In emergency situations, they will report directly to the ED for further evaluation. If you would like to customize the alert parameters and/or instructions for this patient, please let me know and we can have them changed. documented in this encounter Plan of Treatment Upcoming Encounters Date Type Department Care Team (Late st Contact Info) Description 07/10/2023 4:30 PM EDT Office Visit Gynecology/Obstetrics Kwadwo Mondragon [address] [address] Marielle Mae PA-C [address] [address] 07/24/2023 12:45 PM EDT Office Visit Basin Finish Operator Tig Welder Obstetrics Maternal Medicine, [place] [address] [place] [address] Shin Carreon [address] [place] [address] 07/24/2023 12:45 PM EDT Imaging Radiology [facility], [place] [address] [place], [place] [phone] Health Maintenance Due Date Last Done Comments [...] as of this encounter Visit Diagnoses Diagnosis GDM (gestational diabetes mellitus)- Primary Abnormal maternal glucose tolerance, complicating , childbirth, or the puerperium, unspecified as to episode of care documented in this encounter Care Teams Studio Coordinator Relationship Specialty Start Date End Date Maury Boss DO [address] [facility] [place] [address] PCP - General Family Medicine 03/21/13 documented as of this encounter
--- OUTSIDE RECORDS SUMMARY | 2023-09-13 13:59 | External Medical Summary | Summary of Care ---
Author Name Unknown Organization [facility] Address [address] [place] [address] Phone [phone] Care Team Providers Care Associate Store Director Name Role Phone Maury Boss Primary Care Provider Reason for Visit * Reason Onset Date Comments Referral 06/29/2023 Encounter Details Date Type Department Care Team (Late st Contact Info) Description 06/29/2023 Telephone Hatch Boss Obstetrics Maternal Medicine, [place] [address] [place], [place] [phone] [place], Nurse [facility] [address] [place] [address] Referral Allergies No known active allergiesdocumented as of this encounter (statuses as of 07/03/2023) Medications Medication Sig Dispensed Refills Start Date End Date Status Vit-Fe Fumarate-FA ( FORMULA) 28-0.8 MG TABS Take by mouth. 0 Active Breast PumpIndications:Br east feeding status of mother KIM 09/16/23, Z39.1, double electric pump 1 Each 0 06/29/2023 Active OneTouch Verio Flex System w/Device Kit Use [...] as instructed 642.86 Each 6 06/29/2023 Active documented as of this encounter (statuses [...] maintain these target values. Report levels to [facility] weekly. 2. Has been provided with glucometer and supplies and instructed on proper use. 3. Recommend wire threader consult. Lifestyle changes are also indicated including [...] money to get more. Never true 02/09/2023 Carey Depression Scale Answer Date Recorded Carey Depression Scale Total 6 06/29/2023 The thought [...] encounter Miscellaneous Notes * Telephone Encounter - Genny Reilly RN - 07/03/2023 9:12 AM EDT Spoke with pt. She has decided to do the initial visit with [facility]. We discussed the importance of getting their recommendations which will allow follow up care to be done locally. She is aware that if they recommend something that can not be done here, she would need to go to [place] for that. Pt isagreeable and will call them back to schedule. * Telephone Encounter - Lisa Zamora OSA - 07/03/2023 9:07 AM EDT Patient refused to schedule appointment. I encouraged her to speak with her OB * Telephone Encounter - Shanna Mackay OSA - 07/03/2023 8:29 AM EDT Phone call to patient. Left message on [employer]'s voice mail. Encouraged patient to return call to [facility] to assist with scheduling. * Telephone Encounter - Lisa Zamora OSA - 06/29/2023 2:35 PM EDT Phone call to patient. Left message on [employer] voice mail. Encouraged patient to return call to [facility] to assist with scheduling. Also sent My[employer] message. * Telephone Encounter - Genny Fisher CCMA - 06/29/2023 2:29 PM EDT Estimated Date of Delivery: 09/16/23 Please schedule for 45 MINUTE ADAPT WITH BUSINESS OPERATIONS CONSULTANT, in time frame of within 1 week at location [facility] with the indication of GDM. Please schedule anatomy within 2-3 weeks. Referring Provider: Nallely Brady CNM documented in this encounter Plan of Treatment Upcoming Encounters Date Type Department Care Team (Late st Contact Info) Description 07/05/2023 1:45 PM EDT Telemedicine Hatch Boss Obstetrics Maternal Medicine, [address] [address] Madeline Mack CRNP [address] [place] [address] 07/10/2023 4:30 PM EDT Office Visit Gynecology/Obstetrics [facility] [address] [place] [address] Marielle Mae PA-C [address] [place] [address] 07/24/2023 12:45 PM EDT Office Visit Hatch Boss Obstetrics Maternal Medicine, [place] [address] [place], [place] [phone] Shin Carreon DO [address] [place] [address] 07/24/2023 12:45 PM EDT Imaging Radiology [facility], [place] [address] [place], [place] [phone] Health Maintenance Due Date Last Done Comments [...] filedocumented as of this encounter Care Teams Associate Store Director Relationship Specialty Start Date End Date Maury Boss DO [address] [address] PCP - General Family Medicine 03/21/13 documented as of this encounter
--- OUTSIDE RECORDS SUMMARY | 2023-09-13 13:59 | External Medical Summary | Summary of Care ---
Author Name Unknown Organization [facility] Address [address] [place] [address] Phone [phone] Care Team Providers Care Machinist Name Role Phone Maury Boss Primary Care Provider Encounter Details Date Type Department Care Team (Late st Contact Info) Description 06/29/2023 Telephone Gynecology/Obstetrics [facility] [address] [place] [address] Nallely Brady CNM [address] [place] [address] Allergies No known active allergiesdocumented as of this encounter (statuses as of 06/30/2023) Medications Medication Sig Dispensed Refills Start Date End Date Status Vit-Fe Fumarate-FA ( FORMULA) 28-0.8 MG TABS Take by mouth. 0 Active Breast PumpIndications:Br east feeding status of mother KIM 09/16/23, Z39.1, double electric pump 1 Each 0 06/29/2023 Active Harmony Information SystemsTouch Verio Flex System w/Device Kit Use to [...] as of this encounter (statuses as of 06/30/2023) Active Problems Problem Noted Date Diagnosed Date [...] as of this encounter (statuses as of 06/30/2023) Resolved Problems Problem Noted Date Diagnosed Date [...] maintain these target values. Report levels to [facility] weekly. 2. Has been provided with glucometer and supplies and instructed on proper use. 3. Recommend core feeder consult. Lifestyle changes are also indicated including [...] poor blood sugar control, please refer to [facility] for consideration of earlier delivery. [...] 06/17/2020 Overview: 2nd baby 9#13, shoulder dystocia [facility] guidelines: early GDM screen, growth [...] as of this encounter (statuses as of 06/30/2023) Immunizations Name Administration Dates Next Due Seasonal [...] money to get more. Never true 02/09/2023 Vancle[place] Depression Scale Answer Date Recorded Vancleve Depression Scale Total 6 06/29/2023 The thought [...] encounter Miscellaneous Notes * Telephone Encounter - Bolivar Mckeon OSA - 06/29/2023 11:50 AM EDT Please assist in scheduling pt with Diabetic management. documented in this encounter Plan of Treatment Upcoming Encounters Date Type Department Care Team (Late st Contact Info) Description 07/10/2023 4:30 PM EDT Office Visit Gynecology/Obstetrics [facility] [address] [place] [address] Marielle Mae PA-C [address] [place] [address] Health Maintenance Due Date Last Done Comments [...] filedocumented as of this encounter Care Teams Machinist Relationship Specialty Start Date End Date Maury Boss DO [address] [address] PCP - General Family Medicine 03/21/13 documented as of this encounter
--- OUTSIDE RECORDS SUMMARY | 2023-09-13 13:59 | External Medical Summary | Summary of Care ---
Author Name Unknown Organization [facility] Address [address] [place] [address] Phone [phone] Care Team Providers Care Special Agent In Charge Name Role Phone Maury Boss Primary Care Provider Encounter Details Date Type Department Care Team (Late st Contact Info) Description 07/03/2023 Orders Only Gynecology/Obstetrics [facility] [address] [place] [address] Nallely Brady CNM [address] [place] [address] Allergies No known active allergiesdocumented as of this encounter (statuses as of 07/03/2023) Medications Medication Sig Dispensed Refills Start Date End Date Status Vit-Fe Fumarate-FA ( FORMULA) 28-0.8 MG TABS Take by mouth. 0 Active Breast PumpIndications:Br east feeding status of mother KIM 09/16/23, Z39.1, double electric pump 1 Each 0 06/29/2023 Active Events CoreTouch Verio Flex System w/Device Kit Use to [...] maintain these target values. Report levels to [facility] weekly. 2. Has been provided with glucometer and supplies and instructed on proper use. 3. Recommend rn visiting consult. Lifestyle changes are also indicated including [...] poor blood sugar control, please refer to [facility] for consideration of earlier delivery. [...] 06/17/2020 Overview: 2nd baby 9#13, shoulder dystocia [facility] guidelines: early GDM screen, growth [...] money to get more. Never true 02/09/2023 Wallace Depression Scale Answer Date Recorded Wallace Depression Scale Total 6 06/29/2023 The thought [...] on file documented as of this encounter Plan of Treatment Upcoming Encounters Date Type Department Care Team (Late st Contact Info) Description 07/05/2023 1:45 PM EDT Telemedicine Boilermaker Apprentice Obstetrics Maternal Medicine, [place] [address] [facility] [address] [place] [address] Madeline Mack CRNP [address] [place] [address] 07/10/2023 4:30 PM EDT Office Visit Gynecology/Obstetrics [facility] [address] [place] [address] Marielle Mae PA-C [address] [place] [address] 07/24/2023 12:45 PM EDT Office Visit Boilermaker Apprentice Obstetrics Maternal Medicine, [place] [address] [place], [place] [phone] Shin Carreon, [address] [place] [address] 07/24/2023 12:45 PM EDT Imaging Radiology [facility], [place] [address] [place], [place] [phone] Health Maintenance Due Date Last Done Comments [...] filedocumented as of this encounter Care Teams Special Agent In Charge Relationship Specialty Start Date End Date Maury Boss DO [address] [facility] [place] [place] [address] PCP - General Family Medicine 03/21/13 documented as of this encounter
--- OUTSIDE RECORDS SUMMARY | 2023-09-13 13:59 | External Medical Summary | Summary of Care ---
Author Name Unknown Organization [facility] Address [address] [facility] [place] [address] Phone [phone] Care Team Providers Care Director Of Home Economics Name Role Phone Maury Boss Primary Care Provider Reason for Visit * Reason Comments Return Visit Encounter Details Date Type Department Care Team (Late st Contact Info) Description 06/29/2023 9:15 AM EDT Office Visit Gynecology/Obstetric s [facility] [address] [place] [address] BackerTrinh CRNP [address] [place] [address] Encounter for supervision of other normal in third trimester*; H/O section; History of gestational diabetes in prior , currently ; History of shoulder dystocia in prior , currently ; Need for prophylactic vaccination with combined xzbxbkyacy-jmbihss-hz rtussis (DTP) vaccine; Breast feeding status of mother Allergies No known active allergiesdocumented as of this encounter (statuses as of 06/30/2023) Medications Medication Sig Dispensed Refills Start Date End Date Status Vit-Fe Fumarate-FA ( FORMULA) 28-0.8 MG TABS Take by mouth. 0 Active Breast PumpIndications:Breas t feeding status of mother KIM 09/16/23, Z39.1, double electric pump 1 Each 0 06/29/2023 Active documented as of this encounter [...] and instructed on proper use. 3. Recommend c developer consult. Lifestyle changes are also indicated including [...] blood sugar control, please refer to [facility] for consideration of earlier delivery. [...] Overview: 2nd baby 9#13, shoulder dystocia [facility] guidelines: early GDM screen, growth u/s at 36-37 weeks History of shoulder dystocia in prior 12/11/2019 06/17/2020 Overview: Pt WANTS c/sec Short interval between pregn ancies complicating , antepartum 12/11/2019 03/10 /2021 Overview: Last baby delivered 08/2018 Chronic tension-type [...] money to get more. Never true 02/09/2023 [place] Depression Scale Answer Date Recorded [place] Depression Scale Total 6 06/29/2023 The thought [...] Sign Reading Time Taken Comments Blood Pressure 116/60 06/29/2023 9:06 AM EDT Pulse - - Temperature - - Respiratory Rate - - Oxygen Saturation - - Inhaled Oxygen Concentration - - Weight 86.6 kg (191 lb) 06/29/2023 9:06 AM EDT Height - - Body Mass Index 31.78 06/01/2023 3:45 PM EST documented in this encounter Progress Notes * Sandy Stevenson LPN - 06/29/2023 9:06 AM EDT 28w5d Denies vaginal bleeding/rom + movement Tdap today 3 hr gtt today ? When to schedule repeat c/s * Trinh Abernathy CRNP - 06/29/2023 8:58 AM EDT 28w5d Feels well, good movement. Discussed [facility] and when to call. No cramping/bleeding/leaking. Desires bilateral salpingectomy w/delivery. Per Uma, OR schedules not open for September. Will send her a message to schedule delivery. Breastpump rx to nursing. Completing labs, including 3 hr GTT, today. Accepts Tdap. 2 week return NEGRITA [place] documented in this encounter Nursing Notes * Sandy Stevenson LPN - 06/29/2023 9:25 AM EDT Patient here for tdap injection. Patient doing well no complaints. Injection given IM as ordered. Patient tolerated well. Patient to follow up as directed. Patient instructed to call if any complications. Patient verbalized understanding of instructions given. Injection site: Right Deltoid Medication Source: Dispensed stock medication documented in this encounter Plan of Treatment Upcoming Encounters Date Type Department Care Team (Late st Contact Info) Description 07/10/2023 4:30 PM EDT Office Visit Gynecology/Obstetrics Kwadwo Mondragon [address] [place] [address] Marielle Mae PA-C [address] [place] [address] Health Maintenance Due Date Last Done Comments [...] , currently with other poor obstetric history Need for prophylactic vaccination with combined amwarmmlxr-lmsomff-dpunbnoib (DTP) vaccine Breast feeding status of mother care and examination of lactating mother documented in this encounter Care Teams Director Of Home Economics Relationship Specialty Start Date End Date Maury Boss DO [address] [facility] [place] [address] PCP - General Family Medicine 03/21/13 documented as of this encounter
--- OUTSIDE RECORDS SUMMARY | 2023-09-13 13:59 | External Medical Summary | Summary of Care ---
Author Name Unknown Organization [facility] Address [address] [facility] [place] [address] Phone [phone] Care Team Providers Care Tablet Machine Operator Name Role Phone EliudMaury hill Primary Care Provider Encounter Details Date Type Department Care Team (Late st Contact Info) Description 07/03/2023 Telephone Gynecology/Obstetrics, [place] [address] [facility] [place] [address] Nallely Brady CNM [address] [place] [address] Allergies No known active allergiesdocumented as of this encounter (statuses as of 07/03/2023) Medications Medication Sig Dispensed Refills Start Date End Date Status Vit-Fe Fumarate-FA ( FORMULA) 28-0.8 MG TABS Take by mouth. 0 Active Breast PumpIndications:Br east feeding status of mother KIM 09/16/23, Z39.1, double electric pump 1 Each 0 06/29/2023 Active Archive Systemsio Flex System w/Device Kit Use to test blood sugars 4 times daily (fasting, 1 hour after breakfast, lunch, and dinner) 3.21 Each 0 06/29/2023 Active ePantryuch Verio In Vitro Strip (Glucose Blood) Use [...] maintain these target values. Report levels to [facility] weekly. 2. Has been provided with glucometer and supplies and instructed on proper use. 3. Recommend nurse college consult. Lifestyle changes are also indicated including [...] poor blood sugar control, please refer to [facility] for consideration of earlier delivery. 7. Recommend [...] 06/17/2020 Overview: 2nd baby 9#13, shoulder dystocia [facility] guidelines: early GDM screen, growth u/s at [...] money to get more. Never true 02/09/2023 Elliott Depression Scale Answer Date Recorded Elliott Depression Scale Total 6 06/29/2023 The thought [...] Info) Description 07/05/2023 1:45 PM EDT Telemedicine Maintenance Services Dispatcher Obstetrics Maternal Medicine, [address] [address] Madeline Mack CRNP [address] [place] [address] 07/10/2023 4:30 PM EDT [facility] [address] [facility] [place] [address] Marielle Mae PA-C [address] [place] [address] 07/24/2023 12:45 PM EDT Office Visit Maintenance Services Dispatcher Obstetrics Maternal Medicine, [place] [address] [place] [address] Shin Carreon, [address] [place] [address] 07/24/2023 12:45 PM EDT Imaging Radiology [facility], [place] [address] [place], [place] [phone] Health Maintenance Due Date Last Done Comments [...] filedocumented as of this encounter Care Teams Tablet Machine Operator Relationship Specialty Start Date End Date GeraMaury DO Ryder [address] [address] PCP - General Family Medicine 03/21/13 documented as of this encounter
--- OUTSIDE RECORDS SUMMARY | 2023-09-13 14:00 | External Medical Summary ---
Author Name Unknown Address Unknown Organization K0G[facility] [address] - [address] [place] [address] Laboratory Report Ordering Provider Test Date Status TITA HAYWARD 06/29/2023 07:12:32 Final Based on ACOG guideline, ges tational diabetes mellitus is diagnosed when any of the following is met:
Fasting is greater than or equal to 95 mg/dL
1 hour is greater than or equal to 180 mg/dL
2 hour is greater than or equal to 155 mg/dL
3 hour is greater than or equal to 140 mg/dL Observation Date Value Abnormality Reference (Units ) Status Glucose, fasting 06/29/2023 07:12:32 93 70- 94 (mg/dL) Final Performing Location [facility] - [address] [place] [address]
--- OUTSIDE RECORDS SUMMARY | 2023-09-13 14:00 | External Medical Summary ---
Author Name Unknown Address Unknown Organization K01:[facility] - [address] [place] [address] Laboratory Report Ordering Provider Test Date Status TITA HAYWARD 06/29/2023 07:12:32 Final Observation Date Value Abnormality Reference (Units ) Status Folic Acid 06/29/2023 07:12:32 13.5 >4.5 (ng/ mL) Final Performing Location [facility] - [address] [place] [address]
--- OUTSIDE RECORDS SUMMARY | 2023-09-13 14:00 | External Medical Summary | Summary of Care ---
Author Name Unknown Organization [facility] Address [address] [facility] [place] [address] Phone [phone] Care Team Providers Care Mold Filler And Drainer Name Role Phone Maury Boss Primary Care Provider Reason for Visit * Reason Comments Return Visit Encounter Details Date Type Department Care Team (Late st Contact Info) Description 06/29/2023 9:15 AM EDT [facility] [address] [place] [address] BackerTrinh CRNP [address] [place] [address] Encounter for supervision of other normal in third trimester*; H/O section; History of gestational diabetes in prior , currently ; History of shoulder dystocia in prior , currently ; Need for prophylactic vaccination with combined qbhqmncgdk-zboxtwp-hn rtussis (DTP) vaccine; Breast feeding status of mother Allergies No known active allergiesdocumented as of this encounter (statuses as of 06/29/2023) Medications Medication Sig Dispensed Refills Start Date End Date Status Vit-Fe Fumarate-FA ( FORMULA) 28-0.8 MG TABS Take by mouth. 0 Active Breast PumpIndications:Breas t feeding status of mother KIM 09/16/23, Z39.1, double electric pump 1 Each 0 06/29/2023 Active documented as of this encounter (statuses as of 06/29/2023) Active Problems Problem Noted Date Diagnosed Date History of shoulder dystocia in prior , [...] as of this encounter (statuses as of 06/29/2023) Resolved Problems Problem Noted Date Diagnosed Date [...] and instructed on proper use. 3. Recommend countersinker balance screw hole consult. Lifestyle changes are also indicated including [...] as of this encounter (statuses as of 06/29/2023) Immunizations Name Administration Dates Next Due Seasonal [...] money to get more. Never true 02/09/2023 [place] Depression Scale Answer Date Recorded [place] Depression Scale Total 6 06/29/2023 The thought [...] Kwadwo Mondragon [address] [place] [address] Marielle Mae PA-C [address] [place] [address] Health Maintenance Due Date Last Done Comments [...] history Need for prophylactic vaccination with combined siqlxcvepu-daczshh-xffxaxtds (DTP) vaccine Breast feeding status of mother care and examination of lactating mother documented in this encounter Care Teams Mold Filler And Drainer Relationship Specialty Start Date End Date Maury Boss DO [address] [facility] [place] [address] PCP - General Family Medicine 03/21/13 documented as of this encounter
--- OUTSIDE RECORDS SUMMARY | 2023-09-13 14:00 | External Medical Summary ---
Author Name Unknown Address Unknown Organization [id number]:LABORATORY [facility] 57-[address] - [address] [place] [address] Laboratory Report Ordering Provider Test Date Status TITA HAYWARD 06/29/2023 08:14:17 Final Observation Date Value Abnormality Reference (Units ) Status Glucose [Mass/volume] in Serum or Plasma --1 hour post dose glucose 06/29/2023 08:14:17 212 Above high normal 70-179 (mg/dL) Final Performing Location LABORATORY [facility] 57-[address] 0 - [address] [place] [address]
--- OUTSIDE RECORDS SUMMARY | 2023-09-13 14:00 | External Medical Summary ---
Author Name Unknown Address Unknown Organization [id number]:LABORATORY [facility] [address] - [address] [place] [address] Laboratory Report Ordering Provider Test Date Status TITA HAYWARD 06/29/2023 10:14:05 Final Observation Date Value Abnormality Reference (Units ) Status Glucose [Mass/volume] in Serum or Plasma --3 hours post dose glucose 06/29/2023 10:14:05 102 70-139 (mg/dL) Final Performing Location LAB[facility]ATORY [facility] 57-[address] - [address] [place] [address]
--- OUTSIDE RECORDS SUMMARY | 2023-09-13 14:00 | External Medical Summary | Summary of Care ---
Author Name Unknown Organization [facility] Address [address] [facility] [place] [address] Phone [phone] Care Team Providers Care Supervisor Soldering Name Role Phone EliudMaury hill Primary Care Provider Reason for Visit * Reason Comments Outpatient Testing Encounter Details Date Type Department Care Team (Late st Contact Info) Description 06/29/2023 7:00 AM EDT Laboratory Laboratory, [facility] 132 [facility] [place] [phone] [facility] [address] [place] [address] Supervision of other normal , antepartum Allergies No known active allergiesdocumented as of this encounter (statuses as of 06/29/2023) Medications Medication Sig Dispensed Refills Start Date End Date Status Vit-Fe Fumarate-FA ( FORMULA) 28-0.8 MG TABS Take by mouth. 0 Active documented as of this encounter (statuses [...] maintain these target values. Report levels to [facility] weekly. 2. Has been provided with glucometer and supplies and instructed on proper use. 3. Recommend purse seiner consult. Lifestyle changes are also indicated including [...] poor blood sugar control, please refer to [facility] for consideration of earlier delivery. 7. Recommend [...] 06/17/2020 Overview: 2nd baby 9#13, shoulder dystocia [facility] guidelines: early GDM screen, growth u/s at [...] money to get more. Never true 02/09/2023 [place] Depression Scale Answer Date Recorded [place] Depression Scale Total 6 06/29/2023 The thought [...] Visit Gynecology/Obstetrics Kwadwo Mondragon [address] [place] [address] Marielle Mae PA-C [address] [place] [address] Pending Results Name Type Priority Associated Diagnoses Date /Time CBC WITH WBC DIFFERENTIAL AND ANEMIA REFLEX WORKUP Lab Routine Supervision of other normal , antepartum 06/29/2023 7:12 AM EDT SYPHILIS ANTIBODY SCREEN WITH REFLEX TO RPR Lab Routine Supervision of other normal , antepartum 06/29/2023 7:12 AM EDT GESTATIONAL GLUCOSE TOLERANCE, 3 HOUR Lab Routine Supervision of other normal , antepartum 06/29/2023 7:12 AM EDT ANEMIA CBC Lab Routine Supervision of other normal , antepartum 06/29/2023 7:12 AM EDT DIFFERENTIAL, AUTOMATED Lab Routine Supervision of other normal , antepartum 06/29/2023 7:12 AM EDT ANEMIA REFLEX CHEMISTRY HOLD Lab Routine Supervision of other normal , antepartum 06/29/2023 7:12 AM EDT SYPHILIS ANTIBODY SCREEN Lab Routine Supervision of other normal , antepartum 06/29/2023 7:12 AM EDT 100-G GESTATIONAL GLUCOSE, 3 HOUR Lab Routine Supervision of other normal , antepartum 06/29/2023 10:14 AM EDT Health Maintenance Due Date Last Done [...] Not on filedocumented as of this encounter Procedures Procedure Name Priority Date/Time Associated Diagnosis Comments 100-G GESTATIONAL GLUCOSE, 2 HOUR Routine 06/29/2023 9:19 AM EDT Supervision of other normal , antepartum 100-G GESTATIONAL GLUCOSE, 1 HOUR Routine 06/29/2023 8:14 AM EDT Supervision of other normal , antepartum 100-G GESTATIONAL GLUCOSE, FASTING Routine 06/29/2023 7:12 AM EDT Supervision of other normal , antepartum documented in this encounter Results * (ABNORMAL) 100-G GESTATIONAL GLUCOSE, 2 HOUR (06/29/2023 9:19 AM EDT) 100-g Gestational Glucose, 2 Hour 194(H) 70 - 154 mg/dL 06/29/2023 10:01 AM EDT [facility] [place] [facility]10 Blood Venous blood specimen / Unknown Venipuncture / Unknown 06/29/2023 9:19 AM EDT 06/29/2023 9:19 AM EDT Nallely TRAN LAB BLOOD ORDERABLES [facility] [place] [facility] [id number] * (ABNORMAL) 100-G GESTATIONAL GLUCOSE, 1 HOUR (06/29/2023 8:14 AM EDT) 100-g Gestational Glucose, 1 Hour 212(H) 70 - 179 mg/dL 06/29/2023 9:47 AM EDT [facility] [place] [facility] 57-10 Blood Venous blood specimen / Unknown Venipuncture / Unknown 06/29/2023 8:14 AM EDT 06/29/2023 8:14 AM EDT Nallely TRAN LAB BLOOD ORDERABLES [facility] [place] [facility] 57-[address] [place] [address] * 100-G GESTATIONAL GLUCOSE, FASTING (06/29/2023 7:12 AM EDT) 100-g Gestational Glucose, Fasting 93 70 - 94 mg/dL 06/29/2023 8:33 AM EDT LABORATORY [facility] 57-10 Blood Venous blood specimen / Unknown Venipuncture / Unknown 06/29/2023 7:12 AM EDT 06/29/2023 7:12 AM EDT Narrative LAB[facility]ATORY [facility] 57-10 - 06/29/2023 8:33 AM EDT Based on ACOG guideline, gestational diabetes mellitus is diagnosed when any of the following is met: Fasting is greater than or equal to 95 mg/dL 1 hour is greater than or equal to 180 mg/dL 2 hour is greater than or equal to 155 mg/dL 3 hour is greater than or equal to 140 mg/dL Nallely TRAN LAB BLOOD ORDERABLES [facility] 57-[address] [place] [address] documented in this encounter Visit Diagnoses Diagnosis Supervision of other normal , antepartum documented in this encounter Care Teams Supervisor Soldering Relationship Specialty Start Date End Date Maury Boss DO [address] [facility] [place] [address] PCP - General Family Medicine 03/21/13 documented as of this encounter
--- OUTSIDE RECORDS SUMMARY | 2023-09-13 14:00 | External Medical Summary ---
Author Name Unknown Address Unknown Organization [id number]:LABORATORY [facility] - [facility] [address] [facility] [address] [place] [address] Laboratory Report Ordering Provider Test Date Status TITA HAYWARD 06/29/2023 07:12:32 Final Observation Date Value Abnormality Reference (Units ) Status Creatinine 06/29/2023 07:12:32 0.5 0.5-1.0 (mg/dL) Final Glomerular filtration rate/1.73 sq M.predicted [Volume Rate/Area] in Serum, Plasma or Blood by Creatinine-based formula (CKD-EPI) 06/29/2023 07:12:32 >90 >=60 (mL/min) Final eGFR is calculated based on the CKD-EPI 2020 equation Performing Location LABORATORY [facility] - [address] [place] [address]
--- OUTSIDE RECORDS SUMMARY | 2023-09-13 14:00 | External Medical Summary ---
Author Name Unknown Address Unknown Organization [id number]:[facility] - [address] [place] [address] Laboratory Report Ordering Provider Test Date Status TITA HAYWARD 06/29/2023 07:12:32 Final Observation Date Value Abnormality Reference (Units ) Status Vitamin B12 06/29/2023 07:12:32 688 974-1954 (pg/mL) Final Performing Location [facility] - [address] [place] [address]
--- OUTSIDE RECORDS SUMMARY | 2023-09-13 14:00 | External Medical Summary | Summary of Care ---
Author Name Unknown Organization [facility] Address [address] [facility] [place] [address] Phone [phone] Care Team Providers Care User Support Specialist Name Role Phone Maury Boss Primary Care Provider Encounter Details Date Type Department Care Team (Late st Contact Info) Description 06/29/2023 Telephone Gynecology/Obstetrics [facility] [address] [facility] [place] [address] Nallely Brady CNM [address] [facility] [place] [address] Allergies No known active allergiesdocumented as of this encounter (statuses as of 06/29/2023) Medications Medication Sig Dispensed Refills Start Date End Date Status Vit-Fe Fumarate-FA ( FORMULA) 28-0.8 MG TABS Take by mouth. 0 Active Breast PumpIndications:Br east feeding status of mother KIM 09/16/23, Z39.1, double electric pump 1 Each 0 06/29/2023 Active Spodly Verio Flex System w/Device Kit Use to test blood sugars 4 times daily (fasting, 1 hour after breakfast, lunch, and dinner) 3.21 Each 0 06/29/2023 Active Cloud DynamicsTouch Verio In Vitro Strip (Glucose Blood) Use [...] and instructed on proper use. 3. Recommend coagulating drying supervisor consult. Lifestyle changes are also indicated [...] money to get more. Never true 02/09/2023 [place] Depression Scale Answer Date Recorded [place] Depression Scale Total 6 06/29/2023 The thought [...] Telephone Encounter - Codi Cadena RN - 06/29/2023 11:59 AM EDT ----- Message from Nallely Brady CNM sent at 06/29/2023 11:41 AM EDT ----- Please let the patient know that her 3hr glucose is positive for gestational diabetes. I put a consult in to diabetes management and sent supplies to her pharmacy. She will need to begin checking herblood sugar every morning and one hour after each meal. documented in this encounter Plan of Treatment Upcoming Encounters Date Type Department Care Team (Late st Contact Info) Description 07/10/2023 4:30 PM EDT Office Visit Gynecology/Obstetrics Turnereric Mondragon [address] [place] [address] Marielle Mae PA-C [address] [place] [address] Health Maintenance Due Date Last Done Comments [...] filedocumented as of this encounter Care Teams User Support Specialist Relationship Specialty Start Date End Date Maury Boss DO [address] [facility] [place] [address] PCP - General Family Medicine 03/21/13 documented as of this encounter
--- OUTSIDE RECORDS SUMMARY | 2023-09-13 14:00 | External Medical Summary ---
Author Name Unknown Address Unknown Organization K01:[facility] [place] [address] [facility] [address] [place] [address] Laboratory Report Ordering Provider Test Date Status TITA HAYWARD 06/29/2023 07:12:32 Final Observation Date Value Abnormality Reference (Units ) Status Iron 06/29/2023 07:12:32 46 33-151 (ug/dL) Final Iron-binding capacity 06/29/2023 07:12:32 423 250-425 (ug/dL) Final Transferrin Sat % 06/29/2023 07:12:32 11 Below low normal 15-55 (%) Final Performing Location [facility] - [address] [place] [address]
--- OUTSIDE RECORDS SUMMARY | 2023-09-13 14:00 | External Medical Summary | Summary of Care ---
Author Name Unknown Organization [facility] Address [address] [facility] [place] [address] Phone [phone] Care Team Providers Care Property Consultant Name Role Phone Maury Boss Primary Care Provider Encounter Details Date Type Department Care Team (Late st Contact Info) Description 06/29/2023 Telephone Gynecology/Obstetrics [facility] 132 [facility] [place] [address] Nallely Brady CNM [address] [facility] [place] [address] Allergies No known active allergiesdocumented as of this encounter (statuses as of 06/29/2023) Medications Medication Sig Dispensed Refills Start Date End Date Status Vit-Fe Fumarate-FA ( FORMULA) 28-0.8 MG TABS Take by mouth. 0 Active Breast PumpIndications:Br east feeding status of mother KIM 09/16/23, Z39.1, double electric pump 1 Each 0 06/29/2023 Active HoozOn Verio Flex System w/Device Kit Use to test blood sugars 4 times daily (fasting, 1 hour after breakfast, lunch, and dinner) 3.21 Each 0 06/29/2023 Active KypTouch Verio In Vitro Strip (Glucose Blood) Use [...] maintain these target values. Report levels to [facility] weekly. 2. Has been provided with glucometer and supplies and instructed on proper use. 3. Recommend dial brusher consult. Lifestyle changes are also indicated including [...] poor blood sugar control, please refer to [facility] for consideration of earlier delivery. 7. [...] 06/17/2020 Overview: 2nd baby 9#13, shoulder dystocia [facility] guidelines: early GDM screen, growth u/s [...] money to get more. Never true 02/09/2023 [place] Depression Scale Answer Date Recorded [place] Depression Scale Total 6 06/29/2023 The thought [...] encounter Miscellaneous Notes * Telephone Encounter - Marlene Chung LPN - 06/29/2023 12:59 PM EDT left message for patient to call office * Telephone Encounter - Codi Cadena RN [...] Gynecology/Obstetrics Kwadwo Mondragon [address] [place] [address] Marielle Mae PA-C [address] [place] [address] Health Maintenance Due Date Last Done Comments [...] filedocumented as of this encounter Care Teams Property Consultant Relationship Specialty Start Date End Date Maury Boss DO [address] [facility] [place] [address] PCP - General Family Medicine 03/21/13 documented as of this encounter
--- OUTSIDE RECORDS SUMMARY | 2023-09-13 14:00 | External Medical Summary | Summary of Care ---
Author Name Unknown Organization [facility] Address [address] [place] [address] Phone [phone] Care Team Providers Care Pipe And Tank Fabricator Name Role Phone Maury Boss Primary Care Provider Reason for Referral * Evaluate & Treat - Unlimited Visits (Within 10 days (routine)) - Pending Review Specialty Diagnoses / Procedures Referred By Aris mayen Referred To Contact Electro Mechanical Solar Technician / Nutrition Services Diagnoses Gestational diabetes mellitus (GDM) in third trimester, gestational diabetes method of control unspecified Nallely Brady CNM [address] [place] [address] Referral ID Status Reason Start Date Expiration Date Visits Requested Visits Authorized [id number] Pending Review Specialty Services Required 06/29/[phone] Question Answer Is the patient ? Yes Referral Priority Within 10 days (routine) Where should this appointment be scheduled? [facility] Comments This referral is for Diabetes Self-Management Training (DSMT) by a recognized [place] Diabetes Association (ADA) coding educator: Nurse (RN), Registered Dietitian Supervisor Cd Area (RDN), and/or Diabetes Medical Nutrition Therapy (MNT) Management (dietitian only). Diabetes educators are responsible for assessing the participant's diabetes education needs, and providing diabetes self-management training in accordance with the standards set by the ADA for DSMT. Any adjustment in diabetes therapy will be made within the guidelines of standards of practice and [place] approved policies and procedures. I understand that the coding educator will keep me informed. Areas of Education: Pathophysiology Nutrition Physical Activity Medications Monitoring Acute Complications Chronic Complications Psychosocial Management Promote Health/Behavior Change Participant will be offered 1:1 education training if there is a lack of classes available within 2 months. Providers can also order 1:1 training if indicated for participant for the following reasons: 1:1 Training for Insulin Initiation Participant Inappropriate for Class Setting By my electronic signature, I understand that my patient will be offered the comprehensive ADA content area above unless deemed not appropriate of I specify otherwise here: * Evaluate & Treat - Unlimited Visits (Within 10 days (routine)) - Pending Review Specialty Diagnoses / Procedures Referred By Aris mayen Referred To Contact Obstetrics/Gynecology / Maternal Medicine Diagnoses Gestational diabetes mellitus (GDM) in third trimester, gestational diabetes method of control unspecified Nallely Brady CNM [address] [place] [address] Referral ID Status Reason Start Date Expiration Date Visits Requested Visits Authorized [id number] Pending Review Specialty Services Required 06/29/[phone] Question Answer Referral Priority Within 10 days (routine) Has the patient had a viability scan? Yes Date performed 09/16/2019 Location performed Radiology Reason for referral Diabetes Diabetes type Gestational [facility] Comments /Para: LMP: Patient's last menstrual period was 2022 (exact date). Patient is . KIM: 09/16/2023, by Last Menstrual Period Pre-Gravid BMI: 28.96 Encounter Details Date Type Department Care Team (Late st Contact Info) Description 06/29/2023 Orders Only Gynecology/Obstetrics [address] [place] [address] Nallely Brady CNM [address] [facility] [address] Gestational diabetes mellitus (GDM) in third trimester, gestational diabetes method of control unspecified*; Encounter for supervision of other normal , third trimester Allergies No known active allergiesdocumented as of this encounter (statuses as of 06/29/2023) Medications Medication Sig Dispensed Refills Start Date End Date Status Vit-Fe Fumarate-FA ( FORMULA) 28-0.8 MG TABS Take by mouth. 0 Active Breast PumpIndications:Br east feeding status of mother KIM 09/16/23, Z39.1, double electric pump 1 Each 0 06/29/2023 Active SafeTacMagTouch Verio Flex System w/Device Kit Use to [...] day as instructed 642.86 Each 06/29/2023 Active documented as of this encounter [...] units at bedtime with snack. Managed by M Growth q4 weeks NSTs 2x/week Deliver by [...] maintain these target values. Report levels to [facility] weekly. 2. Has been provided with glucometer and supplies and instructed on proper use. 3. Recommend mobility architect manager consult. Lifestyle changes are also indicated [...] poor blood sugar control, please refer to [facility] for consideration of earlier delivery. [...] 06/17/2020 Overview: 2nd baby 9#13, shoulder dystocia [facility] guidelines: early GDM screen, growth [...] money to get more. Never true 02/09/2023 [place] Depression Scale Answer Date Recorded [place] Depression Scale Total 6 06/29/2023 The thought [...] Visit Gynecology/Obstetrics Kwadwo Mondragon [address] [place] [address] Marielle Mae PA-C [address] [place] [address] Scheduled Orders Name Type Priority Associated Diagnoses Orde r Schedule MFM US MATERNAL 1ST FETUS Medical Imaging Routine Gestational diabetes mellitus (GDM) in third trimester, gestational diabetes method of control unspecified Encounter for supervision of other normal , third trimester Expected: 06/29/2023, Expires: 07/29/2024 Scheduled Referrals Name Type Priority Associated Diagnoses Orde r Schedule MATERNAL MEDICINE REFERRAL OP Referral Within 10 days (routine) Gestational diabetes mellitus (GDM) in third trimester, gestational diabetes method of control unspecified Ordered: 06/29/2023 DIABETES MANAGEMENT EDUCATION (ADA) REFERRAL Referral Within 10 days (routine) Gestational diabetes mellitus (GDM) in third trimester, gestational diabetes method of control unspecified Ordered: 06/29/2023 Health Maintenance Due Date Last Done Comments [...] as of this encounter Visit Diagnoses Diagnosis Gestational diabetes mellitus (GDM) in third trimester, gestational diabetes method of control unspecified- Primary Encounter for supervision of other normal , third trimester documented in this encounter Care Teams Pipe And Tank Fabricator Relationship Specialty Start Date End Date Maury Boss DO [address] [place] [address] PCP - General Family Medicine 03/21/13 documented as of this encounter
--- OUTSIDE RECORDS SUMMARY | 2023-09-13 14:00 | External Medical Summary ---
Author Name Unknown Address Unknown Organization K01:[facility] - [address] [facility] [place] [address] Laboratory Report Ordering Provider Test Date Status TITA HAYWARD 06/29/2023 07:12:32 Final Observation Date Value Abnormality Reference (Units ) Status Ferritin 06/29/2023 07:12:32 20 13-150 (ng /mL) Final Performing Location [facility] - [address] [place] [address]
--- OUTSIDE RECORDS SUMMARY | 2023-09-13 14:00 | External Medical Summary ---
Author Name Unknown Address Unknown Organization K01:LABORATORY [facility] - [address] [place] [address] Laboratory Report Ordering Provider Test Date Status TITA HAYWARD 06/29/2023 07:12:32 Final Observation Date Value Abnormality Reference (Units ) Status TSH 06/29/2023 07:12:32 1.65 0.27-4.20 (uIU/mL) Final Performing Location [facility] - [address] [place] [address]
--- OUTSIDE RECORDS SUMMARY | 2023-09-13 14:00 | External Medical Summary | Summary of Care ---
Author Name Unknown Organization [facility] Address [address] [place] [address] Phone [phone] Care Team Providers Care Airfield Engineer Officer Name Role Phone Maury Boss Primary Care Provider Encounter Details Date Type Department Care Team (Late st Contact Info) Description 06/29/2023 Telephone Gynecology/Obstetrics [facility] [address] [place] [address] Nallely Brady CNM [address] [place] [address] Allergies No known active allergiesdocumented as of this encounter (statuses as of 06/29/2023) Medications Medication Sig Dispensed Refills Start Date End Date Status Vit-Fe Fumarate-FA ( FORMULA) 28-0.8 MG TABS Take by mouth. 0 Active Breast PumpIndications:Br east feeding status of mother KIM 09/16/23, Z39.1, double electric pump 1 Each 0 06/29/2023 Active [employer] Verio Flex System w/Device Kit Use to [...] maintain these target values. Report levels to [facility] weekly. 2. Has been provided with glucometer and supplies and instructed on proper use. 3. Recommend weigher and crusher consult. Lifestyle changes are also indicated including [...] poor blood sugar control, please refer to [facility] for consideration of earlier delivery. [...] 06/17/2020 Overview: 2nd baby 9#13, shoulder dystocia [facility] guidelines: early GDM screen, growth [...] money to get more. Never true 02/09/2023 [place]se Depression Scale Answer Date Recorded [place]se Depression Scale Total 6 06/29/2023 The thought [...] 4:30 PM EDT Office Visit Gynecology/Obstetrics [facility] [address] [place] [address] Marielle Mae PA-C [address] [place] [address] Health Maintenance Due Date Last Done Comments [...] filedocumented as of this encounter Care Teams Airfield Engineer Officer Relationship Specialty Start Date End Date Maury Boss DO [address] [place] [address] PCP - General Family Medicine 03/21/13 documented as of this encounter
--- OUTSIDE RECORDS SUMMARY | 2023-09-13 14:00 | External Medical Summary | Summary of Care ---
Author Name Unknown Organization [facility] Address [address] [facility] [place] [address] Phone [phone] Care Team Providers Care Postal Delivery Officer Name Role Phone EliudMaury hill Primary Care Provider Reason for Visit * Reason Comments Outpatient Testing Encounter Details Date Type Department Care Team (Late st Contact Info) Description 06/29/2023 7:10 AM EDT Laboratory Laboratory, [facility] [address] [facility] [phone] [facility] 132 [place] [address] Arrived Allergies No known active allergiesdocumented as of [...] units at bedtime with snack. Managed by [facility] Growth q4 weeks NSTs 2x/week Deliver [...] maintain these target values. Report levels to [facility] weekly. 2. Has been provided with glucometer and supplies and instructed on proper use. 3. Recommend janitorial account manager consult. Lifestyle changes are also indicated [...] 06/17/2020 Overview: 2nd baby 9#13, shoulder dystocia [facility] guidelines: early GDM screen, growth u/s [...] , (FluLaval or Fluzone) 03/09/2023,01/08/2018 Seasonal Influenza, Quadrivalent, No Preserve, I M 01/10/2020 TDAP (age 10 and older)(Boostrix) 02/07/2020, documented as of this encounter Social History [...] money to get more. Never true 02/09/2023 Clay Depression Scale Answer Date Recorded Clay Depression Scale Total 0 02/09/2023 The thought of harming myself has occurred to me . Never 02/09/2023 Estimated Date of Delivery Comme nts Yes [...] Description 06/29/2023 9:15 AM EDT Office Visit Gynecology/Obstetrics Kwadwo Mondragon [address] [place] [address] BackTrinh zayas CRNP [address] [place] [address] Health Maintenance Due Date Last Done Comments Hepatitis B (3 of 3 - 3-dose series) 08/30/1994 07/05/1994, 02/11/1994 Depression Screening 10/18/2019 10/17/2018 COVID-19 Vaccine ( season) 2022 Pap Smear 06/18/2023 06/17/2020, 05/12, 03/23/2016, Additional history exists DTaP,Tdap,and Td Vaccines (3 - Td or Tdap) 02/06/2030 02/07/2020, 06/07/2018 GARDASIL-HPV IMMUNIZATION SERIES Completed 08/24/2007, [...] filedocumented as of this encounter Care Teams Postal Delivery Officer Relationship Specialty Start Date End Date Maury Boss DO [address] [facility] [place] [address] PCP - General Family Medicine 03/21/13 documented as of this encounter
--- OUTSIDE RECORDS SUMMARY | 2023-09-13 14:00 | External Medical Summary ---
Author Name Unknown Address Unknown Organization K01:[facility] [address] [facility] [place] [address] Laboratory Report Ordering Provider Test Date Status TITA HAYWARD 06/29/2023 07:12:32 Final Observation Date Value Abnormality Reference (Units ) Status SYNC LEUKOCYTES IN BLOOD BY AUTOMATED COUNT 06/29/2023 07:12:32 10.11 4.00-10.80 (K/uL) Final Segs 06/29/2023 07:12:32 82.9 Above high normal 40.0-75.0 (%) Final Lymphs % 06/29/2023 07:12:32 9.1 Below low normal 18.0-42.0 (%) Final Monos 06/29/2023 07:12:32 5.6 1.0-11.0 (%) Final Eosinophils 06/29/2023 07:12:32 0.6 0.0-6.0 (%) Final Basos 06/29/2023 07:12:32 0.3 0.0-2.0 (%) Final Immature Granulocyte, Percent 06/29/2023 07:12:32 1.5 0.0-2.0 (%) Final Absolute Segs 06/29/2023 07:12:32 8.38 Above high normal 1.80-7.70 (K/uL) Final Lymphs, absolute 06/29/2023 07:12:32 0.92 Below low normal 1.00-4.80 (K/ul) Final Monos, Abs 06/29/2023 07:12:32 0.57 0.00-1.10 (K/uL) Final Eos, Abs 06/29/2023 07:12:32 0.06 0.00-0.70 (K/uL) Final Basos, Abs 06/29/2023 07:12:32 0.03 0.00-0.20 (K/uL) Final Immature Granulocytes, Number 06/29/2023 07:12:32 0.15 0.00-0.20 (K/uL) Final Performing Location LABORATORY [facility] - [facility] [address] [facility] [address]
--- OUTSIDE RECORDS SUMMARY | 2023-09-13 14:00 | External Medical Summary ---
Author Name Unknown Address Unknown Organization [id number]:LABORATORY [facility] [address] - [address] [place] [address] Laboratory Report Ordering Provider Test Date Status TITA HAYWARD 06/29/2023 09:19:11 Final Observation Date Value Abnormality Reference (Units ) Status Glucose, 2-hr post glucose challenge 06/29/2023 09:19:11 194 Above high normal 70-154 (mg/dL) Final Performing Location LABORATORY [facility] [address] - [address] [place] [address]
--- OUTSIDE RECORDS SUMMARY | 2023-09-13 14:00 | External Medical Summary ---
Author Name Unknown Address Unknown Organization [id number]:[facility] [place] [address] [place] [address] [address] [place] [address] Laboratory Report Ordering Provider Test Date Status TITA HAYWARD 06/29/2023 07:12:32 Final Observation Date Value Abnormality Reference (Units ) Status WBC, Total 06/29/2023 07:12:32 10.11 4.00-10.8 0 (K/uL) Final RBC 06/29/2023 07:12:32 3.80 3.85-5.15 (M/uL) Final Hemoglobin 06/29/2023 07:12:32 11.3 Below low normal 12 .0-15.3 (g/dL) Final Anemia reflex testing trigge rs on a HGB < 12.0 for Females and HGB < 13.0 for Males in accordance with the WHO Anemia Guidelines
Anemia reflex testing triggers on a HGB < 12.0 for Females and HGB < 13.0 for Males in accordance with the WHO Anemia Guidelines HCT 06/29/2023 07:12:32 35.3 Below low normal 36. 0-45.2 (%) Final MCV 06/29/2023 07:12:32 92.9 81.5-97.5 (fL) Final MCH 06/29/2023 07:12:32 29.7 27.0-34.0 (pg) Final MCHC 06/29/2023 07:12:32 32.0 32.0-36.0 (g/dL) Final RDW 06/29/2023 07:12:32 13.9 11.5-15.5 (%) Final Platelets 06/29/2023 07:12:32 175 140-400 (K /uL) Final MPV 06/29/2023 07:12:32 12.0 6.6-11.1 ( fL) Final Nucleated erythrocytes/100 leukocytes [Ratio] in Blood by Automated count 06/29/2023 07:12:32 0 <=0 (/100 WBCs) Final Performing Location [facility] [place] [address] [facility] [address]
--- OUTSIDE RECORDS SUMMARY | 2023-09-13 14:00 | External Medical Summary | Summary of Care ---
Author Name Unknown Organization [facility] Address [address] [facility] [place] [address] Phone [phone] Care Team Providers Care Stone Setter Name Role Phone Maury Boss Primary Care Provider Encounter Details Date Type Department Care Team (Late st Contact Info) Description 06/29/2023 Telephone Gynecology/Obstetrics [facility] 132 [facility] [place] [address] Nallely Brady CNM [address] [facility] [place] [address] Allergies No known active allergiesdocumented as of this encounter (statuses as of 06/29/2023) Medications Medication Sig Dispensed Refills Start Date End Date Status Vit-Fe Fumarate-FA ( FORMULA) 28-0.8 MG TABS Take by mouth. 0 Active Breast PumpIndications:Br east feeding status of mother KIM 09/16/23, Z39.1, double electric pump 1 Each 0 06/29/2023 Active [employer] Verio Flex System w/Device Kit Use to test blood sugars 4 times daily (fasting, 1 hour after breakfast, lunch, and dinner) 3.21 Each 0 06/29/2023 Active [employer]Touch Verio In Vitro Strip (Glucose Blood) Use [...] maintain these target values. Report levels to [facility] weekly. 2. Has been provided with glucometer and supplies and instructed on proper use. 3. Recommend tail worker consult. Lifestyle changes are also indicated including [...] poor blood sugar control, please refer to [facility] for consideration of earlier delivery. 7. [...] 06/17/2020 Overview: 2nd baby 9#13, shoulder dystocia [facility] guidelines: early GDM screen, growth u/s [...] money to get more. Never true 02/09/2023 [place] Depression Scale Answer Date Recorded [place] Depression Scale Total 6 06/29/2023 The thought [...] Encounter - Marlene Chung LPN - 06/29/2023 1:24 PM EDT Patient notified. * Telephone Encounter - Marlene Chung LPN [...] Visit Gynecology/Obstetrics Kwadwo Mondragon [address] [place] [address] Marielle Mae PA-C [address] [place] [address] Health Maintenance Due Date Last Done Comments [...] filedocumented as of this encounter Care Teams Stone Setter Relationship Specialty Start Date End Date Maury Boss DO [address] [facility] [place] [address] PCP - General Family Medicine 03/21/13 documented as of this encounter
--- OUTSIDE RECORDS SUMMARY | 2023-09-13 14:01 | External Medical Summary | Summary of Care ---
Author Name Unknown Organization [facility] Address [address] [facility] [place] [address] Phone [phone] Care Team Providers Care City Planner Name Role Phone Maury Boss Primary Care Provider Reason for Visit * Reason Comments Return Visit Encounter Details Date Type Department Care Team (Late st Contact Info) Description 06/01/2023 3:45 PM EST Office Visit Gynecology/Obstetric [facility] 132 [facility] [place] [phone] Nallely Brady CNM [facility] [address] Supervision of other normal , antepartum*; H/O section; History of gestational diabetes in prior , currently Allergies No known active allergiesdocumented as of this encounter (statuses as of 06/01/2023) Medications Medication Sig Dispensed Refills Start Date End Date Status Vit-Fe Fumarate-FA ( FORMULA) 28-0.8 MG TABS Take by mouth. 0 Active documented as of this encounter (statuses as of 06/01/2023) Active Problems Problem Noted Date Diagnosed Date [...] as of this encounter (statuses as of 06/01/2023) Resolved Problems Problem Noted Date Diagnosed Date [...] and instructed on proper use. 3. Recommend combat systems operator consult. Lifestyle changes are also indicated including [...] poor blood sugar control, please refer to [facility] for consideration of earlier delivery. 7. [...] 06/17/2020 Overview: 2nd baby 9#13, shoulder dystocia [facility] guidelines: early GDM screen, growth u/s [...] as of this encounter (statuses as of 06/01/2023) Immunizations Name Administration Dates Next Due Seasonal [...] money to get more. Never true 02/09/2023 [place] Depression Scale Answer Date Recorded [place] Depression Scale Total 0 02/09/2023 The thought [...] Sign Reading Time Taken Comments Blood Pressure 112/76 06/01/2023 3:45 PM EST Pulse - - Temperature - - Respiratory Rate - - Oxygen Saturation - - Inhaled Oxygen Concentration - - Weight 83.9 kg (185 lb) 06/01/2023 3:45 PM EST Height 165.1 cm (5' 5") 06/01/2023 3:45 PM EST Body Mass Index 30.79 06/01/2023 3:45 PM EST documented in this encounter Progress Notes * Nallely Brady CNM - 06/01/2023 3:45 PM EST William Tucker is a 27 year old female here for her routine OB appointment at 24w5d Her Estimated Date of Delivery: 09/16/23 REVIEW OF SYSTEMS: She affirms movement. Denies vaginal bleeding, LOF, contractions, N/V, headaches PHYSICAL EXAM: Filed Vitals: 06/01/23 1545 BP: 112/76 Weight: 83.9 kg (185 lb) Height: 1.651 m (5' 5") +FHT 140s ASSESSMENT/PLAN: 1. H/O section Plans repeat CS 2. History of gestational diabetes in prior , currently Did early 1hr GTT, 3hr ordered for next visit 3. Supervision of normal - CBC WITH WBC DIFFERENTIAL AND ANEMIA REFLEX WORKUP; Future - SYPHILIS ANTIBODY SCREEN WITH REFLEX TO RPR; Future - GESTATIONAL GLUCOSE TOLERANCE, 3 HOUR; Future - we reviewed and ordered GTT and CBC for patient to complete between now and her next visit - reviewed recommendation for tdap vaccine at next visit - RTO in 4 weeks Nallely Brady CNM documented in this encounter Nursing Notes * Nicole Brice LPN - 06/01/2023 3:50 PM EST 24w5d Denies concerns Labs next visit. documented in this encounter Plan of Treatment Upcoming Encounters Date Type Department Care Team (Late st Contact Info) Description 06/29/2023 7:00 AM EDT Laboratory Laboratory, [facility] [address] [phone] Ronal Mondragon [address] [place] [address] 06/29/2023 9:15 AM EDT Office Visit Gynecology/Obstetrics Kwadwo Mondragon [address] [place] [address] [place], NEGRITA Hernandez [address] [place] [address] Scheduled Orders Name Type Priority Associated Diagnoses Orde r Schedule CBC WITH WBC DIFFERENTIAL AND ANEMIA REFLEX WORKUP Lab Routine Supervision of other normal , antepartum Expected: 06/30/2023 (Approximate), Expires: 06/01/2024 SYPHILIS ANTIBODY SCREEN WITH REFLEX TO RPR Lab Routine Supervision of other normal , antepartum Expected: 06/30/2023 (Approximate), Expires: 06/01/2024 GESTATIONAL GLUCOSE TOLERANCE, 3 HOUR Lab Routine Supervision of other normal , antepartum Expected: 06/30/2023 (Approximate), Expires: 06/01/2024 Health Maintenance Due Date Last Done Comments [...] Diagnoses Diagnosis Supervision of other normal , antepartum- Primary H/O section Other postprocedural status History of gestational diabetes in prior , currently with other poor obstetric history documented in this encounter Care Teams City Planner Relationship Specialty Start Date End Date Maury Boss DO [address] [place] [address] PCP - General Family Medicine 03/21/13 documented as of this encounter
--- OUTSIDE RECORDS SUMMARY | 2023-09-13 14:01 | External Medical Summary ---
Author Name Unknown Address Unknown Organization K01:LABORATORY [facility] - [address] [place] [address] Laboratory Report Ordering Provider Test Date Status TITA HAYWARD 06/29/2023 07:12:32 Final Observation Date Value Abnormality Reference (Units ) Status Retic, % (auto) 06/29/2023 07:12:32 3.09 Above high normal 0.80-1.90 (%) Final Reticulocytes, Absolute 06/29/2023 07:12:32 117.1 Above high normal 31.3-100.1 (K/uL) Final Reticulocyte fraction, immature 06/29/2023 07:12:32 31.1 Above high normal 2.5-20.6 (%) Final Reticulocyte HGB 06/29/2023 07:12:32 32.6 29.7-37.4 (pg) Final Performing Location LABORATORY C - [address] [place] [address]
--- OUTSIDE RECORDS SUMMARY | 2023-09-13 14:01 | External Medical Summary ---
Author Name Unknown Address Unknown Organization K01:[facility] [place] [address] [facility] [place] [address] Laboratory Report Ordering Provider Test Date Status TITA HAYWARD 06/29/2023 07:12:32 Final Observation Date Value Abnormality Reference (Units ) Status Treponema pallidum Ab [Presence] in Serum by Immunoassay 06/29/2023 07:12:32 Nonreactive Nonreactive Final No serologic evidence of syp hilis. No additional testing clinicially indicated at this time. Consider repeat testing in 2-4 weeks if acute or primary syphilis is suspected. Performing Location [facility] [place] [address] [facility] [address]
--- OUTSIDE RECORDS SUMMARY | 2023-09-13 14:02 | External Medical Summary | Summary of Care ---
Author Name Unknown Organization [facility] Address [address] [facility] [place] [address] Phone [phone] Care Team Providers Care News Agent Name Role Phone EliudMaury hill Primary Care Provider Reason for Visit * Reason Comments Return Visit Encounter Details Date Type Department Care Team (Late st Contact Info) Description 05/02/2023 3:00 PM EST Office Visit Gynecology/Obstetric [facility] [address] [place] [address] Bethel Moeller MD [address] [place] [phone] Encounter for supervision of normal first in second trimester*; H/O section; History of gestational diabetes in prior , currently ; History of shoulder dystocia in prior , currently Allergies No known active allergiesdocumented as of this encounter (statuses as of 05/02/2023) Medications Medication Sig Dispensed Refills Start Date End Date Status Vit-Fe Fumarate-FA ( FORMULA) 28-0.8 MG TABS Take by mouth. 0 Active documented as of this encounter (statuses as of 05/02/2023) Active Problems Problem Noted Date Diagnosed Date [...] as of this encounter (statuses as of 05/02/2023) Resolved Problems Problem Noted Date Diagnosed Date [...] and instructed on proper use. 3. Recommend food consultant consult. Lifestyle changes are also indicated including [...] poor blood sugar control, please refer to [facility] for consideration of earlier delivery. 7. Recommend [...] 06/17/2020 Overview: 2nd baby 9#13, shoulder dystocia [facility] guidelines: early GDM screen, growth u/s at [...] as of this encounter (statuses as of 05/02/2023) Immunizations Name Administration Dates Next Due Seasonal [...] money to get more. Never true 02/09/2023 [place] Depression Scale Answer Date Recorded [place] Depression Scale Total 0 02/09/2023 The thought [...] Sign Reading Time Taken Comments Blood Pressure 110/62 05/02/2023 2:30 PM EST Pulse - - Temperature - - Respiratory Rate - - Oxygen Saturation - - Inhaled Oxygen Concentration - - Weight 82.6 kg (182 lb) 05/02/2023 2:30 PM EST Height 165.1 cm (5' 5") 05/02/2023 2:30 PM EST Body Mass Index 30.29 05/02/2023 2:30 PM EST documented in this encounter Progress Notes * Bethel Moeller MD - 05/02/2023 3:02 PM EST Pt doing well No complaints Wishes to have repeat c/sec with BTL Anatomy scan done today documented in this encounter Nursing Notes * Su Aceves LPN - 05/02/2023 2:30 PM EST 20w3d Had anatomy US today documented in this encounter Plan of Treatment Health Maintenance Due Date Last Done Comments COVID-19 Vaccine (#1) 06/09/1994 Hepatitis B (3 of 3 - 3-dose series) 08/30/1994 07/05/1994, 02/11/1994 Depression Screening 10/18/2019 10/17/2018 Pap Smear 06/18/2023 06/17/2020, 05/12, 03/23/2016, Additional [...] Visit Diagnoses Diagnosis Encounter for supervision of normal first in second trimester- Primary Supervision of normal first H/O section Other postprocedural status History of gestational diabetes in prior , currently with other poor obstetric history History of shoulder dystocia in prior , currently with other poor obstetric history documented in this encounter Care Teams News Agent Relationship Specialty Start Date End Date Maury Boss DO [address] [place] [address] PCP - General Family Medicine 03/21/13 documented as of this encounter
--- OUTSIDE RECORDS SUMMARY | 2023-09-13 14:02 | External Medical Summary | Summary of Care ---
Author Name Unknown Organization [facility] Address [address] [facility] [place] [address] Phone [phone] Care Team Providers Care Industrial Maintenance Technician Name Role Phone [place] Primary Care Provider Reason for Visit * Reason Comments Return Visit Encounter Details Date Type Department Care Team (Late st Contact Info) Description 04/04/2023 1:00 PM EST Office Visit Gynecology/Obstetric s [facility] [address] [place] [id number] BackerTrinh CRNP [address] [place] [id number] Encounter for supervision of other normal in second trimester*; H/O section; History of gestational diabetes in prior , currently ; History of shoulder dystocia in prior , currently Allergies No known active allergiesdocumented as of this encounter (statuses as of 04/04/2023) Medications Medication Sig Dispensed Refills Start Date End Date Status Vit-Fe Fumarate-FA ( FORMULA) 28-0.8 MG TABS Take by mouth. 0 Active documented as of this encounter (statuses as of 04/04/2023) Active Problems Problem Noted Date Diagnosed Date [...] as of this encounter (statuses as of 04/04/2023) Resolved Problems Problem Noted Date Diagnosed Date [...] and instructed on proper use. 3. Recommend modeling agent consult. Lifestyle changes are also indicated including [...] poor blood sugar control, please refer to [facility] for consideration of earlier delivery. 7. Recommend [...] 06/17/2020 Overview: 2nd baby 9#13, shoulder dystocia [facility] guidelines: early GDM screen, growth u/s at [...] as of this encounter (statuses as of 04/04/2023) Immunizations Name Administration Dates Next Due Seasonal [...] money to get more. Never true 02/09/2023 Denver Depression Scale Answer Date Recorded [place] Depression Scale Total 0 02/09/2023 The thought [...] Sign Reading Time Taken Comments Blood Pressure 114/66 04/04/2023 1:05 PM EST Pulse - - Temperature - - Respiratory Rate - - Oxygen Saturation - - Inhaled Oxygen Concentration - - Weight 81.2 kg (179 lb) 04/04/2023 1:05 PM EST Height - - Body Mass Index 29.79 03/09/2023 9:15 AM EST documented in this encounter Progress Notes * Trinh Abernathy CRNP - 04/04/2023 1:08 PM EST 16w3d No concerns. Not sure if feeling movement yet. No cramping/bleeding, declines quad screen. Anatomy scan at next visit in 4 weeks. NEGRITA [place] * Su Aceves LPN - 04/04/2023 1:05 PM EST 16w3d Denies any issues documented in this encounter Plan of Treatment Upcoming Encounters Date Type Department Care Team (Late st Contact Info) Description 05/02/2023 1:30 PM EST Imaging Radiology [facility] [address] [facility] [address] [facility] [place] [id number] 05/02/2023 3:00 PM EST Office Visit Gynecology/Obstetrics [facility] [address] [facility] [place] [address] Bethel Moeller MD [address] [facility] [place] [phone] Scheduled Orders Name Type Priority Associated Diagnoses Orde r Schedule US PREG SINGLE/1ST GEST, 14 WEEKS OR LATER Medical Imaging Routine Encounter for supervision of other normal in second trimester Expected: 05/05/2023 (Approximate), Expires: 05/05/2024 Health Maintenance Due Date Last Done Comments COVID-19 Vaccine (#1) 06/09/1994 Hepatitis B (3 of 3 - 3-dose series) 08/30/1994 07/05/1994, 02/11/1994 Depression Screening 10/18/2019 10/17/2018 Pap Smear 06/18/2023 06/17/2020, /, 03/23/2016, Additional history exists DTaP,Tdap,and Td Vaccines [...] Encounter for supervision of other normal in second trimester- Primary H/O section Other postprocedural status History of gestational diabetes in prior , currently with other poor obstetric history History of shoulder dystocia in prior , currently with other poor obstetric history documented in this encounter Care Teams Industrial Maintenance Technician Relationship Specialty Start Date End Date Maury Boss DO [address] [place] [id number] PCP - General Family Medicine 03/21/13 documented as of this encounter
[2023-09-13] MEDS: SIMETHICONE 80 MG CHEW PO SCH (14:30)
[2023-09-13] MEDS: DOCUSATE SODIUM 100 MG CAP PO SCH (20:19)
[2023-09-13] MEDS: ONDANSETRON INJ 2 MG/ML 2 ML VIAL IV PRN (21:23)
[2023-09-14] MEDS ORDERED: MEPERIDINE HCL 50 MG/ML CARP IV PRN (01:16)
[2023-09-14] MEDS ORDERED: KETOROLAC 30 MG/ML VIAL IV PRN (01:17)
[2023-09-14] MEDS ORDERED: diphenhydrAMINE Capsule 25 MG CAP PO PRN (01:17)
[2023-09-14] MEDS ORDERED: diphenhydrAMINE 50 MG/ML VIAL IV PRN (01:17)
[2023-09-14] MEDS ORDERED: PROMETHAZINE HCL 25 MG in SODIUM CHLORIDE 0.9% 50 ML IV PRN (01:17)
[2023-09-14] MEDS: oxyCODONE/ACETAMINOPHEN 5mg/325mg TAB PO PRN (03:46)
[2023-09-14] MEDS: IBUPROFEN 600 MG TAB PO PRN (03:47)
[2023-09-14 06:19] LABS: Basophils # (auto) 0.03 K/uL (0.00-0.20); Basophils % (auto) 0.2 %; Eosinophils # (auto) 0.06 K/uL (0.00-0.50); Eosinophils % (auto) 0.4 %; Hematocrit (blood only) 28.3 % (37.0-47.0); Hemoglobin 9.8 g/dl (12.0-16.0); Immature Granulocytes # (auto) 0.12 K/uL (0.01-0.20); Immature Granulocytes % (auto) 0.8 %; Lymphocytes # (auto) 0.99 K/uL (1.20-3.40); Lymphocytes % (auto) 6.2 %; Mean Corpuscular Hemoglobin 29.4 pg (25.0-34.0); Mean Corpuscular Hgb Conc 34.6 g/dL (32.0-36.0); Mean Platelet Volume 11.5 fL (9.4-12.4); Monocytes # (auto) 0.66 K/uL (0.11-0.59); Monocytes % (auto) 4.2 %; Neutrophils # (auto) 14.01 K/uL (1.40-6.50); Neutrophils % (auto) 88.2 %; Platelet Count 156 K/uL (130-400); RDW Coefficient of Variation 13.8 % (11.5-14.5); RDW Standard Deviation 42.6 fL (36.4-46.3); Red Blood Count 3.33 M/uL (4.20-5.40); White Blood Count 15.87 K/ul (4.8-10.8)
[2023-09-14] MEDS: DIPHTHER/TETAN/PERTUS Vaccine (Tdap, Adol/Adult) 0.5mL IM ONE (08:04)
[2023-09-14] MEDS: FERROUS SULFATE 325 MG TAB PO SCH (08:08)
[2023-09-14] MEDS: PRENATAL VITAMIN 1 TAB PO SCH (08:08)
--- NOTE | 2023-09-14 11:06 | Obstetrical Progress Note ---
Date of Service September 14, 2023 Subjective Ambulation: ambulating normally Voiding: no voiding problems Passing Gas:: Yes Diet Tolerance:: regular diet Lochia:: Small Feeding Type:: breast feeding Current Pain Level(1-10): 0 doing well Physical Exam Constitutional WD/WN, vitals as above Gastrointestinal (Abdomen) Inspection/Auscultation: abdomen normal to inspection abdomen soft and non-tender Musculoskeletal Extremities: extremities normal to inspection Skin no rashes, warm and dry Neurologic patellar DTR's 2+ bilat, sensation intact Psychiatric A+Ox3, euthymic affect Results & Data Vital Signs (Past 12 Hours) Vital Signs Temp Pulse Resp BP Pulse Ox O2 Del Method 09/14/23 07:45 36.7 C 100 H 18 117/70 97 Room Air 09/14/23 04:00 37.2 C 97 H 16 123/74 99 Room Air 09/14/23 01:00 16 99 09/14/23 00:00 18 99 Laboratory Results Laboratory Results - last 24 hr 09/13/23 09/14/23 05:49 05:46 WBC 15.87 H RBC 3.33 L Hgb 9.8 L Hct 28.3 L MCV 85.0 MCH 29.4 MCHC 34.6 RDW Std Deviation 42.6 RDW Coeff of Annette 13.8 Plt Count 156 MPV 11.5 Immature Gran % (Auto) 0.8 Neut % (Auto) 88.2 Lymph % (Auto) 6.2 Rush % (Auto) 4.2 Eos % (Auto) 0.4 Baso % (Auto) 0.2 Neut # (Auto) 14.01 H Lymph # (Auto) 0.99 L Rush # (Auto) 0.66 H Eos # (Auto) 0.06 Baso # (Auto) 0.03 Immature Gran # (Auto) 0.12 RPR Nonreactive
[2023-09-14] MEDS: SODIUM CHLORIDE 0.9% 1,000 ML IV SCH (15:04)
[2023-09-14] MEDS: MoRPHine SULFATE PF 1 MG/ML 10 ML AMP/VIAL INT SPINAL ONE (15:04)
[2023-09-14] MEDS: bisacodyL 5 MG TABEC PO SCH (21:17)
[2023-09-15 06:11] LABS: Hematocrit (blood only) 27.8 % (37.0-47.0); Hemoglobin 9.3 g/dl (12.0-16.0)
[2023-09-15] MEDS ORDERED: bisacodyL 10 MG SUPP PR PRN (09:18)
== END 2023-09-15 11:45 | disposition home or self-care (01) | DRG 785 ==
LOC: 4S1 05:39 → EDSTATUS 07:30 → 4E2 12:42
PROC: M.PPTLD (2023-09-13 07:30)
DX: O24.420 Gestational diabetes mellitus in childbirth, diet controlled; O34.211 Maternal care for low transverse scar from previous cesarean delivery; O69.81X0 Labor and delivery complicated by cord around neck, without compression, not applicable or unspecified; Z3A.39 39 weeks gestation of pregnancy; Z37.0 Single live birth; Z30.2 Encounter for sterilization